=== PATIENT | female | born 1945 | race Caucasian/White ===

== ENCOUNTER 2019-02-05 10:02 | Inpatient (IN) | payer MEDICARE ==
[2019-02-05] MEDS ORDERED: methylPREDNISolone SOD SUCCI 125 MG/2 ML VIAL IV STA (10:25)
[2019-02-05] MEDS ORDERED: IPRATROPIUM-ALBUTEROL 3 ML NEB INHALATION STA (10:25)
[2019-02-05 10:49] LABS: Anisocytosis Slight; Basophils # (A) 0.1 k/uL (0-0.2); Basophils % (A) 1 %; Eosinophils # (A) 0.1 k/uL (0-0.7); Eosinophils % (A) 1 %; HCT 36.8 % (34.0-46.0); Hypochromasia Marked; Lymphocytes # (A) 1.3 k/uL (1.0-4.8); Lymphocytes % (A) 14 %; MCH 27.1 pg (25.0-35.0); MCHC 29.8 g/dL (31.0-37.0); Mean Platelet Volume 7.2; Monocytes # (A) 0.5 k/uL (0-1.0); Monocytes % (A) 6 %; Neutrophils # (A) 7.1 k/uL (1.3-7.7); Neutrophils % (A) 77 %; Platelet Count 306 k/uL (150-450); Poikilocytosis Slight; RBC 4.05 m/uL (3.80-5.40); RDW 17.4 % (11.5-15.5); WBC 9.2 k/uL (3.8-10.6)
--- NOTE | 2019-02-05 10:52 | ED ---
SOB HPI - General Chief Complaint: Shortness of Breath Stated Complaint: SOB Time Seen by Provider: 02/05/19 10:12 Source: patient Mode of arrival: wheelchair Limitations: no limitations - History of Present Illness Initial Comments: 73-year-old female past history of COPD, diabetes on metformin presents today for chief complaint of shortness of breath 1 week. Patient states she has been short of breath especially when a bleeding for the past week. Patient states that she has had shortness of breath for as long she can remember however she states that this is increased from baseline. Patient states she did have an episode of chest pressure yesterday that lasted for a few moments while sitting. Patient states that when she has not experienced again. Patient denies any current chest pain or pressure. Patient states that she has noticed that her right lower extremity has been swollen. Patient denies history of cancer, recent surgeries hemoptysis or history of heart failure. Patient states that she has increased shortness of breath when lying flat. Patient denies cough congestion and fever. She denies any anticoagulation use. Remaining review of systems negative. Upon arrival patient is speaking complete sentences, making joke but does appear to be using accessory muscles. 80% on RA, denies home oxygen. - Related Data Home Medications Medication Instructions Recorded Confirmed Ascorbic Acid [Vitamin C] 1,000 mg PO DAILY 02/05/19 02/05/19 Atorvastatin [Lipitor] 40 mg PO DAILY 02/05/19 02/05/19 Bisoprol/Hydrochlorothiazide 1 tab PO DAILY 02/05/19 02/05/19 [Bisoprolol-Hctz 5-6.25 mg Tab] Cyanocobalamin (Vitamin B-12) 1,000 mcg PO DAILY 02/05/19 02/05/19 [Vitamin B-12] Ezetimibe [Zetia] 10 mg PO DAILY 02/05/19 02/05/19 Ferrous Sulfate [Feosol] 1,300 mg PO DAILY 02/05/19 02/05/19 Glucosamine/Chondr Meyer A Sod [Osteo 1 tab PO DAILY 02/05/19 02/05/19 Bi-Flex Caplet] Levothyroxine Sodium [Synthroid] 200 mcg PO DAILY 02/05/19 02/05/19 Lisinopril [Zestril] 10 mg PO DAILY 02/05/19 02/05/19 Omeprazole [PriLOSEC] 20 mg PO DAILY 02/05/19 02/05/19 Selenium 200 mcg PO DAILY 02/05/19 02/05/19 Venlafaxine HCl [Effexor XR] 75 mg PO DAILY 02/05/19 02/05/19 metFORMIN HCL 1,000 mg PO DAILY 02/05/19 02/05/19 sitaGLIPtin [Januvia] 100 mg PO DAILY 02/05/19 02/05/19 Allergies Allergy/AdvReac Type Severity Reaction Status Date / Time No Known Allergies Allergy Verified 02/05/19 10:43 Review of Systems ROS Statement: Those systems with pertinent positive or pertinent negative responses have been documented in the HPI. ROS Other: All systems not noted in ROS Statement are negative. Past Medical History Past Medical History: COPD, Diabetes Mellitus, Hypertension, Thyroid Disorder History of Any Multi-Drug Resistant Organisms: None Reported Past Surgical History: Cholecystectomy, Tubal Ligation Past Psychological History: No Psychological Hx Reported Smoking Status: Current every day smoker Past Alcohol Use History: None Reported Past Drug Use History: None Reported General Exam - General Exam Comments Initial Comments: General: The patient is awake and alert, in no distress Eye: Pupils are equal, round and reactive to light, extra-ocular movements are intact. No nystagmus. There is normal conjunctiva bilaterally. No signs of icterus. Ears, nose, mouth and throat: There are moist mucous membranes and no oral lesions. Neck: The neck is supple, there is no tenderness or JVD. Cardiovascular: There is a regular rate and rhythm. No murmur, rub or gallop is appreciated. Respiratory: Lungs sounds diminshed at bases.respirations are labored.No wh eezes, stridor, or rhonchi. Rales noted. Use of abdominal muscles Gastrointestinal: Soft, non-distended, non-tender abdomen without masses or organomegaly noted. There is no rebound or guarding present. No CVA tenderness. Bowel sounds are unremarkable. Musculoskeletal: Normal ROM, no tenderness. Strength 5/5. Sensation intact. Radial and DP pulses equal bilaterally 2+. Neurological: A&O x 3. CN II-XII intact, There are no obvious motor or sensory deficits. Coordination appears grossly intact. Speech is normal. Skin: Skin is warm and dry and no rashes or lesions are noted. Right LE pitting edema. Psychiatric: Cooperative, appropriate mood & affect, normal judgment. Limitations: no limitations Course Vital Signs 02/05/19 02/05/19 02/05/19 10:05 10:37 10:45 Temperature 97.3 F L Pulse Rate 108 H 92 Respiratory 26 H 26 H 25 H Rate Blood Pressure 165/74 168/97 O2 Sat by Pulse 80 L 92 L Oximetry 02/05/19 02/05/19 02/05/19 10:48 10:59 11:00 Temperature Pulse Rate 96 98 100 Respiratory 24 Rate Blood Pressure 163/82 O2 Sat by Pulse 91 L Oximetry Medical Decision Making - Medical Decision Making 73-year-old female presenting for shortness of breath increasing for 1 week. Increase with ambulation and lying flat. Lungs bases diminished. Concern for CHF. Chest x-ray revealed extensive pleural effusions most likely from CHF. BNP >05138. Troponin <.030. Patient has no previous diagnosis. Patient is fluid overloaded on examination however is only the right leg CT of the chest revealed no evidence of pulmonary embolism. Patient hypoxia improved from 80%-91% on oxygen. Patient given 40mg IV lasix in ER. Patient admitted to [facility] who spoke with my attending provider Dr. Resendiz. Cardiology on consult. Will obtain ECHO on inpatient basis. Patient agreeable with admission. - Lab Data Result diagrams: 02/05/19 10:32 02/05/19 10:32 Lab Results 02/05/19 02/05/19 02/05/19 Range/Units 10:32 10:32 10:32 WBC 9.2 (3.8-10.6) k/uL RBC 4.05 (3.80-5.40) m/uL Hgb 11.0 L (11.4-16.0) gm/dL Hct 36.8 (34.0-46.0) % MCV 91.0 (80.0-100.0) fL MCH 27.1 (25.0-35.0) pg MCHC 29.8 L (31.0-37.0) g/dL RDW 17.4 H (11.5-15.5) % Plt Count 306 (150-450) k/uL Neutrophils % 77 % Lymphocytes % 14 % Monocytes % 6 % Eosinophils % 1 % Basophils % 1 % Neutrophils # 7.1 (1.3-7.7) k/uL Lymphocytes # 1.3 (1.0-4.8) k/uL Monocytes # 0.5 (0-1.0) k/uL Eosinophils # 0.1 (0-0.7) k/uL Basophils # 0.1 (0-0.2) k/uL Hypochromasia Marked Poikilocytosis Slight Anisocytosis Slight PT 11.3 (9.0-12.0) sec INR 1.1 (<1.2) APTT 23.9 (22.0-30.0) sec D-Dimer 1.77 H (<0.60) mg/L FEU Sodium 141 (137-145) mmol/L Potassium 3.9 (3.5-5.1) mmol/L Chloride 105 (98-107) mmol/L Carbon Dioxide 24 (22-30) mmol/L Anion Gap 12 mmol/L BUN 12 (7-17) mg/dL Creatinine 0.72 (0.52-1.04) mg/dL Est GFR (CKD-EPI)AfAm >90 (>60 ml/min/1.73 sqM) Est GFR (CKD-EPI)NonAf 84 (>60 ml/min/1.73 sqM) Glucose 185 H (74-99) mg/dL Calcium 9.3 (8.4-10.2) mg/dL Magnesium 1.6 (1.6-2.3) mg/dL Total Bilirubin 1.2 (0.2-1.3) mg/dL AST 20 (14-36) U/L ALT 9 (9-52) U/L Alkaline Phosphatase 82 (38-126) U/L Troponin I (0.000-0.034) ng/mL NT-Pro-B Natriuret Pep pg/mL Total Protein 7.7 (6.3-8.2) g/dL Albumin 4.0 (3.5-5.0) g/dL 02/05/19 02/05/19 Range/Units 10:32 10:32 WBC (3.8-10.6) k/uL RBC (3.80-5.40) m/uL Hgb (11.4-16.0) gm/dL Hct (34.0-46.0) % MCV (80.0-100.0) fL MCH (25.0-35.0) pg MCHC (31.0-37.0) g/dL RDW (11.5-15.5) % Plt Count (150-450) k/uL Neutrophils % % Lymphocytes % % Monocytes % % Eosinophils % % Basophils % % Neutrophils # (1.3-7.7) k/uL Lymphocytes # (1.0-4.8) k/uL Monocytes # (0-1.0) k/uL Eosinophils # (0-0.7) k/uL Basophils # (0-0.2) k/uL Hypochromasia Poikilocytosis Anisocytosis PT (9.0-12.0) sec INR (<1.2) APTT (22.0-30.0) sec D-Dimer (<0.60) mg/L FEU Sodium (137-145) mmol/L Potassium (3.5-5.1) mmol/L Chloride (98-107) mmol/L Carbon Dioxide (22-30) mmol/L Anion Gap mmol/L BUN (7-17) mg/dL Creatinine (0.52-1.04) mg/dL Est GFR (CKD-EPI)AfAm (>60 ml/min/1.73 sqM) Est GFR (CKD-EPI)NonAf (>60 ml/min/1.73 sqM) Glucose (74-99) mg/dL Calcium (8.4-10.2) mg/dL Magnesium (1.6-2.3) mg/dL Total Bilirubin (0.2-1.3) mg/dL AST (14-36) U/L ALT (9-52) U/L Alkaline Phosphatase (38-126) U/L Troponin I 0.027 (0.000-0.034) ng/mL NT-Pro-B Natriuret Pep 82108 pg/mL Total Protein (6.3-8.2) g/dL Albumin (3.5-5.0) g/dL Disposition Clinical Impression: New onset of congestive heart failure, Shortness of breath, Pleural effusion, Elevated brain natriuretic peptide (BNP) level, Right leg swelling, D-dimer, elevated Disposition: ADMITTED IP TO THIS HOSP Condition: Stable Is patient prescribed a controlled substance at d/c from ED?: No Referrals: Odin Boswell MD [Primary Care Provider] - 1-2 days Time of Disposition: 12:40 Decision to Admit Reason: Admit from EC Decision Date: 02/05/19 Decision Time: 12:40
--- NOTE | 2019-02-05 10:53 | XR ---
EXAMINATION TYPE: XR chest 1V portable DATE OF EXAM: 02/05/2019 COMPARISON: NONE HISTORY: History of COPD with shortness of breath today. TECHNIQUE: Single frontal portable view of the chest is obtained. FINDINGS: There is cardiomegaly with atherosclerotic aorta is increased alveolar and interstitial ma rkings bilaterally. No large pleural effusion or pneumothorax. Some old left lateral rib fractures a re felt present. IMPRESSION: Suspect CHF exacerbation as is cardiomegaly with mild to moderate alveolar and interstit ial edema suspected bilaterally. Correlate clinically. Comparison with old outside chest x-ray would be beneficial to exclude underlying parenchymal fibrosis.
[2019-02-05] MEDS ORDERED: FUROSEMIDE 10 MG/ML 4 ML VIAL IV STA ×2 (10:54→22:25)
[2019-02-05 10:57] LABS: ALT 9 U/L (9-52); AST 20 U/L (14-36); African American GFR (CKD) >90 (>60 ml/min/1.73 sqM); Alkaline Phosphatase 82 U/L (38-126); Anion Gap 12 mmol/L; Blood Urea Nitrogen 12 mg/dL (7-17); Calcium 9.3 mg/dL (8.4-10.2); Carbon Dioxide 24 mmol/L (22-30); Chloride 105 mmol/L (98-107); Glucose 185 mg/dL (74-99); Magnesium 1.6 mg/dL (1.6-2.3); Potassium 3.9 mmol/L (3.5-5.1); Sodium 141 mmol/L (137-145); Total Bilirubin 1.2 mg/dL (0.2-1.3); Total Protein 7.7 g/dL (6.3-8.2)
[2019-02-05 11:06] LABS: INR 1.1 (<1.2); Partial Thromboplastin Time 23.9 sec (22.0-30.0); Prothrombin Time 11.3 sec (9.0-12.0)
[2019-02-05 11:10] LABS: D-Dimer 1.77 mg/L FEU (<0.60)
--- NOTE | 2019-02-05 11:50 | CT ---
CT CHEST FOR PULMONARY EMBOLISM. EXAMINATION TYPE: CT angio chest DATE OF EXAM: 02/05/2019 INDICATION: Right leg swelling and shortness of breath for [address] DLP: 371.7 mGycm, Automated exposure control for dose reduction was used. CONTRAST: Patient injected with 100 mL of Isovue 370. COMPARISON: Chest x-ray 02/05/2019 TECHNIQUE: CT of the chest is performed on a spiral scan at 2 mm thick sections. Study is performed with intravenous contrast timed for evaluation for pulmonary embolism. This will limit additional po rtions of the evaluation. 3-D MIP images reconstructed by the technologist are reviewed on the compu ter in the coronal and sagittal planes. FINDINGS: No persistent filling defects are evident to suggest an acute pulmonary embolism. No right heart stra in evident. There is a prominent pretracheal lymph nodes present. There appears to be a 1.5 cm pretracheal lymph node superiorly. The ascending aorta diameter at the level of the main pulmonary artery is 4.0 cm. The main pulmonary artery diameter at the bifurcation is 3.4 cm. Emphysematous changes are present bilaterally. There is a small to moderate right pleural effusion. T here is a 0.5 cm peripheral left upper lung field density. Series 406 image 34. Peripheral areas of p neumonitis is in the anterior lateral left upper lobe measuring 0.8 cm. Series 406 image 43. Subtle a reas of pneumonitis within the periphery of the right middle lobe. Compressive atelectasis is likely present at the bilateral lung bases. Minimal left pleural effusion may be present. Limited CT section through the upper abdomen are unremarkable. IMPRESSIONS: 1. No acute pulmonary embolism. 2. Small to moderate right and minimal left pleural effusion with adjacent atelectasis. 3. Scattered areas of pneumonitis and density within the lung dove discussed above.
[2019-02-05] MEDS ORDERED: NALOXONE 0.4 MG/ML 1 ML VIAL IV PRN (12:37)
--- NOTE | 2019-02-05 15:21 | P.HPIM ---
History of Present Illness Chief Complaint: Shortness of breath This very pleasant 73-year-old female past medical history significant for hypertension, diabetes, COPD comes in with shortness of breath. The patient said that she's been having shortness of breath for the past 1 week and the shortness of breath is progressively getting worse and she said that she has shortness of breath for an exertion. She had an episode of chest pressure ye sterday while she was sitting but subsided on its own. She does not complain of any racing heart, she does not complain of any cough, no abdominal pain, nausea and vomiting, or diarrhea constipation, no tingling numbness of any extremities, no itch no rash. Next ER course-temperature was normal heart rate was 100 respiration 20, blood pressure 160-82 satting 91%. Labwork was done which showed WBC 9.2 hemoglobin 11.0 platelets 306 d-dimer was 1.77 sodium 141 potassium 3.9 bun 12 creatinine 0.72 GFR was more than [address] of the chest was done which showed no acute PE, small to moderate right and minimal left pleural effusion with adjacent atelectasis, scattered areas pneumonitis. Chest x-ray was done which possible CHF Review of Systems All systems: negative Past Medical History Past Medical History: COPD, Diabetes Mellitus, Hyperlipidemia, Hypertension, Pneumonia, Thyroid Disorder Additional Past Medical History / Comment(s): NIDDM type II, bronchitis, hypothy roid, anemia with . History of Any Multi-Drug Resistant Organisms: None Reported Past Surgical History: Cholecystectomy, Tonsillectomy, Tubal Ligation Past Anesthesia/Blood Transfusion Reactions: No Reported Reaction, Motion Sickness Smoking Status: Current every day smoker - Past Family History Father Family Medical History: No Reported History Additional Family Medical History / Comment(s): Father lived into his 80s Mother Family Medical History: Myocardial Infarction (ME) Additional Family Medical History / Comment(s): Mother at the age of 56yrs pt believes was from a ME Medications and Allergies Home Medications Medication Instructions Recorded Confirmed Type Ascorbic Acid [Vitamin C] 1,000 mg PO DAILY 02/05/19 02/05/19 History Atorvastatin [Lipitor] 40 mg PO DAILY 02/05/19 02/05/19 History Bisoprol/Hydrochlorothiazide 1 tab PO DAILY 02/05/19 02/05/19 History [Bisoprolol-Hctz 5-6.25 mg Tab] Cyanocobalamin (Vitamin B-12) 1,000 mcg PO DAILY 02/05/19 02/05/19 History [Vitamin B-12] Ezetimibe [Zetia] 10 mg PO DAILY 02/05/19 02/05/19 History Ferrous Sulfate [Feosol] 1,300 mg PO DAILY 02/05/19 02/05/19 History Glucosamine/Chondr Meyer A Sod [Osteo 1 tab PO DAILY 02/05/19 02/05/19 History Bi-Flex Caplet] Levothyroxine Sodium [Synthroid] 200 mcg PO DAILY 02/05/19 02/05/19 History Lisinopril [Zestril] 10 mg PO DAILY 02/05/19 02/05/19 History Omeprazole [PriLOSEC] 20 mg PO DAILY 02/05/19 02/05/19 History Selenium 200 mcg PO DAILY 02/05/19 02/05/19 History Venlafaxine HCl [Effexor XR] 75 mg PO DAILY 02/05/19 02/05/19 History metFORMIN HCL 1,000 mg PO DAILY 02/05/19 02/05/19 History sitaGLIPtin [Januvia] 100 mg PO DAILY 02/05/19 02/05/19 History Allergies Allergy/AdvReac Type Severity Reaction Status Date / Time No Known Allergies Allergy Verified 02/05/19 10:43 Physical Exam Vitals: Vital Signs Temp Pulse Resp BP Pulse Ox 02/05/19 13:30 93 30 H 121/92 91 L 02/05/19 12:30 98 163/84 93 L 02/05/19 11:00 100 24 163/82 91 L 02/05/19 10:59 98 02/05/19 10:48 96 02/05/19 10:45 92 25 H 168/97 92 L 02/05/19 10:37 26 H 02/05/19 10:05 97.3 F L 108 H 26 H 165/74 80 L Intake and Output 02/05/19 02/05/19 02/05/19 06:59 14:59 22:59 Other: Weight 90.718 kg On exam, alert and oriented x3. HEENT: Conjunctivae normal. eyes normal. NECK: No JVD. No thyroid enlargement. No LNs CARDIOVASCULAR: S1, S2 positive RESPIRATION: Breath sounds diminished in the bases. No rhonchi or crackles. No bronchial breathing. ABDOMEN: Soft, nontender . No guarding. no masses palpable. No ascites, No hepatosplenomegaly.Bowel sounds heard. LEGS: Patient is having +2 pedal edema over the right lower r extremity. Patient is having +1 pedal edema in the left extremity NERVOUS SYSTEM: Cranial N 2-12 grossly normal. Moves all 4 limbs. No focal deficits. No sensory deficit. No signs of cerebellar dysfucntion. Skin: no ulcer no rash Joints: No active swelling. No inflammation. Lymphatic system. No LN neck axilla or groin. Results CBC & Chem 7: 02/05/19 10:32 02/05/19 10:32 Labs: Abnormal Lab Results - Last 24 Hours (Table) 02/05/19 02/05/19 02/05/19 Range/Units 10:32 10:32 10:32 Hgb 11.0 L (11.4-16.0) gm/dL MCHC 29.8 L (31.0-37.0) g/dL RDW 17.4 H (11.5-15.5) % D-Dimer 1.77 H (<0.60) mg/L FEU Glucose 185 H (74-99) mg/dL Thrombosis Risk Factor Assmnt - Choose All That Apply Any of the Below Risk Factors Present?: Yes Each Factor Represents 1 point: Abnormal pulmonary function (COPD), Heart failure (<1month), Obesity (BMI >25) Other Risk Factors: Yes Each Risk Factor Represents 2 Points: Age 61-74 years Other congenital or acquired thrombophilia - If yes, enter type in comment: No Thrombosis Risk Factor Assessment Total Risk Factor Score: 5 Thrombosis Risk Factor Assessment Level: High Risk Assessment and Plan Assessment: - Acute respiratory failure - Acute CHF exacerbation - Hypertension - Diabetes - History of COPD - Right lower Ixodes swelling Plan - We'll admit the patient selective unit - We'll continue the Lasix - We'll consult cardiology for the expert recommendations - We'll resume the patient's home medication except for we'll hold off on the patient's metformin and start the patient sliding scale insulin - We'll get the ultrasound of the lower extremities to rule out DVT patient has unequal swelling of the lower extremities - DVT and GI prophylaxis - We'll order for lab work in the morning - Expected length of stay more than 2 midnights - Patient wants a full code
--- NOTE | 2019-02-05 16:37 | US ---
EXAMINATION TYPE: US venous doppler duplex LE BI DATE OF EXAM: 02/05/2019 4:22 PM COMPARISON: NONE CLINICAL HISTORY: R/O DVT. Right foot swelling noted by patient when uses inhaler; in EC for KAMRYN; amalia ateral pleural effusion SIDE PERFORMED: Bilateral TECHNIQUE: The lower extremity deep venous system is examined utilizing real time linear array sonog gama with graded compression, doppler sonography and color-flow sonography. VESSELS IMAGED: Common Femoral Vein Deep Femoral Vein Greater Saphenous Vein * Femoral Vein Popliteal Vein Small Saphenous Vein * Proximal Calf Veins (* superficial vessels) Right Leg: Negative for DVT Left Leg: Negative for DVT IMPRESSION: Normal bilateral leg duplex venous sonogram.
[2019-02-05 21:02] LABS: Glucose,Whole Blood 187 mg/dL (75-99)
[2019-02-05 22:38] LABS: Glucose,Whole Blood 185 mg/dL (75-99)
[2019-02-05] MEDS: INSULIN ASPART (NovoLOG) 100 UNIT/ML VIAL SQ SCH (22:40)
[2019-02-06 06:29] LABS: Glucose,Whole Blood 125 mg/dL (75-99)
[2019-02-06] MEDS: INSULIN ASPART (NovoLOG) 100 UNIT/ML VIAL SQ SCH ×4 (06:36→21:23)
[2019-02-06] MEDS: LEVOTHYROXINE 100 MCG TAB PO SCH (06:49)
[2019-02-06] MEDS: PANTOPRAZOLE 40 MG TABLET PO SCH (06:49)
[2019-02-06 08:11] LABS: Anisocytosis Slight; HCT 35.8 % (34.0-46.0); HGB 10.6 gm/dL (11.4-16.0); Hypochromasia Marked; MCHC 29.6 g/dL (31.0-37.0); MCV 91.2 fL (80.0-100.0); Platelet Count 303 k/uL (150-450); Poikilocytosis Slight; RBC 3.92 m/uL (3.80-5.40); RDW 17.2 % (11.5-15.5); WBC 11.6 k/uL (3.8-10.6)
--- NOTE | 2019-02-06 08:13 | ECHOF ---
Referral Reason:new onset CHF MEASUREMENTS -------- HEIGHT: 165.1 cm WEIGHT: 90.7 kg BP: 121/92 RVIDd: 4.7 cm (< 3.3) IVSd: 1.6 cm (0.6 - 1.1) LVIDd: 4.4 cm (3.9 - 5.3) LVPWd: 1.4 cm (0.6 - 1.1) IVSs: 1.5 cm LVIDs: 3.8 cm LVPWs: 1.8 cm LAESV Index (A-L): 49.36 ml/m Ao Diam: 2.8 cm (2.0 - 3.7) AV Cusp: 1.2 cm (1.5 - 2.6) LA Diam: 5.4 cm (2.7 - 3.8) MV E Lon: 1.60 m/s MV DecT: 196 ms MV A Lon: 1.86 m/s MV E/A Ratio: 0.86 AV maxP.98 mmHg AV meanP.70 mmHg AR PHT: 356 ms RAP: 20.00 mmHg RVSP: 65.35 mmHg FINDINGS -------- Sinus rhythm. This was a technically difficult study with suboptimal apical views. The left ventricular size is normal. There is moderate concentric left ventricular hypertrophy. T here is moderate global hypokinesis of LV . Overall left ventricular systolic function is moderatel y impaired with, an EF between 35 - 40 %. Left ventricular fillimg pressure cannot be estimated due to severe mitral annular calcification. Septal Hypokinesis Posterior Hypokinesis. The right ventricle is severely enlarged. LA is severely dilated >40 ml/m2 RA appears enlarged. Lumason used Interatrial and interventricular septum intact. There is moderate to severe aortic valve sclerosis. There is [id number] aortic regurgitation. There is mild aortic stenosis present. Peak/mean gradient across the Aortic Valve is 31.98mmHg / 15.70mmHg. The mitral valve leaflets are moderately thickened. Severe mitral annular calcification present. Moderate mitral regurgitation is present. Moderate to severe tricuspid regurgitation present. There is severe pulmonary hypertension. The r ight ventricular systolic pressure, as measured by Doppler, is 65.35mmHg. The pulmonic valve is normal. The aortic root size is normal. The inferior vena cava is dilated with no significant inspiratory collapse which is consistent estima carmencita right atrial pressure of >20 mmHg. There is a small, generalized pericardial effusion present. CONCLUSIONS -------- 1. Sinus rhythm. 2. This was a technically difficult study with suboptimal apical views. 3. The left ventricular size is normal. 4. There is moderate concentric left ventricular hypertrophy. 5. There is moderate global hypokinesis of LV . 6. Left ventricular fillimg pressure cannot be estimated due to severe mitral annular calcification. 7. Septal Hypokinesis 8. Posterior Hypokinesis. 9. The right ventricle is severely enlarged. 10. LA is severely dilated >40 ml/m2 11. RA appears enlarged. 12. Lumason used 13. Interatrial and interventricular septum intact. 14. There is moderate to severe aortic valve sclerosis. 15. There is [id number] aortic regurgitation. 16. There is mild aortic stenosis present. 17. Peak/mean gradient across the Aortic Valve is 31.98mmHg / 15.70mmHg. 18. The mitral valve leaflets are moderately thickened. 19. Severe mitral annular calcification present. 20. Moderate mitral regurgitation is present. 21. Moderate to severe tricuspid regurgitation present. 22. There is severe pulmonary hypertension. 23. The right ventricular systolic pressure, as measured by Doppler, is 65.35mmHg. 24. The pulmonic valve is normal. 25. The aortic root size is normal. 26. The inferior vena cava is dilated with no significant inspiratory collapse which is consistent es timated right atrial pressure of >20 mmHg. 27. There is a small, generalized pericardial effusion present. CLIMATOLOGIST: Amy Pinedo RDCS
--- NOTE | 2019-02-06 08:13 | P.CRDCN ---
History of Present Illness Consult date: 02/06/19 Requesting physician: Srikanth Martinez Consult reason: congestive heart failure Chief complaint: Short of breath History of present illness: This is a pleasant 73-year-old female with history of diabetes, hypertension, hyperlipidemia, nicotine dependence for 50 years, hypothyroidism, who presents to the hospital with symptoms of progressively worsening shortness of breath over a 2 week duration. Patient states approximately one week ago the weather was extremely hot and humid and she felt awful, since then her breathing is been getting progressively worse. She denies any PND or orthopnea. She does have a productive coarse cough. Asked x-ray on presentation here shows congestive heart failure exacerbation with mild to moderate interstitial edema bilaterally. CTA of the chest did not reveal any acute pulmonary embolism, small to moderate right and minimal left-sided pleural effusion with atelectasis. Scattered areas of pneumonitis and density within the lung dove. KG shows a sinus tachycardia with nonspecific ST-T wave changes. Venous duplex study of the bilateral lower extremities was performed which was negative for DVT. I pressure on arrival here 165/74 with a heart rate of 108, 80% on room air, 97.3 temperature. I pressure this morning 147/68 with a heart rate of 90, 93% on 5 L of oxygen. Blood cell count 9.2, hemoglobin 11, platelet count 306. D-dimer 1.7, sodium 141, potassium 3.9, BUN 12, creatinine 0.7. BNP level 19,500. Magnesium 1.6. Troponin 0.0-2, 0.033, 0.041. At the time of my examination this morning, patient still appears to be short of breath, continues to have coarse cough. Past Medical History Past Medical History: COPD, Diabetes Mellitus, Hyperlipidemia, Hypertension, Pneumonia, Thyroid Disorder Additional Past Medical History / Comment(s): NIDDM type II, bronchitis, hypothyroid, anemia with . History of Any Multi-Drug Resistant Organisms: None Reported Past Surgical History: Cholecystectomy, Tonsillectomy, Tubal Ligation Past Anesthesia/Blood Transfusion Reactions: No Reported Reaction, Motion Sickness Smoking Status: Current every day smoker - Past Family History Father Family Medical History: No Reported History Additional Family Medical History / Comment(s): Father lived into his 80s Mother Family Medical History: Myocardial Infarction ([place]) Additional Family Medical History / Comment(s): Mother at the age of 56yrs pt believes was from a [place] Medications and Allergies Home Medications Medication Instructions Recorded Confirmed Type Ascorbic Acid [Vitamin C] 1,000 mg PO DAILY 02/05/19 02/05/19 History Atorvastatin [Lipitor] 40 mg PO DAILY 02/05/19 02/05/19 History Bisoprol/Hydrochlorothiazide 1 tab PO DAILY 02/05/19 02/05/19 History [Bisoprolol-Hctz 5-6.25 mg Tab] Cyanocobalamin (Vitamin B-12) 1,000 mcg PO DAILY 02/05/19 02/05/19 History [Vitamin B-12] Ezetimibe [Zetia] 10 mg PO DAILY 02/05/19 02/05/19 History Ferrous Sulfate [Feosol] 1,300 mg PO DAILY 02/05/19 02/05/19 History Glucosamine/Chondr Meyer A Sod [Osteo 1 tab PO DAILY 02/05/19 02/05/19 History Bi-Flex Caplet] Levothyroxine Sodium [Synthroid] 200 mcg PO DAILY 02/05/19 02/05/19 History Lisinopril [Zestril] 10 mg PO DAILY 02/05/19 02/05/19 History Omeprazole [PriLOSEC] 20 mg PO DAILY 02/05/19 02/05/19 History Selenium 200 mcg PO DAILY 02/05/19 02/05/19 History Venlafaxine HCl [Effexor XR] 75 mg PO DAILY 02/05/19 02/05/19 History metFORMIN HCL 1,000 mg PO DAILY 02/05/19 02/05/19 History sitaGLIPtin [Januvia] 100 mg PO DAILY 02/05/19 02/05/19 History Allergies Allergy/AdvReac Type Severity Reaction Status Date / Time No Known Allergies Allergy Verified 02/05/19 10:43 Physical Exam Vitals: Vital Signs Temp Pulse Pulse Resp BP BP Pulse Ox 02/06/19 04:20 98.4 F 93 20 147/68 93 L 02/06/19 00:00 98.3 F 104 H 20 157/80 93 L 02/05/19 19:50 97.7 F 101 H 22 139/75 94 L 02/05/19 17:59 98.1 F 90 22 134/64 92 L 02/05/19 13:30 93 30 H 121/92 91 L 02/05/19 12:30 98 163/84 93 L 02/05/19 11:00 100 24 163/82 91 L 02/05/19 10:59 98 02/05/19 10:48 96 02/05/19 10:45 92 25 H 168/97 92 L 02/05/19 10:37 26 H 02/05/19 10:05 97.3 F L 108 H 26 H 165/74 80 L Intake and Output 02/05/19 02/06/19 02/06/19 22:59 06:59 14:59 Other: # Voids 0 1 Weight 84.5 kg PHYSICAL EXAMINATION: GENERAL: 73-year-old female in no acute distress at the time of my examination HEENT: Head is atraumatic, normocephalic. Pupils equal, round. Sclera anicteric. Conjunctiva are clear. Mucous membranes of the mouth are moist. Neck is supple. There is elevated jugular venous pressure. No carotid bruit is heard. HEART EXAMINATION: Heart S1 1 S2, tachycardic, systolic murmur heard CHEST EXAMINATION: Lungs reveal scattered coarse rhonchi, wheezing throughout with diminished air entry to the bases ABDOMEN: Soft, nontender. Bowel sounds are heard. No organomegaly noted. EXTREMITIES: 2+ peripheral pulses with 1+ evidence of peripheral edema and no calf tenderness noted. NEUROLOGIC patient is awake, alert and oriented 3 . Results 02/05/19 10:32 02/05/19 10:32 Cardiac Enzymes 02/05/19 02/05/19 02/05/19 Range/Units 10:32 10:32 16:46 AST 20 (14-36) U/L Troponin I 0.027 0.033 (0.000-0.034) ng/mL 02/05/19 Range/Units 22:51 AST (14-36) U/L Troponin I 0.041 H* (0.000-0.034) ng/mL Coagulation 02/05/19 Range/Units 10:32 PT 11.3 (9.0-12.0) sec APTT 23.9 (22.0-30.0) sec CBC 02/05/19 Range/Units 10:32 WBC 9.2 (3.8-10.6) k/uL RBC 4.05 (3.80-5.40) m/uL Hgb 11.0 L (11.4-16.0) gm/dL Hct 36.8 (34.0-46.0) % Plt Count 306 (150-450) k/uL Comprehensive Metabolic Panel 02/05/19 Range/Units 10:32 Sodium 141 (137-145) mmol/L Potassium 3.9 (3.5-5.1) mmol/L Chloride 105 (98-107) mmol/L Carbon Dioxide 24 (22-30) mmol/L BUN 12 (7-17) mg/dL Creatinine 0.72 (0.52-1.04) mg/dL Glucose 185 H (74-99) mg/dL Calcium 9.3 (8.4-10.2) mg/dL AST 20 (14-36) U/L ALT 9 (9-52) U/L Alkaline Phosphatase 82 (38-126) U/L Total Protein 7.7 (6.3-8.2) g/dL Albumin 4.0 (3.5-5.0) g/dL Current Medications Generic Name Dose Route Start Last Admin Trade Name Freq PRN Reason Stop Dose Admin Ascorbic Acid 1,000 mg 02/06/19 09:00 Vitamin C PO DAILY [facility] Atorvastatin Calcium 40 mg 02/06/19 09:00 Lipitor PO DAILY [facility] Bisoprolol Fumarate 1 each 02/06/19 09:00 Ziac 5-6.25 PO DAILY [facility] Cyanocobalamin 1,000 mcg 02/06/19 09:00 Vitamin B-12 PO DAILY [facility] Ezetimibe 10 mg 02/06/19 09:00 Zetia PO DAILY [facility] Furosemide 40 mg 02/06/19 08:00 Lasix IV 0800,1700 [facility] Insulin Aspart 0 unit 02/05/19 21:00 02/06/19 06:36 Novolog SQ Not Given ACHS [facility] Protocol Levothyroxine Sodium 200 mcg 02/06/19 06:30 02/06/19 06:49 Synthroid PO 200 mcg DAILY@0630 [facility] Administration Linagliptin 5 mg 02/06/19 09:00 Tradjenta PO DAILY [facility] Lisinopril 10 mg 02/06/19 09:00 Zestril PO DAILY [facility] Melatonin 3 mg 02/06/19 21:00 Melatonin PO HS [facility] Naloxone HCl 0.2 mg 02/05/19 12:37 Narcan IV Q2M PRN Opioid Reversal Pantoprazole Sodium 40 mg 02/06/19 07:30 02/06/19 06:49 Protonix PO 40 mg AC-BRKFST [facility] Administration Venlafaxine HCl 75 mg 02/06/19 09:00 Effexor Xr PO DAILY [facility] Intake and Output 02/05/19 02/06/19 02/06/19 22:59 06:59 14:59 Other: # Voids 0 1 Weight 84.5 kg 02/05/19 10:32 02/05/19 10:32 EKG Interpretations (text) EKG shows a sinus tachycardia with nonspecific ST-T wave changes Assessment and Plan Plan: Assessment and plan #1 congestive cardiac failure, LV function unknown #2 acute tracheobronchitis #3 hypertension #4 diabetes #5 hyperlipidemia #6 50 year smoking history #7 hypothyroidism #8 abnormality in troponin, secondary to hypoxia, cannot completely rule out underlying coronary artery disease in this 73-year-old female with multiple risk factors. Plan CTA of the chest was negative for pulmonary embolism, we will obtain an echocardiogram with Doppler study, obtain TSH level. Continue IV Lasix. Continue to monitor intake and output along with daily weights and daily lytes BUN and creatinine. Further recommendations to follow. DNP note has been reviewed, I agree with a documented findings and plan of care. Patient was seen and examined.
[2019-02-06 08:21] LABS: Calcium 9.2 mg/dL (8.4-10.2); Potassium 3.6 mmol/L (3.5-5.1)
[2019-02-06] MEDS: CYANOCOBALAMIN 500 MCG TAB PO SCH (08:37)
[2019-02-06] MEDS: FUROSEMIDE 10 MG/ML 4 ML VIAL IV SCH ×2 (08:37→17:04)
[2019-02-06] MEDS: ATORVASTATIN 40 MG TAB PO SCH (08:37)
[2019-02-06] MEDS: ASCORBIC ACID 500 MG TAB PO SCH (08:37)
[2019-02-06] MEDS: BISOPROLOL-HCTZ 5-6.25 MG 1 EACH TAB PO SCH (08:38)
[2019-02-06] MEDS: EZETIMIBE 10 MG TAB PO SCH (08:38)
[2019-02-06] MEDS: LISINOPRIL 10 MG TAB PO SCH (08:38)
[2019-02-06] MEDS: LINAGLIPTIN 5 MG TABLET PO SCH (08:38)
[2019-02-06] MEDS: VENLAFAXINE HCL ER 75 MG CAP PO SCH (08:38)
[2019-02-06 12:22] LABS: Glucose,Whole Blood 158 mg/dL (75-99)
[2019-02-06 13:35] VITALS: BMI 30.9
--- NOTE | 2019-02-06 14:47 | P.CRDCN ---
History of Present Illness History of present illness: Please see full dictation by nurse practitioner 73-year-old female presenting with shortness of breath with COPD exacerbation but she also complains of orthopnea and PND for more month No chest discomfort or angina like symptoms Systolic murmur at the apex audible Suggest Management of COPD exacerbation Diuresis 2-D echo and Doppler study to assess LV function As an outpatient will follow Dr. Larios Borderline abnormal troponins of 0.04 and 0.06 Potassium 3.6 BUN 14 creatinine 0.8 to TSH 1.6 Past Medical History Past Medical History: COPD, Diabetes Mellitus, Hyperlipidemia, Hypertension, Pneumonia, Thyroid Disorder Additional Past Medical History / Comment(s): NIDDM type II, bronchitis, hypothyroid, anemia with . History of Any Multi-Drug Resistant Organisms: None Reported Past Surgical History: Cholecystectomy, Tonsillectomy, Tubal Ligation Past Anesthesia/Blood Transfusion Reactions: No Reported Reaction, Motion Sickness Smoking Status: Current every day smoker - Past Family History Father Family Medical History: No Reported History Additional Family Medical History / Comment(s): Father lived into his 80s Mother Family Medical History: Myocardial Infarction ([place]) Additional Family Medical History / Comment(s): Mother at the age of 56yrs pt believes was from a [place] Medications and Allergies Home Medications Medication Instructions Recorded Confirmed Type Ascorbic Acid [Vitamin C] 1,000 mg PO DAILY 02/05/19 02/05/19 History Atorvastatin [Lipitor] 40 mg PO DAILY 02/05/19 02/05/19 History Bisoprol/Hydrochlorothiazide 1 tab PO DAILY 02/05/19 02/05/19 History [Bisoprolol-Hctz 5-6.25 mg Tab] Cyanocobalamin (Vitamin B-12) 1,000 mcg PO DAILY 02/05/19 02/05/19 History [Vitamin B-12] Ezetimibe [Zetia] 10 mg PO DAILY 02/05/19 02/05/19 History Ferrous Sulfate [Feosol] 1,300 mg PO DAILY 02/05/19 02/05/19 History Glucosamine/Chondr Meyer A Sod [Osteo 1 tab PO DAILY 02/05/19 02/05/19 History Bi-Flex Caplet] Levothyroxine Sodium [Synthroid] 200 mcg PO DAILY 02/05/19 02/05/19 History Lisinopril [Zestril] 10 mg PO DAILY 02/05/19 02/05/19 History Omeprazole [PriLOSEC] 20 mg PO DAILY 02/05/19 02/05/19 History Selenium 200 mcg PO DAILY 02/05/19 02/05/19 History Venlafaxine HCl [Effexor XR] 75 mg PO DAILY 02/05/19 02/05/19 History metFORMIN HCL 1,000 mg PO DAILY 02/05/19 02/05/19 History sitaGLIPtin [Januvia] 100 mg PO DAILY 02/05/19 02/05/19 History Allergies Allergy/AdvReac Type Severity Reaction Status Date / Time No Known Allergies Allergy Verified 02/05/19 10:43 Physical Exam Vitals: Vital Signs Temp Pulse Pulse Resp BP BP Pulse Ox 02/06/19 12:00 69 16 127/69 97 02/06/19 08:00 101 H 16 141/74 95 02/06/19 04:20 98.4 F 93 20 147/68 93 L 02/06/19 00:00 98.3 F 104 H 20 157/80 93 L 02/05/19 19:50 97.7 F 101 H 22 139/75 94 L 02/05/19 17:59 98.1 F 90 22 134/64 92 L Intake and Output 02/05/19 02/06/19 02/06/19 22:59 06:59 14:59 Intake Total 240 Balance 240 Intake: Oral 240 Other: # Voids 0 1 Weight 84.5 kg 84.5 kg Results 02/06/19 07:16 02/06/19 07:16 Cardiac Enzymes 02/05/19 02/05/19 02/06/19 Range/Units 16:46 22:51 07:16 Troponin I 0.033 0.041 H* 0.064 H* (0.000-0.034) ng/mL CBC 02/06/19 Range/Units 07:16 WBC 11.6 H (3.8-10.6) k/uL RBC 3.92 (3.80-5.40) m/uL Hgb 10.6 L (11.4-16.0) gm/dL Hct 35.8 (34.0-46.0) % Plt Count 303 (150-450) k/uL Comprehensive Metabolic Panel 02/06/19 Range/Units 07:16 Sodium 142 (137-145) mmol/L Potassium 3.6 (3.5-5.1) mmol/L Chloride 101 (98-107) mmol/L Carbon Dioxide 31 H (22-30) mmol/L BUN 14 (7-17) mg/dL Creatinine 0.82 (0.52-1.04) mg/dL Glucose 131 H (74-99) mg/dL Calcium 9.2 (8.4-10.2) mg/dL Current Medications Generic Name Dose Route Start Last Admin Trade Name Freq PRN Reason Stop Dose Admin Ascorbic Acid 1,000 mg 02/06/19 09:00 02/06/19 08:37 Vitamin C PO 1,000 mg DAILY [facility] Administration Atorvastatin Calcium 40 mg 02/06/19 09:00 02/06/19 08:37 Lipitor PO 40 mg DAILY [facility] Administration Bisoprolol Fumarate 1 each 02/06/19 09:00 02/06/19 08:38 Ziac 5-6.25 PO 1 each DAILY [facility] Administration Cyanocobalamin 1,000 mcg 02/06/19 09:00 02/06/19 08:37 Vitamin B-12 PO 1,000 mcg DAILY [facility] Administration Ezetimibe 10 mg 02/06/19 09:00 02/06/19 08:38 Zetia PO 10 mg DAILY [facility] Administration Furosemide 40 mg 02/06/19 08:00 02/06/19 08:37 Lasix IV 40 mg 0800,1700 [facility] Administration Insulin Aspart 0 unit 02/05/19 21:00 02/06/19 12:55 Novolog SQ Not Given ACHS [facility] Protocol Levothyroxine Sodium 200 mcg 02/06/19 06:30 02/06/19 06:49 Synthroid PO 200 mcg DAILY@0630 [facility] Administration Linagliptin 5 mg 02/06/19 09:00 02/06/19 08:38 Tradjenta PO 5 mg DAILY [facility] Administration Lisinopril 10 mg 02/06/19 09:00 02/06/19 08:38 Zestril PO 10 mg DAILY [facility] Administration Melatonin 3 mg 02/06/19 21:00 Melatonin PO HS [facility] Naloxone HCl 0.2 mg 02/05/19 12:37 Narcan IV Q2M PRN Opioid Reversal Pantoprazole Sodium 40 mg 02/06/19 07:30 02/06/19 06:49 Protonix PO 40 mg AC-BRKFST [facility] Administration Venlafaxine HCl 75 mg 02/06/19 09:00 02/06/19 08:38 Effexor Xr PO 75 mg DAILY [facility] Administration Intake and Output 02/05/19 02/06/19 02/06/19 22:59 06:59 14:59 Intake Total 240 Balance 240 Intake: Oral 240 Other: # Voids 0 1 Weight 84.5 kg 84.5 kg Patient Weight 02/07/19 06:59 Weight 84.5 kg 02/06/19 07:16 02/06/19 07:16
[2019-02-06 16:51] LABS: Glucose,Whole Blood 154 mg/dL (75-99)
[2019-02-06] MEDS: IPRATROPIUM-ALBUTEROL 3 ML NEB INHALATION SCH ×3 (17:04→20:35)
[2019-02-06 19:33] LABS: Hemoglobin A1C 6.5 % (4.0-6.0)
--- NOTE | 2019-02-06 20:07 | P.PN ---
Subjective This very pleasant 73-year-old female past medical history significant for hypertension, diabetes, COPD comes in with shortness of breath. The patient said that she's been having shortness of breath for the past 1 week and the shortness of breath is progressively getting worse and she said that she has shortness of breath for an exertion. She had an episode of chest pressure yesterday while she was sitting but subsided on its own. She does not complain of any racing heart, she does not complain of any cough, no abdominal pain, nausea and vomiting, or diarrhea constipation, no tingling numbness of any extremities, no itch no rash. Next ER course-temperature was normal heart rate was 100 respiration 20, blood pressure 160-82 satting 91%. Labwork was done which showed WBC 9.2 hemoglobin 11.0 platelets 306 d-dimer was 1.77 sodium 141 potassium 3.9 bun 12 creatinine 0.72 GFR was more than [address] of the chest was done which showed no acute PE, small to moderate right and minimal left pleural effusion with adjacent atelectasis, scattered areas pneumonitis. Chest x-ray was done which possible CHF 02/06/2019 Patient says that he is doing better today. SOB better No chest pain, no racing heart Objective - Vital Signs Vital signs: Vital Signs Temp 98.4 F 02/06/19 04:20 Pulse 68 02/06/19 17:14 Resp 16 02/06/19 15:13 BP 127/69 02/06/19 12:00 Pulse Ox 94 L 02/06/19 17:07 Intake & Output 02/06/19 02/06/19 02/07/19 06:59 18:59 06:59 Intake Total 240 240 Balance 240 240 Weight 84.5 kg 84.5 kg Intake: Oral 240 240 Other: # Voids 1 - Exam On exam, alert and oriented x3. HEENT: Conjunctivae normal. eyes normal. NECK: No JVD. No thyroid enlargement. No LNs CARDIOVASCULAR: S1, S2 positive RESPIRATION: Breath sounds diminished in the bases. No rhonchi or crackles. No bronchial breathing. ABDOMEN: Soft, nontender . No guarding. no masses palpable. No ascites, No hepatosplenomegaly.Bowel sounds heard. LEGS: Patient is having +2 pedal edema over the right lower r extremity. Patient is having +1 pedal edema in the left extremity NERVOUS SYSTEM: Cranial N 2-12 grossly normal. Moves all 4 limbs. No focal deficits. No sensory deficit. No signs of cerebellar dysfucntion. Skin: no ulcer no rash Joints: No active swelling. No inflammation. Lymphatic system. No LN neck axilla or groin. - Labs CBC & Chem 7: 02/06/19 07:16 02/06/19 07:16 Labs: Abnormal Lab Results - Last 24 Hours (Table) 02/05/19 02/05/19 02/05/19 Range/Units 21:00 22:36 22:51 WBC (3.8-10.6) k/uL Hgb (11.4-16.0) gm/dL MCHC (31.0-37.0) g/dL RDW (11.5-15.5) % Carbon Dioxide (22-30) mmol/L Glucose (74-99) mg/dL POC Glucose (mg/dL) 187 H 185 H (75-99) mg/dL Hemoglobin A1c (4.0-6.0) % Troponin I 0.041 H* (0.000-0.034) ng/mL 02/06/19 02/06/19 02/06/19 Range/Units 06:26 07:16 07:16 WBC 11.6 H (3.8-10.6) k/uL Hgb 10.6 L (11.4-16.0) gm/dL MCHC 29.6 L (31.0-37.0) g/dL RDW 17.2 H (11.5-15.5) % Carbon Dioxide (22-30) mmol/L Glucose (74-99) mg/dL POC Glucose (mg/dL) 125 H (75-99) mg/dL Hemoglobin A1c 6.5 H (4.0-6.0) % Troponin I (0.000-0.034) ng/mL 02/06/19 02/06/19 02/06/19 Range/Units 07:16 07:16 12:02 WBC (3.8-10.6) k/uL Hgb (11.4-16.0) gm/dL MCHC (31.0-37.0) g/dL RDW (11.5-15.5) % Carbon Dioxide 31 H (22-30) mmol/L Glucose 131 H (74-99) mg/dL POC Glucose (mg/dL) 158 H (75-99) mg/dL Hemoglobin A1c (4.0-6.0) % Troponin I 0.064 H* (0.000-0.034) ng/mL 02/06/19 Range/Units 16:49 WBC (3.8-10.6) k/uL Hgb (11.4-16.0) gm/dL MCHC (31.0-37.0) g/dL RDW (11.5-15.5) % Carbon Dioxide (22-30) mmol/L Glucose (74-99) mg/dL POC Glucose (mg/dL) 154 H (75-99) mg/dL Hemoglobin A1c (4.0-6.0) % Troponin I (0.000-0.034) ng/mL Assessment and Plan Assessment: - Acute respiratory failure - Acute CHF exacerbation - Hypertension - Diabetes - History of COPD - Right lower Ixodes swelling Plan - We'll admit the patient selective unit - We'll continue the Lasix - We'll consult cardiology for the expert recommendations - We'll resume the patient's home medication except for we'll hold off on the patient's metformin and start the patient sliding scale insulin - We'll get the ultrasound of the lower extremities to rule out DVT patient has unequal swelling of the lower extremities - DVT and GI prophylaxis - We'll order for lab work in the morning - Expected length of stay more than 2 midnights - Patient wants a full code 02/06/2019 - Will continue lasix - Pt havinf good urine output - Continue rest of the medications - Will f/u
[2019-02-06 21:05] LABS: Glucose,Whole Blood 175 mg/dL (75-99)
[2019-02-06] MEDS: DOXYCYCLINE 100 MG CAP PO SCH (21:23)
[2019-02-06] MEDS: MELATONIN 3 MG TABLET PO SCH (21:23)
[2019-02-07 06:38] LABS: Glucose,Whole Blood 148 mg/dL (75-99)
[2019-02-07] MEDS: IPRATROPIUM-ALBUTEROL 3 ML NEB INHALATION SCH ×4 (06:47→20:02)
[2019-02-07] MEDS: INSULIN ASPART (NovoLOG) 100 UNIT/ML VIAL SQ SCH ×4 (07:05→20:14)
[2019-02-07] MEDS: PANTOPRAZOLE 40 MG TABLET PO SCH (07:05)
[2019-02-07] MEDS: LEVOTHYROXINE 100 MCG TAB PO SCH (07:05)
[2019-02-07] MEDS: FUROSEMIDE 10 MG/ML 4 ML VIAL IV SCH (08:20)
[2019-02-07] MEDS: LISINOPRIL 10 MG TAB PO SCH (08:20)
[2019-02-07] MEDS: ATORVASTATIN 40 MG TAB PO SCH (08:20)
[2019-02-07] MEDS: CYANOCOBALAMIN 500 MCG TAB PO SCH (08:20)
[2019-02-07] MEDS: ASCORBIC ACID 500 MG TAB PO SCH (08:21)
[2019-02-07] MEDS: LINAGLIPTIN 5 MG TABLET PO SCH (08:21)
[2019-02-07] MEDS: VENLAFAXINE HCL ER 75 MG CAP PO SCH (08:34)
[2019-02-07] MEDS: EZETIMIBE 10 MG TAB PO SCH (08:34)
[2019-02-07] MEDS: DOXYCYCLINE 100 MG CAP PO SCH ×2 (08:34→20:15)
[2019-02-07] MEDS: BISOPROLOL-HCTZ 5-6.25 MG 1 EACH TAB PO SCH (08:34)
[2019-02-07 12:09] LABS: Glucose,Whole Blood 161 mg/dL (75-99)
--- NOTE | 2019-02-07 12:14 | P.PN ---
Subjective Progress Note Date: 02/07/19 Principal diagnosis: New onset congestive heart failure Ms. Smalls is a 73-year-old female with a past medical history of hypertension, diabetes, COPD coming in with difficulty in breathing. Patient was also having chest pressure-like symptoms and so admitted to the hospital. Patient is a long-time smoker with almost 3 packs a day for the past 50 years. Patient had an echocardiogram done showing ejection fraction of 35-40% which is new. On 02/07/2019 - patient is sitting up in the bed. She complains of mild dizziness. She denies having any chest pain. Reports that her difficulty in breathing is getting better. Also states that her lower extremity edema is better. She denies having any blurring of vision or loss of consciousness. Patient denies having any weakness of her extremities. She complains of dizziness mostly on getting up and out of the bed. Constitutional: No fevers chills or rigors GI: No abdominal pain nausea vomiting or diarrhea : No hematuria or dysuria Neurological: Positive for dizziness,which abnormalities or weakness of her extremities Active Medications Albuterol/Ipratropium (Duoneb 0.5 Mg-3 Mg/3 Ml Soln) 3 ml INHALATION RT-QID [facility] Ascorbic Acid (Vitamin C) 1,000 mg PO DAILY [facility] Atorvastatin Calcium (Lipitor) 40 mg PO DAILY [facility] Bisoprolol Fumarate (Ziac 5-6.25) 1 each PO DAILY [facility] Cyanocobalamin (Vitamin B-12) 1,000 mcg PO DAILY [facility] Doxycycline Monohydrate (Vibramycin) 100 mg PO BID [facility] Ezetimibe (Zetia) 10 mg PO DAILY [facility] Furosemide (Lasix) 40 mg IV 0800,1700 [facility] L Insulin Aspart (Novolog) 0 unit SQ ACHS [facility]; Protocol Levothyroxine Sodium (Synthroid) 200 mcg PO DAILY@0630 [facility] Linagliptin (Tradjenta) 5 mg PO DAILY [facility] Lisinopril (Zestril) 10 mg PO DAILY [facility] Melatonin (Melatonin) 3 mg PO HS [facility] Naloxone HCl (Narcan) 0.2 mg IV Q2M PRN Pantoprazole Sodium (Protonix) 40 mg PO AC-BRKFST [facility] Venlafaxine HCl (Effexor Xr) 75 mg PO DAILY [facility] Objective - Vital Signs Vital signs: Vital Signs Temp 97.5 F L 02/07/19 11:25 Pulse 67 07/20/19 11:25 Resp 20 02/07/19 11:25 BP 145/66 02/07/19 11:25 Pulse Ox 91 L 02/07/19 11:25 Intake & Output 02/06/19 02/07/19 02/07/19 18:59 06:59 18:59 Intake Total 240 480 360 Balance 240 480 360 Weight 84.5 kg 84 kg Intake: Oral 240 480 360 Other: # Voids 1 - Exam GEN. APPEARANCE: Elderly female lying in bed. HEAD EXAM: atraumatic, normocephalic, normal inspection EYE EXAM: No pallor. No icterus RESPIRATORY EXAM: Decreased breath sounds in all lung dove. No wheezes or crackles. CARDIOVASCULAR EXAM: S1 and S2 and. Positive for pansystolic murmur. GI/ABDOMINAL EXAM: soft, normal bowel sounds. Absent: distended, tenderness, guarding, rebound, rigid EXTREMITIES EXAM: Very mild pitting edema in both lower extremities NEUROLOGICAL EXAM: alert, oriented X3, no focal neurological deficits PSYCHIATRIC EXAM: normal affect, normal mood SKIN EXAM: warm, dry, intact, normal color. Absent: rash - Labs CBC & Chem 7: 02/06/19 07:16 02/06/19 07:16 Labs: Abnormal Lab Results - Last 24 Hours (Table) 02/06/19 02/06/19 02/06/19 Range/Units 07:16 12:02 16:49 POC Glucose (mg/dL) 158 H 154 H (75-99) mg/dL Hemoglobin A1c 6.5 H (4.0-6.0) % 02/06/19 02/07/19 Range/Units 21:03 06:37 POC Glucose (mg/dL) 175 H 148 H (75-99) mg/dL Hemoglobin A1c (4.0-6.0) % Assessment and Plan Assessment: ASSESSMENT Acute hypoxic respiratory failure New onset congestive heart failure - systolic Dizziness COPD Hypertension Hyperlipidemia Type 2 diabetes mellitus Hypothyroidism Chronic nicotine dependence- [id number] smoking PLAN: Patient is currently being treated for CHF and COPD exacerbation. The patient has been dizzy she is getting 40 IV Lasix twice a day. We'll check orthostatics and if positive will decrease the dose of Lasix. Cardiology on board and following the patient. Continue with doxycycline in breathing treatments for her COPD. Continue on sliding scale of insulin. We'll continue with the rest of her medication regimen. Further recommendations to follow depending on the progress of the patient.
[2019-02-07] MEDS ORDERED: ACETAMINOPHEN TAB 325 MG TAB PO PRN (14:57)
--- NOTE | 2019-02-07 16:56 | P.PN ---
Subjective Progress Note Date: 02/07/19 this is a 73-year-old female with history of hypertension, diabetes, COPD was admitted to the hospital with increasing shortness of breath. Patient's echo Cardigan showed an ejection fraction of 35-40%. We going to add Aldactone 12.5 mg by mouth daily. Patient complains of being dizzy and weak. Her breathing has improved. er blood pressure is about 140/60. Pulse rate about 80. Oxygen saturation 96%.we'll continue current medical therapy but he had Aldactone Objective - Vital Signs Vital signs: Vital Signs Temp 97.5 F L 02/07/19 11:25 Pulse 78 02/07/19 16:35 Resp 20 02/07/19 11:25 BP 145/66 02/07/19 11:25 Pulse Ox 96 02/07/19 16:25 Intake & Output 02/06/19 02/07/19 02/07/19 18:59 06:59 18:59 Intake Total 240 480 600 Balance 240 480 600 Weight 84.5 kg 84 kg Intake: Oral 240 480 600 Other: # Voids 1 1 - Exam GENERAL EXAM: Patient is alert and oriented and doesn't appear to be in any acute distress HEENT: Normocephalic. Normal reaction of pupils, equal size, normal range of extraocular motion. No erythema or exudates in the throat. NECK: No masses, no nuchal rigidity. CHEST: No chest wall deformity. LUNGS: ew rales and wheezes HEART: [S1 and S2 normal with no audible mumurs or gallops. Regular rhythm, femorals equal on both sides..] ABDOMEN: No hepatosplenomegaly, normal bowel sounds, no guarding or rigidity. SKIN: No rashes CENTRAL NERVOUS SYSTEM: No focal deficits. EXTREMITIES: [No cyanosis, clubbing or edema.]ccept default's - Labs CBC & Chem 7: 02/06/19 07:16 02/06/19 07:16 Labs: Abnormal Lab Results - Last 24 Hours (Table) 02/06/19 02/06/19 02/07/19 Range/Units 07:16 21:03 06:37 POC Glucose (mg/dL) 175 H 148 H (75-99) mg/dL Hemoglobin A1c 6.5 H (4.0-6.0) % 02/07/19 Range/Units 12:04 POC Glucose (mg/dL) 161 H (75-99) mg/dL Hemoglobin A1c (4.0-6.0) % Assessment and Plan (1) Cardiomyopathy Current Visit: Yes Status: Acute Code(s): I42.9 - CARDIOMYOPATHY, UNSPECIFIED SNOMED Code(s): 71606967 (2) New onset of congestive heart failure Current Visit: Yes Status: Acute Code(s): I50.9 - HEART FAILURE, UNSPECIFIED SNOMED Code(s): 24057425 (3) Elevated troponin Current Visit: Yes Status: Acute Code(s): R74.8 - ABNORMAL LEVELS OF OTHER SERUM ENZYMES SNOMED Code(s): 585037699 Plan: continue current medical therapy, add Aldactone. Follow electrolytes closely
[2019-02-07 17:02] LABS: Glucose,Whole Blood 141 mg/dL (75-99)
[2019-02-07 20:02] LABS: Glucose,Whole Blood 196 mg/dL (75-99)
[2019-02-07] MEDS: MELATONIN 3 MG TABLET PO SCH (20:15)
[2019-02-07] MEDS: ENOXAPARIN 40 MG/0.4 ML SYRINGE SQ SCH (23:27)
[2019-02-08 06:16] LABS: Glucose,Whole Blood 146 mg/dL (75-99)
[2019-02-08] MEDS: PANTOPRAZOLE 40 MG TABLET PO SCH (06:30)
[2019-02-08] MEDS: INSULIN ASPART (NovoLOG) 100 UNIT/ML VIAL SQ SCH ×4 (06:30→21:27)
[2019-02-08] MEDS: LEVOTHYROXINE 100 MCG TAB PO SCH (06:30)
[2019-02-08 06:41] LABS: Anisocytosis Slight; Basophils # (A) 0.1 k/uL (0-0.2); Basophils % (A) 1 %; Eosinophils # (A) 0.2 k/uL (0-0.7); Eosinophils % (A) 3 %; HCT 32.8 % (34.0-46.0); HGB 9.9 gm/dL (11.4-16.0); Hypochromasia Marked; Lymphocytes # (A) 2.3 k/uL (1.0-4.8); Lymphocytes % (A) 29 %; MCH 27.3 pg (25.0-35.0); MCHC 30.3 g/dL (31.0-37.0); MCV 90.2 fL (80.0-100.0); Mean Platelet Volume 7.6; Monocytes # (A) 0.6 k/uL (0-1.0); Monocytes % (A) 7 %; Neutrophils # (A) 4.6 k/uL (1.3-7.7); Neutrophils % (A) 59 %; Platelet Count 230 k/uL (150-450); Poikilocytosis Slight; RBC 3.64 m/uL (3.80-5.40); RDW 16.7 % (11.5-15.5); WBC 7.9 k/uL (3.8-10.6)
[2019-02-08 07:00] LABS: Calcium 9.3 mg/dL (8.4-10.2); Potassium 3.5 mmol/L (3.5-5.1)
[2019-02-08] MEDS: IPRATROPIUM-ALBUTEROL 3 ML NEB INHALATION SCH ×4 (07:18→20:56)
[2019-02-08] MEDS: BISOPROLOL-HCTZ 5-6.25 MG 1 EACH TAB PO SCH (10:26)
[2019-02-08] MEDS: DOXYCYCLINE 100 MG CAP PO SCH ×2 (10:26→21:27)
[2019-02-08] MEDS: ASCORBIC ACID 500 MG TAB PO SCH (10:27)
[2019-02-08] MEDS: ATORVASTATIN 40 MG TAB PO SCH (10:27)
[2019-02-08] MEDS: LISINOPRIL 10 MG TAB PO SCH (10:27)
[2019-02-08] MEDS: LINAGLIPTIN 5 MG TABLET PO SCH (10:27)
[2019-02-08] MEDS: EZETIMIBE 10 MG TAB PO SCH (10:27)
[2019-02-08] MEDS: SPIRONOLACTONE 25 MG TAB PO SCH (10:27)
[2019-02-08] MEDS: CYANOCOBALAMIN 500 MCG TAB PO SCH (10:27)
[2019-02-08] MEDS: VENLAFAXINE HCL ER 75 MG CAP PO SCH (10:27)
[2019-02-08] MEDS: FUROSEMIDE 40 MG TAB PO SCH (10:27)
[2019-02-08 12:04] LABS: Glucose,Whole Blood 167 mg/dL (75-99)
--- NOTE | 2019-02-08 13:55 | P.PN ---
Subjective This is a pleasant 73-year-old female who was found to have acute systolic heart failure with ejection fraction 35-40%. She is currently m aintained on atorvastatin 40 mg daily, that he attend milligrams daily, Lasix 40 mg by mouth daily, lisinopril 10 mg daily and Aldactone 12.5 mg daily. She is seen and examined resting comfortably in no acute distress. She denies symptoms of chest discomfort, shortness of breath, dizziness or palpitations. Blood pressure 123/59 heart rate 65 afebrile maintaining oxygen saturation on nasal cannula laboratory data reviewed, WBC 7.9, hemoglobin 9.9, platelets 230, sodium 137, potassium 3.5, creatinine 1.08. GENERAL: Well-appearing, well-nourished and in no acute distress. NECK: Supple without JVD or thyromegaly. LUNGS: Few scattered wheezes, no rales or rhonchi. Respiration equal and unlab ored. Diminished bilaterally. HEART: Regular rate and rhythm with systolic ejection murmur, no rubs or gallops. S1 and S2 heard. EXTREMITIES: Normal range of motion, no edema. No clubbing or cyanosis. Peripheral pulses intact. ASSESSMENT Acute systolic heart failure, EF 35-40% Tracheobronchitis Hypertension Dyslipidemia Diabetes mellitus Abnormal troponin, secondary to hypoxia PLAN Initiate on carvedilol 6.25 mg daily. Follow renal function in the morning. Nurse Practitioner note has been reviewed, I agree with a documented findings and plan of care. Patient was seen and examined. Objective - Vital Signs Vital signs: Vital Signs Temp 98.1 F 02/08/19 08:15 Pulse 72 02/08/19 11:48 Resp 18 02/08/19 08:15 BP 123/59 02/08/19 08:15 Pulse Ox 94 L 02/08/19 08:15 Intake & Output 02/07/19 02/08/19 02/08/19 18:59 06:59 18:59 Intake Total 840 360 Output Total 800 Balance 840 -800 360 Weight 84.4 kg Intake: Oral 840 360 Output: Urine 800 Other: # Voids 1 2 - Labs CBC & Chem 7: 02/08/19 05:53 02/08/19 05:53 Labs: Abnormal Lab Results - Last 24 Hours (Table) 02/07/19 02/07/19 02/08/19 Range/Units 17:00 20:01 05:53 RBC 3.64 L (3.80-5.40) m/uL Hgb 9.9 L (11.4-16.0) gm/dL Hct 32.8 L (34.0-46.0) % MCHC 30.3 L (31.0-37.0) g/dL RDW 16.7 H (11.5-15.5) % Carbon Dioxide (22-30) mmol/L BUN (7-17) mg/dL Creatinine (0.52-1.04) mg/dL Glucose (74-99) mg/dL POC Glucose (mg/dL) 141 H 196 H (75-99) mg/dL 02/08/19 02/08/19 02/08/19 Range/Units 05:53 06:14 12:02 RBC (3.80-5.40) m/uL Hgb (11.4-16.0) gm/dL Hct (34.0-46.0) % MCHC (31.0-37.0) g/dL RDW (11.5-15.5) % Carbon Dioxide 31 H (22-30) mmol/L BUN 23 H (7-17) mg/dL Creatinine 1.08 H (0.52-1.04) mg/dL Glucose 130 H (74-99) mg/dL POC Glucose (mg/dL) 146 H 167 H (75-99) mg/dL
[2019-02-08 17:00] LABS: Glucose,Whole Blood 163 mg/dL (75-99)
[2019-02-08] MEDS: CARVEDILOL 6.25 MG TAB PO SCH (17:39)
[2019-02-08 20:34] LABS: Glucose,Whole Blood 154 mg/dL (75-99)
[2019-02-08] MEDS: MELATONIN 3 MG TABLET PO SCH (21:27)
[2019-02-08] MEDS: ENOXAPARIN 40 MG/0.4 ML SYRINGE SQ SCH (23:53)
[2019-02-09 06:04] VITALS: RESP 18
[2019-02-09 06:38] LABS: Glucose,Whole Blood 144 mg/dL (75-99)
[2019-02-09] MEDS: INSULIN ASPART (NovoLOG) 100 UNIT/ML VIAL SQ SCH ×2 (06:52→12:34)
[2019-02-09] MEDS: LEVOTHYROXINE 100 MCG TAB PO SCH (06:53)
[2019-02-09] MEDS: CARVEDILOL 6.25 MG TAB PO SCH (06:53)
[2019-02-09] MEDS: PANTOPRAZOLE 40 MG TABLET PO SCH (07:01)
[2019-02-09 07:37] LABS: African American GFR (CKD) >90 (>60 ml/min/1.73 sqM); Anion Gap 7 mmol/L; Blood Urea Nitrogen 23 mg/dL (7-17); Calcium 9.2 mg/dL (8.4-10.2); Carbon Dioxide 31 mmol/L (22-30); Chloride 98 mmol/L (98-107); Glucose 125 mg/dL (74-99); Potassium 4.1 mmol/L (3.5-5.1); Sodium 136 mmol/L (137-145)
[2019-02-09] MEDS: IPRATROPIUM-ALBUTEROL 3 ML NEB INHALATION SCH ×2 (08:00→11:20)
[2019-02-09] MEDS: SPIRONOLACTONE 25 MG TAB PO SCH (09:02)
[2019-02-09] MEDS: DOXYCYCLINE 100 MG CAP PO SCH (09:02)
[2019-02-09] MEDS: CYANOCOBALAMIN 500 MCG TAB PO SCH (09:02)
[2019-02-09] MEDS: FUROSEMIDE 40 MG TAB PO SCH (09:03)
[2019-02-09] MEDS: ASCORBIC ACID 500 MG TAB PO SCH (09:03)
[2019-02-09] MEDS: VENLAFAXINE HCL ER 75 MG CAP PO SCH (09:03)
[2019-02-09] MEDS: LINAGLIPTIN 5 MG TABLET PO SCH (09:03)
[2019-02-09] MEDS: LISINOPRIL 10 MG TAB PO SCH (09:03)
[2019-02-09] MEDS: ATORVASTATIN 40 MG TAB PO SCH (09:03)
[2019-02-09 11:33] VITALS: TEMP 97.5
--- NOTE | 2019-02-09 12:06 | P.DS ---
Providers Date of admission: 02/05/19 13:17 Expected date of discharge: 02/09/19 Attending physician: Odin Boswell Consults: 02/05/19 12:37 Consult Physician Routine Consulting Provider: Yuri Tong Consult Reason/Comments: new onset CHF Do you want consulting provider notified?: Yes Primary care physician: Odin Boswell Hospital Course: 73-year-old female was admitted to the emergency room with complaints of difficulty breathing and chest pressure. Patient was evaluated with echo showing ejection fraction of 35-40% patient is stabilized. Patient has been cleared by cardiology for discharge home. Patient to follow-up with family Dr. Odin Boswell and cardiology Assessment Acute hypoxic respiratory failure secondary to tracheobronchitis 7 congestive heart failure systolic dysfunction ejection fraction 35-40% COPD Hypertension hyperlipidemia Diabetes type 2 Hypothyroidism Chronic nicotine dependence Plan Follow-up with family physician and cardiology Patient Condition at Discharge: Stable Plan - Discharge Summary Discharge Rx Participant: Yes New Discharge Prescriptions: New Spironolactone [Aldactone] 12.5 mg PO DAILY #30 tab Carvedilol [Coreg] 6.25 mg PO BID-W/MEALS #60 tab Ipratropium-Albuterol Nebulize [Duoneb 0.5 mg-3 mg/3 ml Soln] 3 ml INHALATION RT-QID #120 ampul.neb Furosemide [Lasix] 40 mg PO DAILY #30 tab Melatonin 3 mg PO HS tablet Acetaminophen Tab [Tylenol] 650 mg PO Q6HR PRN tab PRN Reason: Fever And/ Or Pain Doxycycline [Vibramycin] 100 mg PO BID #14 cap Continue Omeprazole [PriLOSEC] 20 mg PO DAILY Cyanocobalamin (Vitamin B-12) [Vitamin B-12] 1,000 mcg PO DAILY Selenium 200 mcg PO DAILY Ferrous Sulfate [Feosol] 1,300 mg PO DAILY Venlafaxine HCl [Effexor XR] 75 mg PO DAILY Atorvastatin [Lipitor] 40 mg PO DAILY Ascorbic Acid [Vitamin C] 1,000 mg PO DAILY sitaGLIPtin [Januvia] 100 mg PO DAILY metFORMIN HCL 1,000 mg PO DAILY Levothyroxine Sodium [Synthroid] 200 mcg PO DAILY Lisinopril [Zestril] 10 mg PO DAILY Ezetimibe [Zetia] 10 mg PO DAILY Glucosamine/Chondr Meyer A Sod [Osteo Bi-Flex Caplet] 1 tab PO DAILY Discontinued Bisoprol/Hydrochlorothiazide [Bisoprolol-Hctz 5-6.25 mg Tab] 1 tab PO DAILY Discharge Medication List Ascorbic Acid [Vitamin C] 1,000 mg PO DAILY 02/05/19 [History] Atorvastatin [Lipitor] 40 mg PO DAILY 02/05/19 [History] Cyanocobalamin (Vitamin B-12) [Vitamin B-12] 1,000 mcg PO DAILY 02/05/19 [History] Ezetimibe [Zetia] 10 mg PO DAILY 02/05/19 [History] Ferrous Sulfate [Feosol] 1,300 mg PO DAILY 02/05/19 [History] Glucosamine/Chondr Meyer A Sod [Osteo Bi-Flex Caplet] 1 tab PO DAILY 02/05/19 [History] Levothyroxine Sodium [Synthroid] 200 mcg PO DAILY 02/05/19 [History] Lisinopril [Zestril] 10 mg PO DAILY 02/05/19 [History] Omeprazole [PriLOSEC] 20 mg PO DAILY 02/05/19 [History] Selenium 200 mcg PO DAILY 02/05/19 [History] Venlafaxine HCl [Effexor XR] 75 mg PO DAILY 02/05/19 [History] metFORMIN HCL 1,000 mg PO DAILY 02/05/19 [History] sitaGLIPtin [Januvia] 100 mg PO DAILY 02/05/19 [History] Acetaminophen Tab [Tylenol] 650 mg PO Q6HR PRN tab 02/09/19 [Rx] Carvedilol [Coreg] 6.25 mg PO BID-W/MEALS #60 tab 02/09/19 [Rx] Doxycycline [Vibramycin] 100 mg PO BID #14 cap 02/09/19 [Rx] Furosemide [Lasix] 40 mg PO DAILY #30 tab 02/09/19 [Rx] Ipratropium-Albuterol Nebulize [Duoneb 0.5 mg-3 mg/3 ml Soln] 3 ml INHALATION RT-QID #120 ampul.neb 02/09/19 [Rx] Melatonin 3 mg PO HS tablet 02/09/19 [Rx] Spironolactone [Aldactone] 12.5 mg PO DAILY #30 tab 02/09/19 [Rx] Follow up Appointment(s)/Referral(s): Odin Boswell MD [Primary Care Provider] - 1-2 days Damián Campos MD [STAFF PHYSICIAN] - 2 Weeks
[2019-02-09 12:15] LABS: Glucose,Whole Blood 150 mg/dL (75-99)
[2019-02-09] MEDS: EZETIMIBE 10 MG TAB PO SCH (12:34)
[2019-02-09 14:16] VITALS: PULSE 72
[2019-02-09 14:51] VITALS: BP 150/65
--- NOTE | 2019-02-09 16:36 | P.PN ---
Subjective Progress Note Date: 02/09/19 This is a pleasant 73-year-old female with history of diabetes, hypertension, hyperlipidemia, nicotine dependence for 50 years, hypothyroidism, who presents to the hospital with symptoms of progressively worsening shortness of breath over a 2 week duration. Patient states approximately one week ago the weather was extremely hot and humid and she felt awful, since then her breathing is been getting progressively worse. She denies any PND or orthopnea. She does have a productive coarse cough. Asked x-ray on presentation here shows congestive heart failure exacerbation with mild to moderate interstitial edema bilaterally. CTA of the chest did not reveal any acute pulmonary embolism, sm all to moderate right and minimal left-sided pleural effusion with atelectasis. Scattered areas of pneumonitis and density within the lung dove. KG shows a sinus tachycardia with nonspecific ST-T wave changes. Venous duplex study of the bilateral lower extremities was performed which was negative for DVT. I pressure on arrival here 165/74 with a heart rate of 108, 80% on room air, 97.3 temperature. I pressure this morning 147/68 with a heart rate of 90, 93% on 5 L of oxygen. Blood cell count 9.2, hemoglobin 11, platelet count 306. D-dimer 1.7, sodium 141, potassium 3.9, BUN 12, creatinine 0.7. BNP level 19,500. Magnesium 1.6. Troponin 0.0-2, 0.033, 0.041. At the time of my examination this morning, patient still appears to be short of breath, continues to have coarse cough. 02/09/2019 Patient was seen and examined this morning, she is overall feeling better and states her breathing is improving, she still continues to have a congested wheezy cough that seems to improve after breathing treatment. Blood pressure this morning 150/60 with a heart rate in the 70s. Sodium 136, potassium 4.1, BUN 23 and creatinine 0.7. Objective - Vital Signs Vital signs: Vital Signs Temp 97.5 F L 02/09/19 08:00 Pulse 72 02/09/19 14:12 Resp 18 02/09/19 04:00 BP 150/65 02/09/19 12:00 Pulse Ox 92 L 02/09/19 14:12 Intake & Output 02/08/19 02/09/19 02/09/19 18:59 06:59 18:59 Intake Total 1185 720 Balance 1185 720 Weight 84.7 kg Intake: Oral 1185 720 Other: # Voids 1 3 2 - Exam PHYSICAL EXAMINATION: GENERAL: 73-year-old female in no acute distress at the time of my examination HEENT: Head is atraumatic, normocephalic. Pupils equal, round. Sclera anicteric. Conjunctiva are clear. Mucous membranes of the mouth are moist. Neck is supple. There is elevated jugular venous pressure. No carotid bruit is heard. HEART EXAMINATION: Heart S1 1 S2, tachycardic, systolic murmur heard CHEST EXAMINATION: Lungs reveal scattered wheezing throughout with diminished air entry to the bases ABDOMEN: Soft, nontender. Bowel sounds are heard. No organomegaly noted. EXTREMITIES: 2+ peripheral pulses with 1+ evidence of peripheral edema and no calf tenderness noted. NEUROLOGIC patient is awake, alert and oriented 3 - Labs CBC & Chem 7: 02/08/19 05:53 02/09/19 07:02 Labs: Abnormal Lab Results - Last 24 Hours (Table) 02/08/19 02/08/19 02/09/19 Range/Units 16:56 20:33 06:32 Sodium (137-145) mmol/L Carbon Dioxide (22-30) mmol/L BUN (7-17) mg/dL Glucose (74-99) mg/dL POC Glucose (mg/dL) 163 H 154 H 144 H (75-99) mg/dL 02/09/19 02/09/19 Range/Units 07:02 11:54 Sodium 136 L (137-145) mmol/L Carbon Dioxide 31 H (22-30) mmol/L BUN 23 H (7-17) mg/dL Glucose 125 H (74-99) mg/dL POC Glucose (mg/dL) 150 H (75-99) mg/dL Assessment and Plan Plan: Assessment and plan #1 congestive cardiac failure, LV function unknown #2 acute tracheobronchitis #3 hypertension #4 diabetes #5 hyperlipidemia #6 50 year smoking history #7 hypothyroidism #8 abnormality in troponin, secondary to hypoxia, cannot completely rule out underlying coronary artery disease in this 73-year-old female with multiple risk factors. Plan From cardiology's perspective, patient may be able to be discharged once cleared by primary, we'll make her a follow-up appointment in the office post discharge. DNP note has been reviewed, I agree with a documented findings and plan of care. Patient was seen and examined.
== END 2019-02-09 15:33 | disposition home or self-care (01) | DRG 291 ==
LOC: EC 10:02 → 3SCARD 13:17 → 3NMEDONC 18:03 → 3SCARD 18:06
PROVIDERS: ADMIT Family Medicine; ATTEND Family Medicine
DX: I11.0 Hypertensive heart disease with heart failure (principal); I50.21 Acute systolic (congestive) heart failure; J18.9 Pneumonia, unspecified organism; J96.01 Acute respiratory failure with hypoxia; J44.0 Chronic obstructive pulmonary disease with (acute) lower respiratory infection; J44.1 Chronic obstructive pulmonary disease with (acute) exacerbation; I42.9 Cardiomyopathy, unspecified; J20.9 Acute bronchitis, unspecified; E11.9 Type 2 diabetes mellitus without complications; E03.9 Hypothyroidism, unspecified; E78.5 Hyperlipidemia, unspecified; F17.210 Nicotine dependence, cigarettes, uncomplicated; Z71.6 Tobacco abuse counseling; Z79.890 Hormone replacement therapy; Z79.84 Long term (current) use of oral hypoglycemic drugs; Z79.899 Other long term (current) drug therapy; Z87.01 Personal history of pneumonia (recurrent); Z90.49 Acquired absence of other specified parts of digestive tract; Z98.51 Tubal ligation status; Z82.49 Family history of ischemic heart disease and other diseases of the circulatory system
CPT/HCPCS: 36415; 71045; 71275; 80048; 80053; 83036; 83735; 83880; 84443; 84484; 85025; 85027; 85379; 85610; 85730; 93005; 93306; 93970; 94640; 94760; 96374; 96375; 99285

== ENCOUNTER 2019-03-16 13:43 | Emergency (ER) | payer MEDICARE ==
[2019-03-16 15:07] VITALS: BP 146/84; PULSE 94; RESP 20; TEMP 97.3
== END 2019-03-16 17:09 | disposition left against medical advice (07) ==
LOC: EC 13:43
DX: R53.1 Weakness (principal); R11.10 Vomiting, unspecified; R42 Dizziness and giddiness; Z53.21 Procedure and treatment not carried out due to patient leaving prior to being seen by health care provider
CPT/HCPCS: 93005; 99499

== ENCOUNTER 2019-06-09 20:03 | Inpatient (IN) | payer MEDICARE ==
[2019-06-09] MEDS ORDERED: SODIUM CHLORIDE 0.9% 1,000 ML IV STA (20:15)
[2019-06-09 20:21] LABS: Glucose,Whole Blood 122 mg/dL (75-99)
--- NOTE | 2019-06-09 20:28 | ED ---
Altered Mental Status HPI - General Chief Complaint: Altered Mental Status Stated Complaint: stroke Time Seen by Provider: 06/09/19 20:15 Source: patient, family, RN notes reviewed, old records reviewed Mode of arrival: wheelchair Limitations: altered mental status - History of Present Illness Initial Comments: This is a 74-year-old female she presents today for evaluation of being found down altered mental status and slurred speech. Patient's brought in by family with altered his condition is significantly 3-4 hours ago. Unknown symptoms actually started. Patient originally was found by family physician heard a thud as patient was walking. Patient herself is denying any real specific complaints no headache chest pain shortness breath or abdominal pain. Patient's poor strain history obtained by family, family states patient has had similar episodes like this in the past no known history of stroke. She is appeared to be confused for the past day. Family states that she is more confused more delirious than normal and not acting appropriate activities MD Complaint: altered mental status, confusion, weakness -: hour(s) Severity: mild Consistency of Symptoms: waxing and waning Context: history of similar presentation, diabetes, COPD Associated Symptoms: nausea/vomiting, weakness - Related Data Home Medications Medication Instructions Recorded Confirmed Ascorbic Acid [Vitamin C] 1,000 mg PO DAILY 02/05/19 02/05/19 Atorvastatin [Lipitor] 40 mg PO DAILY 02/05/19 02/05/19 Cyanocobalamin (Vitamin B-12) 1,000 mcg PO DAILY 02/05/19 02/05/19 [Vitamin B-12] Ezetimibe [Zetia] 10 mg PO DAILY 02/05/19 02/05/19 Ferrous Sulfate [Feosol] 1,300 mg PO DAILY 02/05/19 02/05/19 Glucosamine/Chondr Meyer A Sod [Osteo 1 tab PO DAILY 02/05/19 02/05/19 Bi-Flex Caplet] Levothyroxine Sodium [Synthroid] 200 mcg PO DAILY 02/05/19 02/05/19 Lisinopril [Zestril] 10 mg PO DAILY 02/05/19 02/05/19 Omeprazole [PriLOSEC] 20 mg PO DAILY 02/05/19 02/05/19 Selenium 200 mcg PO DAILY 02/05/19 02/05/19 Venlafaxine HCl [Effexor XR] 75 mg PO DAILY 02/05/19 02/05/19 metFORMIN HCL 1,000 mg PO DAILY 02/05/19 02/05/19 sitaGLIPtin [Januvia] 100 mg PO DAILY 02/05/19 02/05/19 Previous Rx's Medication Instructions Recorded Acetaminophen Tab [Tylenol] 650 mg PO Q6HR PRN tab 02/09/19 Carvedilol [Coreg] 6.25 mg PO BID-W/MEALS #60 tab 02/09/19 Doxycycline [Vibramycin] 100 mg PO BID #14 cap 02/09/19 Furosemide [Lasix] 40 mg PO DAILY #30 tab 02/09/19 Ipratropium-Albuterol Nebulize 3 ml INHALATION RT-QID #120 02/09/19 [Duoneb 0.5 mg-3 mg/3 ml Soln] ampul.neb Melatonin 3 mg PO HS tablet 02/09/19 Spironolactone [Aldactone] 12.5 mg PO DAILY #30 tab 02/09/19 Allergies Allergy/AdvReac Type Severity Reaction Status Date / Time No Known Allergies Allergy Verified 06/09/19 20:11 Review of Systems ROS Statement: Those systems with pertinent positive or pertinent negative responses have been documented in the HPI. ROS Other: All systems not noted in ROS Statement are negative. Past Medical History Past Medical History: COPD, Diabetes Mellitus, Hyperlipidemia, Hypertension, Pneumonia, Thyroid Disorder Additional Past Medical History / Comment(s): NIDDM type II, bronchitis, hypothyroid, anemia with . History of Any Multi-Drug Resistant Organisms: None Reported Past Surgical History: Cholecystectomy, Tonsillectomy, Tubal Ligation Past Anesthesia/Blood Transfusion Reactions: No Reported Reaction, Motion Sickness Past Psychological History: Depression Smoking Status: Current every day smoker Past Alcohol Use History: None Reported Past Drug Use History: None Reported - Past Family History Father Family Medical History: No Reported History Additional Family Medical History / Comment(s): Father lived into his 80s Mother Family Medical History: Myocardial Infarction (MS) Additional Family Medical History / Comment(s): Mother at the age of 56yrs pt believes was from a MS General Exam - General Exam Comments Initial Comments: No focal neurological deficit is noted Limitations: altered mental status General appearance: alert, in no apparent distress Head exam: Present: atraumatic, normocephalic, normal inspection Eye exam: Present: normal appearance, PERRL, EOMI. Absent: scleral icterus, conjunctival injection, periorbital swelling ENT exam: Present: normal exam, mucous membranes moist Neck exam: Present: normal inspection. Absent: tenderness, meningismus, lymphadenopathy Respiratory exam: Present: normal lung sounds bilaterally. Absent: respiratory distress, wheezes, rales, rhonchi, stridor Cardiovascular Exam: Present: regular rate, normal rhythm, normal heart sounds. Absent: systolic murmur, diastolic murmur, rubs, gallop, clicks GI/Abdominal exam: Present: soft, normal bowel sounds. Absent: distended, tenderness, guarding, rebound, rigid Extremities exam: Present: normal inspection, full ROM, normal capillary refill. Absent: tenderness, pedal edema, joint swelling, calf tenderness Back exam: Present: normal inspection Neurological exam: Present: alert, oriented X3, CN II-XII intact Psychiatric exam: Present: normal affect, normal mood Skin exam: Present: warm, dry, intact, normal color. Absent: rash Course Vital Signs 06/09/19 06/09/19 06/09/19 20:08 20:30 21:30 Temperature 97.9 F Pulse Rate 88 100 104 H Respiratory 18 22 27 H Rate Blood Pressure 145/76 174/71 159/64 O2 Sat by Pulse 93 L 91 L Oximetry - Reevaluation(s) Reevaluation #1: 06/09/19 22:29 Record is reviewed Reevaluation #2: 06/09/19 22:29 Focused family regarding symptoms to do believe she is improving, coming around a little bit but still mildly delirious - Consultations Consultation #1: Social with Dr. Boswell who is okay for admission Medical Decision Making - Medical Decision Making 74 female the ER for evaluation patient resents today for evaluation regards to altered mental status found down on no neurological complaints. Patient is no focal neurological deficit found. CT CTa brain had neck is negative. Patient be admitted for neurology evaluation also elevated troponin will receive continue troponin monitoring, evaluation by cardiology - Lab Data Result diagrams: 06/09/19 20:18 06/09/19 20:18 Lab Results 06/09/19 06/09/19 06/09/19 Range/Units 20:18 20:18 20:18 WBC 20.5 H (3.8-10.6) k/uL RBC 4.47 (3.80-5.40) m/uL Hgb 13.5 (11.4-16.0) gm/dL Hct 40.4 (34.0-46.0) % MCV 90.2 (80.0-100.0) fL MCH 30.1 (25.0-35.0) pg MCHC 33.3 (31.0-37.0) g/dL RDW 15.4 (11.5-15.5) % Plt Count 354 (150-450) k/uL Neutrophils % 84 % Lymphocytes % 9 % Monocytes % 6 % Eosinophils % 0 % Basophils % 1 % Neutrophils # 17.2 H (1.3-7.7) k/uL Lymphocytes # 1.8 (1.0-4.8) k/uL Monocytes # 1.2 H (0-1.0) k/uL Eosinophils # 0.1 (0-0.7) k/uL Basophils # 0.1 (0-0.2) k/uL PT 9.9 (9.0-12.0) sec INR 0.9 (<1.2) APTT 24.5 (22.0-30.0) sec Sodium 138 (137-145) mmol/L Potassium 4.4 (3.5-5.1) mmol/L Chloride 106 (98-107) mmol/L Carbon Dioxide 21 L (22-30) mmol/L Anion Gap 11 mmol/L BUN 19 H (7-17) mg/dL Creatinine 0.76 (0.52-1.04) mg/dL Est GFR (CKD-EPI)AfAm 90 (>60 ml/min/1.73 sqM) Est GFR (CKD-EPI)NonAf 78 (>60 ml/min/1.73 sqM) Glucose 126 H (74-99) mg/dL POC Glucose (mg/dL) (75-99) mg/dL POC Glu Lead Network Architect ID Calcium 10.0 (8.4-10.2) mg/dL Total Bilirubin 0.5 (0.2-1.3) mg/dL AST 35 (14-36) U/L ALT 23 (9-52) U/L Alkaline Phosphatase 73 (38-126) U/L Troponin I (0.000-0.034) ng/mL Total Protein 8.1 (6.3-8.2) g/dL Albumin 4.4 (3.5-5.0) g/dL 06/09/19 06/09/19 Range/Units 20:18 20:20 WBC (3.8-10.6) k/uL RBC (3.80-5.40) m/uL Hgb (11.4-16.0) gm/dL Hct (34.0-46.0) % MCV (80.0-100.0) fL MCH (25.0-35.0) pg MCHC (31.0-37.0) g/dL RDW (11.5-15.5) % Plt Count (150-450) k/uL Neutrophils % % Lymphocytes % % Monocytes % % Eosinophils % % Basophils % % Neutrophils # (1.3-7.7) k/uL Lymphocytes # (1.0-4.8) k/uL Monocytes # (0-1.0) k/uL Eosinophils # (0-0.7) k/uL Basophils # (0-0.2) k/uL PT (9.0-12.0) sec INR (<1.2) APTT (22.0-30.0) sec Sodium (137-145) mmol/L Potassium (3.5-5.1) mmol/L Chloride (98-107) mmol/L Carbon Dioxide (22-30) mmol/L Anion Gap mmol/L BUN (7-17) mg/dL Creatinine (0.52-1.04) mg/dL Est GFR (CKD-EPI)AfAm (>60 ml/min/1.73 sqM) Est GFR (CKD-EPI)NonAf (>60 ml/min/1.73 sqM) Glucose (74-99) mg/dL POC Glucose (mg/dL) 122 H (75-99) mg/dL POC Glu Lead Network Architect ID Estonian, Emani Calcium (8.4-10.2) mg/dL Total Bilirubin (0.2-1.3) mg/dL AST (14-36) U/L ALT (9-52) U/L Alkaline Phosphatase (38-126) U/L Troponin I 0.115 H* (0.000-0.034) ng/mL Total Protein (6.3-8.2) g/dL Albumin (3.5-5.0) g/dL - EKG Data -: EKG Interpreted by Me (EKG shows sinus tachycardia rate of 106, [place] 162, QRS 86, QTc 472) - Radiology Data Radiology results: report reviewed (CT brain CTA had not chest x-rays negative for acute disease), image reviewed Critical Care Time Critical Care Time: Yes Total Critical Care Time: 31 Disposition Clinical Impression: Altered mental status, Shortness of breath, Cough, Weakness, NSTEMI (non-ST elevated myocardial infarction) Disposition: ADMITTED IP TO THIS [facility] Condition: Serious Is patient prescribed a controlled substance at d/c from ED?: No Referrals: Odin Boswell MD [Primary Care Provider] - 1-2 days
[2019-06-09 20:36] LABS: Basophils # (A) 0.1 k/uL (0-0.2); Basophils % (A) 1 %; Eosinophils # (A) 0.1 k/uL (0-0.7); Eosinophils % (A) 0 %; HCT 40.4 % (34.0-46.0); HGB 13.5 gm/dL (11.4-16.0); Lymphocytes # (A) 1.8 k/uL (1.0-4.8); Lymphocytes % (A) 9 %; MCH 30.1 pg (25.0-35.0); MCHC 33.3 g/dL (31.0-37.0); MCV 90.2 fL (80.0-100.0); Mean Platelet Volume 6.3; Monocytes # (A) 1.2 k/uL (0-1.0); Monocytes % (A) 6 %; Neutrophils # (A) 17.2 k/uL (1.3-7.7); Neutrophils % (A) 84 %; Platelet Count 354 k/uL (150-450); RBC 4.47 m/uL (3.80-5.40); RDW 15.4 % (11.5-15.5); WBC 20.5 k/uL (3.8-10.6)
[2019-06-09 20:45] LABS: INR 0.9 (<1.2); Partial Thromboplastin Time 24.5 sec (22.0-30.0); Prothrombin Time 9.9 sec (9.0-12.0)
[2019-06-09 20:48] LABS: Albumin 4.4 g/dL (3.5-5.0); Potassium 4.4 mmol/L (3.5-5.1); Total Bilirubin 0.5 mg/dL (0.2-1.3); Total Protein 8.1 g/dL (6.3-8.2)
--- NOTE | 2019-06-09 21:04 | CT ---
EXAMINATION TYPE: CT brain wo con for TPA DATE OF EXAM: 06/09/2019 COMPARISON: None HISTORY: Neuro deficits. CT DLP: 1089 mGycm Automated exposure control for dose reduction was used. FINDINGS: There is mild cerebral atrophy. There is no mass effect nor midline shift. There is no sign of intrac ranial hemorrhage. There is 2 x 1 cm area of hypodensity anterior right internal capsule. Calvarium i s intact. 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 MILD CHRONIC SMALL VESSEL ISCHEMIA. MILD ATROPHY . NO HEMORRHAGE.
--- NOTE | 2019-06-09 21:06 | XR ---
EXAMINATION TYPE: XR chest 2V DATE OF EXAM: 06/09/2019 COMPARISON: 02/05/2019 HISTORY: Altered mental status TECHNIQUE: Frontal and lateral views of the chest are obtained. FINDINGS: Heart is enlarged. There is coarsening of the lung markings. There is no heart failure. Th ere are chest leads. There is no definite pleural effusion. Thoracic aorta is atheromatous. IMPRESSION: Coarse lung markings. There is clearing of the heart failure compared to last exam.
--- NOTE | 2019-06-09 21:16 | CT ---
EXAMINATION TYPE: CT angio head neck DATE OF EXAM: 06/09/2019 HISTORY: Neuro deficits. COMPARISON: None CT DLP: 447.6 mGycm. Automated Exposure Control for Dose Reduction was Utilized. TECHNIQUE: CTA scan of the neck is performed with IV Contrast, patient injected with 65ml mL of Isov ue 370, axial images are obtained, coronal and sagittal reformatted images are reviewed. Three-D hadley nstructed images are created on an independent workstation and reviewed. FINDINGS: Thoracic aorta is atheromatous. There is normal branching pattern of the great vessels on the aortic arch. There is bilateral arterial flow in the subclavian arteries. There is arterial flow in both brayan tebral arteries. There is arterial flow in the vertebrobasilar artery system. There is arterial flow in the common internal and external carotid arteries bilaterally. There is payton que formation and approximate 50% stenosis at the origin left internal carotid artery. There is plaqu e formation at approximately 25% stenosis at the origin of the right internal carotid artery. There i s no evidence of carotid or vertebral artery aneurysm or dissection. There is arterial flow in the anterior middle and posterior cerebral arteries. There is no mass effec t. There is no evidence of intracranial aneurysm or neovascularity. I see no sign of hemodynamic sten osis. There is normal contrast opacification of the venous sinuses. IMPRESSION: Negative CT angiogram of the brain. Atherosclerotic plaque formation and approximate 50% stenosis origin of the left internal carotid art kita and 25% stenosis at the origin of the right internal carotid artery. Extensive atheromatous coleman e in the aortic arch.
[2019-06-09] MEDS ORDERED: NITROGLYCERIN SL TABS 0.4 MG TAB SUBLINGUAL PRN (22:25)
[2019-06-10 06:20] LABS: Glucose,Whole Blood 87 mg/dL (75-99)
[2019-06-10] MEDS: INSULIN ASPART (NovoLOG) 100 UNIT/ML VIAL SQ SCH ×4 (06:45→20:51)
[2019-06-10 08:25] LABS: Cholesterol 227 mg/dL (<200); HDL Cholesterol 36 mg/dL (40-60); LDL Cholesterol,Calculated 153 mg/dL (0-99); Triglycerides 191 mg/dL (<150)
--- NOTE | 2019-06-10 11:09 | P.HPIM ---
History of Present Illness 7-year-old female presented to emergency room after fall. Patient at that time was unable to speak unable to stand or sit. Was brought to the emergency room by EMS. Patient has a history of COPD with smoking history of 3 packs a day diabetes type 2 hypertension hyperlipidemia Review of Systems Constitutional: Reports fatigue, Reports weakness Respiratory: Reports cough Past Medical History Past Medical History: COPD, Diabetes Mellitus, Hyperlipidemia, Hypertension, Pneumonia, Thyroid Disorder Additional Past Medical History / Comment(s): NIDDM type II, bronchitis, hypothyroid, anemia with . History of Any Multi-Drug Resistant Organisms: None Reported Past Surgical History: Cholecystectomy, Tonsillectomy, Tubal Ligation Past Anesthesia/Blood Transfusion Reactions: No Reported Reaction, Motion Sickness Past Psychological History: Depression Additional Psychological History / Comment(s): Pt resides with her spouse. She uses no assistive device. She drives. She has a glucometer and a nebulizer. Smoking Status: Current every day smoker Past Alcohol Use History: None Reported Additional Past Alcohol Use History / Comment(s): Pt started smoking in 1964 and is a 3 ppd smoker. Past Drug Use History: None Reported - Past Family History Father Family Medical History: No Reported History Additional Family Medical History / Comment(s): Father lived into his 80s Mother Family Medical History: Myocardial Infarction ([place]) Additional Family Medical History / Comment(s): Mother at the age of 56yrs pt believes was from a [place] Medications and Allergies Home Medications Medication Instructions Recorded Confirmed Type RX: Levothyroxine Sodium 200 mcg PO DAILY 02/05/19 06/09/19 History [Synthroid] RX: Venlafaxine HCl [Effexor XR] 75 mg PO DAILY 02/05/19 06/09/19 History RX: metFORMIN HCL 1,000 mg PO BID 02/05/19 06/09/19 History RX: sitaGLIPtin [Januvia] 100 mg PO DAILY 02/05/19 06/09/19 History Bisoprolol/Hydrochlorothiazide 1 tab PO DAILY 06/09/19 06/09/19 History [Bisoprolol-Hctz 5-6.25 mg Tab] Empagliflozin [Jardiance] 25 mg PO DAILY 06/09/19 06/09/19 History Penicillin V Potassium [Pen Vee K] 500 mg PO QID 06/09/19 06/09/19 History Albuterol Sulfate [Ventolin HFA] 1 - 2 puff INHALATION RT-Q4H PRN 06/10/19 06/10/19 History Docusate [Colace] 100 mg PO BID 06/10/19 06/10/19 History RX: Spironolactone [Aldactone] 25 mg PO DAILY 06/10/19 06/10/19 History Allergies Allergy/AdvReac Type Severity Reaction Status Date / Time No Known Allergies Allergy Verified 06/09/19 22:35 Physical Exam Vitals: Vital Signs Temp Pulse Pulse Resp BP BP Pulse Ox 06/10/19 09:27 97.9 F 106 H 20 130/70 94 L 06/10/19 08:00 97.9 F 106 H 20 130/70 94 L 06/10/19 04:00 98.2 F 86 20 138/65 93 L 06/10/19 00:00 97.5 F L 89 20 150/66 94 L 06/09/19 23:00 85 20 117/50 06/09/19 22:30 95 20 137/61 06/09/19 22:00 105 H 20 160/68 06/09/19 21:30 104 H 27 H 159/64 91 L 06/09/19 20:30 100 22 174/71 06/09/19 20:08 97.9 F 88 18 145/76 93 L Intake and Output 06/09/19 06/10/19 06/10/19 22:59 06:59 14:59 Other: Voiding Method Diaper Incontinent # Voids 1 # Bowel Movements 1 1 Weight 72.575 kg 74.2 kg - Constitutional General appearance: mild distress - EENT Facial drooping Eyes: PERRLA Ears: bilateral: normal - Neck Neck: normal ROM - Respiratory Respiratory: bilateral: rhonchi - Cardiovascular Rhythm: regular Abnormal Heart Sounds: systolic murmur - Gastrointestinal General gastrointestinal: normal bowel sounds, soft - Integumentary Integumentary: normal - Neurologic Facial drooping - Musculoskeletal Drift right arm Musculoskeletal: generalized weakness, right sided weakness - Psychiatric Awake and alert decided to time Results CBC & Chem 7: 06/09/19 20:18 06/09/19 20:18 Labs: Abnormal Lab Results - Last 24 Hours (Table) 06/09/19 06/09/19 06/09/19 Range/Units 20:18 20:18 20:18 WBC 20.5 H (3.8-10.6) k/uL Neutrophils # 17.2 H (1.3-7.7) k/uL Monocytes # 1.2 H (0-1.0) k/uL Carbon Dioxide 21 L (22-30) mmol/L BUN 19 H (7-17) mg/dL Glucose 126 H (74-99) mg/dL POC Glucose (mg/dL) (75-99) mg/dL Creatine Kinase (30-135) U/L Troponin I 0.115 H* (0.000-0.034) ng/mL Triglycerides (<150) mg/dL Cholesterol (<200) mg/dL LDL Cholesterol, Calc (0-99) mg/dL HDL Cholesterol (40-60) mg/dL 06/09/19 06/09/19 06/10/19 Range/Units 20:18 20:20 02:08 WBC (3.8-10.6) k/uL Neutrophils # (1.3-7.7) k/uL Monocytes # (0-1.0) k/uL Carbon Dioxide (22-30) mmol/L BUN (7-17) mg/dL Glucose (74-99) mg/dL POC Glucose (mg/dL) 122 H (75-99) mg/dL Creatine Kinase 169 H (30-135) U/L Troponin I 0.144 H* (0.000-0.034) ng/mL Triglycerides (<150) mg/dL Cholesterol (<200) mg/dL LDL Cholesterol, Calc (0-99) mg/dL HDL Cholesterol (40-60) mg/dL 06/10/19 06/10/19 Range/Units 07:47 07:47 WBC (3.8-10.6) k/uL Neutrophils # (1.3-7.7) k/uL Monocytes # (0-1.0) k/uL Carbon Dioxide (22-30) mmol/L BUN (7-17) mg/dL Glucose (74-99) mg/dL POC Glucose (mg/dL) (75-99) mg/dL Creatine Kinase (30-135) U/L Troponin I 0.130 H* (0.000-0.034) ng/mL Triglycerides 191 H (<150) mg/dL Cholesterol 227 H (<200) mg/dL LDL Cholesterol, Calc 153 H (0-99) mg/dL HDL Cholesterol 36 L (40-60) mg/dL Abdominal x-ray: report reviewed CT Scan - head: report reviewed Thrombosis Risk Factor Assmnt - Choose All That Apply Each Factor Represents 1 point: Medical pt on bed rest, Obesity (BMI >25) Each Risk Factor Represents 2 Points: Age 61-74 years Thrombosis Risk Factor Assessment Total Risk Factor Score: 4 Thrombosis Risk Factor Assessment Level: Moderate Risk Assessment and Plan Plan: Assessment Acute CVA Elevated troponin non-STEMI MA needs to be ruled out COPD Nicotine use 3 packs a day Diabetes type 2 Hypertension Hyperlipidemia Hypothyroidism Weakness Plan Continue consultation with neurology Consultation with cardiology regarding possible [place] Swallow study ordered
[2019-06-10] MEDS: METOPROLOL TARTRATE 25 MG TAB PO SCH ×2 (11:10→21:10)
[2019-06-10] MEDS: ATORVASTATIN 80 MG TAB PO SCH (11:10)
--- NOTE | 2019-06-10 11:16 | P.CRDCN ---
History of Present Illness Consult date: 06/10/19 Chief complaint: Change in mental status History of present illness: This is a very pleasant 74-year-old female patient with a past medical history significant for smoking, chronic obstructive pulmonary disease, diabetes, hypertension, dyslipidemia, was brought to the emergency room by her family after she was found on the floor, falling from the bed, unresponsive. The patient is somewhat poor historian and the history was taken from her daughter who was bit side. The patient was in her usual state of health until yesterday when her was downstairs and he heard a noise when he went to check on her upstairs and found the patient on the floor unresponsive and confused. At that point the patient was brought to the emergency room. She underwent a CTA of the head and that showed mild to moderate atherosclerosis disease involving the carotid arteries bilaterally. The computed tomography scan of the head showed old infarct without any acute infarction. We involved in the care of the patient because her troponin was checked and came to be slightly abnormal but it seems to be flat across the board. The EKG showed sinus tachycardia. The rest of the blood work came in to be unremarkable. The patient denies any symptoms of chest pain or chest discomfort, shortness of breath, dizziness, or heart racing or fluttering. On examination she does have a very prominent systolic murmur at the right upper sternal border. Currently the patient has also some swallow issues. The patient was admitted to the hospital back in February 2019 with increasing in the shortness of breath and at that point she was diagnosed was congestive heart failure exacerbation. An echocardiogram was performed at that point and revealed cardiomyopathy with EF around 35-40%. At that point the patient was treated medically and was dis charged in stable medical condition Past Medical History Past Medical History: COPD, Diabetes Mellitus, Hyperlipidemia, Hypertension, Pneumonia, Thyroid Disorder Additional Past Medical History / Comment(s): NIDDM type II, bronchitis, hypothyroid, anemia with . History of Any Multi-Drug Resistant Organisms: None Reported Past Surgical History: Cholecystectomy, Tonsillectomy, Tubal Ligation Past Anesthesia/Blood Transfusion Reactions: No Reported Reaction, Motion Sickness Past Psychological History: Depression Additional Psychological History / Comment(s): Pt resides with her spouse. She uses no assistive device. She drives. She has a glucometer and a nebulizer. Smoking Status: Current every day smoker Past Alcohol Use History: None Reported Additional Past Alcohol Use History / Comment(s): Pt started smoking in 1964 and is a 3 ppd smoker. Past Drug Use History: None Reported - Past Family History Father Family Medical History: No Reported History Additional Family Medical History / Comment(s): Father lived into his 80s Mother Family Medical History: Myocardial Infarction ([place]) Additional Family Medical History / Comment(s): Mother at the age of 56yrs pt believes was from a [place] Medications and Allergies Home Medications Medication Instructions Recorded Confirmed Type Levothyroxine Sodium [Synthroid] 200 mcg PO DAILY 02/05/19 06/09/19 History Venlafaxine HCl [Effexor XR] 75 mg PO DAILY 02/05/19 06/09/19 History metFORMIN HCL 1,000 mg PO BID 02/05/19 06/09/19 History sitaGLIPtin [Januvia] 100 mg PO DAILY 02/05/19 06/09/19 History Bisoprolol/Hydrochlorothiazide 1 tab PO DAILY 06/09/19 06/09/19 History [Bisoprolol-Hctz 5-6.25 mg Tab] Empagliflozin [Jardiance] 25 mg PO DAILY 06/09/19 06/09/19 History Penicillin V Potassium [Pen Vee K] 500 mg PO QID 06/09/19 06/09/19 History Albuterol Sulfate [Ventolin HFA] 1 - 2 puff INHALATION RT-Q4H PRN 06/10/19 06/10/19 History Docusate [Colace] 100 mg PO BID 06/10/19 06/10/19 History Spironolactone [Aldactone] 25 mg PO DAILY 06/10/19 06/10/19 History Allergies Allergy/AdvReac Type Severity Reaction Status Date / Time No Known Allergies Allergy Verified 06/09/19 22:35 Physical Exam Vitals: Vital Signs Temp Pulse Pulse Resp BP BP Pulse Ox 06/10/19 09:27 97.9 F 106 H 20 130/70 94 L 06/10/19 08:00 97.9 F 106 H 20 130/70 94 L 06/10/19 04:00 98.2 F 86 20 138/65 93 L 06/10/19 00:00 97.5 F L 89 20 150/66 94 L 06/09/19 23:00 85 20 117/50 06/09/19 22:30 95 20 137/61 06/09/19 22:00 105 H 20 160/68 06/09/19 21:30 104 H 27 H 159/64 91 L 06/09/19 20:30 100 22 174/71 06/09/19 20:08 97.9 F 88 18 145/76 93 L Intake and Output 06/09/19 06/10/19 06/10/19 22:59 06:59 14:59 Other: Voiding Method Diaper Incontinent # Voids 1 # Bowel Movements 1 1 Weight 72.575 kg 74.2 kg - Constitutional General appearance: no acute distress - Respiratory Respiratory: bilateral: CTA - Cardiovascular Rhythm: regular Heart sounds: normal: S1, S2 Abnormal Heart Sounds: systolic murmur Results 06/09/19 20:18 06/09/19 20:18 Cardiac Enzymes 06/09/19 06/09/19 06/10/19 Range/Units 20:18 20:18 02:08 AST 35 (14-36) U/L Troponin I 0.115 H* 0.144 H* (0.000-0.034) ng/mL 06/10/19 Range/Units 07:47 AST (14-36) U/L Troponin I 0.130 H* (0.000-0.034) ng/mL Coagulation 06/09/19 Range/Units 20:18 PT 9.9 (9.0-12.0) sec APTT 24.5 (22.0-30.0) sec Lipids 06/10/19 Range/Units 07:47 Triglycerides 191 H (<150) mg/dL Cholesterol 227 H (<200) mg/dL HDL Cholesterol 36 L (40-60) mg/dL CBC 06/09/19 Range/Units 20:18 WBC 20.5 H (3.8-10.6) k/uL RBC 4.47 (3.80-5.40) m/uL Hgb 13.5 (11.4-16.0) gm/dL Hct 40.4 (34.0-46.0) % Plt Count 354 (150-450) k/uL Comprehensive Metabolic Panel 06/09/19 Range/Units 20:18 Sodium 138 (137-145) mmol/L Potassium 4.4 (3.5-5.1) mmol/L Chloride 106 (98-107) mmol/L Carbon Dioxide 21 L (22-30) mmol/L BUN 19 H (7-17) mg/dL Creatinine 0.76 (0.52-1.04) mg/dL Glucose 126 H (74-99) mg/dL Calcium 10.0 (8.4-10.2) mg/dL AST 35 (14-36) U/L ALT 23 (9-52) U/L Alkaline Phosphatase 73 (38-126) U/L Total Protein 8.1 (6.3-8.2) g/dL Albumin 4.4 (3.5-5.0) g/dL Current Medications Generic Name Dose Route Start Last Admin Trade Name Freq PRN Reason Stop Dose Admin Atorvastatin Calcium 80 mg 06/10/19 09:00 06/10/19 11:10 Lipitor PO Not Given DAILY [facility] Ceftriaxone Sodium 1 gm/ 50 mls @ 100 mls/hr 06/10/19 21:00 Sodium Chloride IVPB Q24H [facility] Insulin Aspart 0 unit 06/10/19 07:30 06/10/19 06:45 Novolog SQ Not Given ACHS [facility] Protocol Metoprolol Tartrate 25 mg 06/10/19 09:00 06/10/19 11:10 Lopressor PO Not Given BID [facility] Nitroglycerin 0.4 mg 06/09/19 22:25 Nitrostat SUBLINGUAL Q5M PRN Chest Pain Intake and Output 06/09/19 06/10/19 06/10/19 22:59 06:59 14:59 Other: Voiding Method Diaper Incontinent # Voids 1 # Bowel Movements 1 1 Weight 72.575 kg 74.2 kg 06/09/19 20:18 06/09/19 20:18 Assessment and Plan Assessment: Assessment #1 change in mental status #2 possible stroke #3 mildly abnormal cardiac enzymes #4 sinus tachycardia #5 cardiomyopathy probably nonischemic Plan #1 I would advise a conservative medical approach, in the process of possible stroke #2 continue the current medical regimen #3 add aspirin to the current medical regimen #4 obtain an echocardiogram was Doppler #5 follow-up with the patient Thank you for allowing us participate in her care
--- NOTE | 2019-06-10 11:29 | P.CNNES ---
History of Present Illness Consult date: 06/10/19 Requesting physician: Allan Babb Reason for Consult: CVA History of Present Illness: Patient is a 74-year-old female with history of hypertension, diabetes, hyperlipidemia and tobacco use, who is otherwise in normal state of health, last night at 5:30 PM went upstairs to go to sleep at bed. She rolled over and fell out of bed. Patient at that time had lost control of bowels and bladder. She couldn't get up, and her tried to get her up and he could not. Her speech was very mumbling slurred speech. She could not stand, or even sit, and would fall backwards. She was weak in general. Patient was brought to the hospital and she arrived at 8:03 PM. Patient underwent computed tomography scan of the head, which revealed old lacunar infarct right anterior internal capsule, small vessel disease and mild atrophy. Chest x-ray showed coarse lung markings, clearing of heart failure compared to last exam. Patient had a CTA of head and neck, which revealed 50% stenosis of the origin of left ICA and 25% stenosis of the right ICA. Normal [place]. Atherosclerotic plaque formation. E xtensive atheromatous changes in the aortic arch. EKG shows sinus tachycardia with premature atrial complexes. Patient's blood test shows WBC 20.5 hemoglobin 13.5 platelets are normal 354. Chem-7 normal. Liver panel normal. Troponin 0.130. Total cholesterol is 227, LDL 153, HDL 36 and triglycerides were 91. TSH is normal. Hemoglobin A1c 5.9. Patient has history of hypertension, diabetes for the last 4-5 years, hyperlipidemia and hypothyroidism. She has smoked 2 packs per day for the last 54 years since 1964. Denies any alcohol. Patient states that she does take 2 full aspirins every day, although her home medication list does not mention about aspirin and patient's daughter was not aware that she was on aspirin regimen. Review of Systems As above in detail. Generalized weakness. Patient denies any loss of vision, diplopia, dysphagia, focal numbness tingling or focal weakness. She is generalized weak. Patient has shortness of breath, cough, phlegm. No chest pain. Denies abdominal pain. All other review of systems unremarkable. Patient does not have otherwise bladder or bowel issues. Past Medical History Past Medical History: COPD, Diabetes Mellitus, Hyperlipidemia, Hypertension, Pneumonia, Thyroid Disorder Additional Past Medical History / Comment(s): NIDDM type II, bronchitis, hypothyroid, anemia with . History of Any Multi-Drug Resistant Organisms: None Reported Past Surgical History: Cholecystectomy, Tonsillectomy, Tubal Ligation Past Anesthesia/Blood Transfusion Reactions: No Reported Reaction, Motion Sickness Past Psychological History: Depression Additional Psychological History / Comment(s): Pt resides with her spouse. She uses no assistive device. She drives. She has a glucometer and a nebulizer. Smoking Status: Current every day smoker Past Alcohol Use History: None Reported Additional Past Alcohol Use History / Comment(s): Pt started smoking in 1964 and is a 3 ppd smoker. Past Drug Use History: None Reported - Past Family History Father Family Medical History: No Reported History Additional Family Medical History / Comment(s): Father lived into his 80s Mother Family Medical History: Myocardial Infarction ([place]) Additional Family Medical History / Comment(s): Mother at the age of 56yrs pt believes was from a [place] Medications and Allergies Home Medications Medication Instructions Recorded Confirmed Type Levothyroxine Sodium [Synthroid] 200 mcg PO DAILY 02/05/19 06/09/19 History Venlafaxine HCl [Effexor XR] 75 mg PO DAILY 02/05/19 06/09/19 History metFORMIN HCL 1,000 mg PO BID 02/05/19 06/09/19 History sitaGLIPtin [Januvia] 100 mg PO DAILY 02/05/19 06/09/19 History Bisoprolol/Hydrochlorothiazide 1 tab PO DAILY 06/09/19 06/09/19 History [Bisoprolol-Hctz 5-6.25 mg Tab] Empagliflozin [Jardiance] 25 mg PO DAILY 06/09/19 06/09/19 History Penicillin V Potassium [Pen Vee K] 500 mg PO QID 06/09/19 06/09/19 History Albuterol Sulfate [Ventolin HFA] 1 - 2 puff INHALATION RT-Q4H PRN 06/10/1905/23 History Docusate [Colace] 100 mg PO BID 06/10/19 06/10/19 History Spironolactone [Aldactone] 25 mg PO DAILY 06/10/19 06/10/19 History Allergies Allergy/AdvReac Type Severity Reaction Status Date / Time No Known Allergies Allergy Verified 06/09/19 22:35 Physical Examination - Vital Signs Vital Signs: Vital Signs Temp Pulse Pulse Resp BP BP Pulse Ox 06/10/19 09:27 97.9 F 106 H 20 130/70 94 L 06/10/19 08:00 97.9 F 106 H 20 130/70 94 L 06/10/19 04:00 98.2 F 86 20 138/65 93 L 06/10/19 00:00 97.5 F L 89 20 150/66 94 L 06/09/19 23:00 85 20 117/50 06/09/19 22:30 95 20 137/61 06/09/19 22:00 105 H 20 160/68 06/09/19 21:30 104 H 27 H 159/64 91 L 06/09/19 20:30 100 22 174/71 06/09/19 20:08 97.9 F 88 18 145/76 93 L Intake and Output 06/09/19 06/10/19 06/10/19 22:59 06:59 14:59 Other: Voiding Method Diaper Incontinent # Voids 1 # Bowel Movements 1 1 Weight 72.575 kg 74.2 kg On examination patient is an elderly female, in no acute distress. She is slightly somnolent, but did wake up at later part of the exam. Her speech is hoarse with mild slurring. No aphasia. Patient can name and repeat well. On cranial nerve examination pupils are round and reacting, visual dove are full on confrontation. Extra ocular muscles are intact with no nystagmus. Face is symmetric and tongue protrudes to the midline. Palatal elevation normal on muscle strength testing there is no pronator drift and the strength is normal in arms and legs. Reflexes are 1+ in the upper limbs, 2+ at both knees, 1 at the right ankle 2 on the left and plantars are downgoing bilaterally. Sensory touch is equal with no neglect on double simultaneous stimulation. Tone and bulk of muscles normal. No ataxia. Gait deferred. No obvious bruit S1 and S2 audible. No peripheral edema. Results - Laboratory Findings CBC and BMP: 06/09/19 20:18 06/09/19 20:18 Abnormal Lab Findings: Abnormal Labs 06/09/19 06/09/19 06/09/19 20:18 20:18 20:18 WBC 20.5 H Neutrophils # 17.2 H Monocytes # 1.2 H Carbon Dioxide 21 L BUN 19 H Glucose 126 H POC Glucose (mg/dL) Creatine Kinase Troponin I 0.115 H* Triglycerides Cholesterol LDL Cholesterol, Calc HDL Cholesterol 06/09/19 06/09/19 06/10/19 20:18 20:20 02:08 WBC Neutrophils # Monocytes # Carbon Dioxide BUN Glucose POC Glucose (mg/dL) 122 H Creatine Kinase 169 H Troponin I 0.144 H* Triglycerides Cholesterol LDL Cholesterol, Calc HDL Cholesterol 06/10/19 06/10/19 07:47 07:47 WBC Neutrophils # Monocytes # Carbon Dioxide BUN Glucose POC Glucose (mg/dL) Creatine Kinase Troponin I 0.130 H* Triglycerides 191 H Cholesterol 227 H LDL Cholesterol, Calc 153 H HDL Cholesterol 36 L Assessment and Plan Assessment: * 74-year-old female admitted with a fall off the bed, generalized weakness, slurred speech. Her current examination is relatively non-focal. Cannot localize based upon the examination. Rule out CVA versus arrhythmia/cardiac etiology. * CTA revealed left ICA stenosis 50%, and right 25%. * Elevated cardiac enzymes. * Diabetes, well controlled * Hyperlipidemia * Long-standing history of tobacco use, 2 pack per day for over 50 years. Plan: * We will check MRI of the brain to rule out stroke. * Patient will be started on Plavix 75 mg daily, if evidence of CVA. Patient states that she has been on aspirin regimen at home. * Cardiology is on board for elevated cardiac enzymes. * Continue statins. * Tobacco cessation recommended. * Discussed with patient's daughter in detail. * We will follow.
[2019-06-10 11:43] LABS: Glucose,Whole Blood 109 mg/dL (75-99)
--- NOTE | 2019-06-10 13:48 | FL ---
EXAMINATION TYPE: FL barium swallow w video DATE OF EXAM: 06/10/2019 MODIFIED SWALLOW / DEGLUTITION STUDY CLINICAL HISTORY: Dysphagia. TECHNIQUE: Deglutition study is performed utilizing thin liquid barium, honey and nectar thick liqui d barium, barium thick applesauce, and barium coated cracker. 2 minutes and 21 seconds of fluoroscopy time was utilized with 0 fluoroscopic images saved as the examination was video recorded. COMPARISON: None. FINDINGS: The oral and pharyngeal phases show satisfactory initiation and propagation with all modali ties tested. Normal mastication is seen with solid modalities tested. Gross aspiration is seen with the thin barium consistency. There is no evidence of penetration or aspiration with remaining consis tency. No significant pharyngeal residue was appreciated. IMPRESSION: Gross aspiration with the thin barium consistency. No aspiration or laryngeal penetratio n with any of the remaining consistencies. Please refer to speech therapist notes for further details if necessary.
--- NOTE | 2019-06-10 14:52 | MR ---
EXAMINATION TYPE: MR brain wo con DATE OF EXAM: 06/10/2019 COMPARISON: CT brain from yesterday. HISTORY: Acute onset neuro deficits on admission yesterday TECHNIQUE: Multiplanar, multisequence imaging of the brain and brainstem is performed without IV cont rast. FINDINGS: Diffusion weighted images demonstrate small subtle subcentimeter focus of T2 hyperintensity image 184 posterior right frontal lobe near parietal junction. Due to small size definitive change not seen on ADC mapping not well seen. There is no worrisome extra-axial fluid collection. Diffuse ventricular and sulcal prominence. Low at tenuation scattered throughout the superficial and deep white matter slightly more confluent in the p eriventricular white matter. There is more prominent confluent T2 hyperintensity in the brainstem keira tered in the ayaz axial image 10 for reference. Midline structures demonstrate normal morphology. The craniocervical junction appears within normal limits. Normal vascular flow voids are present. There is 6 mm mucous retention cyst or polyp in the r ight ethmoid sinus. Remainder sinuses are clear. Globes are intact bilaterally. IMPRESSION: 1. Suspect area of tiny acute lacunar infarction high right posterior frontal lobe near parietal junc tion. 2. Background [id number] diffuse cerebral atrophy and moderate to severe chronic small vessel i schemic changes. 3. More prominent subtle T2 hyperintensity diffusely involving the ayaz somewhat more than suspected for products of proximal vessel ischemic change. Low-grade neoplasm is in differential. Differential also include osmotic demyelination syndrome though pattern is atypical with more diffuse involvement. Other etiologies aren't excluded. Contrast-enhanced MRI may help in further evaluation.
[2019-06-10 17:19] LABS: Glucose,Whole Blood 98 mg/dL (75-99)
[2019-06-10 20:21] LABS: Glucose,Whole Blood 115 mg/dL (75-99)
[2019-06-10] MEDS: DOCUSATE 100 MG CAP PO SCH (21:10)
[2019-06-10] MEDS: metFORMIN 500 MG TAB PO SCH (21:16)
[2019-06-11 06:14] LABS: Glucose,Whole Blood 99 mg/dL (75-99)
[2019-06-11] MEDS: LEVOTHYROXINE 100 MCG TAB PO SCH (06:18)
[2019-06-11] MEDS: INSULIN ASPART (NovoLOG) 100 UNIT/ML VIAL SQ SCH ×4 (06:23→22:15)
--- NOTE | 2019-06-11 07:18 | ECHOF ---
Referral Reason:elevTrop MEASUREMENTS -------- HEIGHT: 170.2 cm WEIGHT: 73.9 kg BP: 138/65 RVIDd: 3.1 cm (< 3.3) IVSd: 1.4 cm (0.6 - 1.1) LVIDd: 3.9 cm (3.9 - 5.3) LVPWd: 1.5 cm (0.6 - 1.1) IVSs: 2.2 cm LVIDs: 2.9 cm LVPWs: 2.1 cm LA Diam: 4.1 cm (2.7 - 3.8) LAESV Index (A-L): 43.95 ml/m Ao Diam: 3.3 cm (2.0 - 3.7) AV Cusp: 1.4 cm (1.5 - 2.6) MV EXCURSION: 11.388 mm (> 18.000) MV EF SLOPE: 71 mm/s (70 - 150) EPSS: 0.9 cm MV E Lon: 1.26 m/s MV DecT: 325 ms MV A Lon: 1.89 m/s MV E/A Ratio: 0.67 AV maxP.27 mmHg AV meanP.82 mmHg AR PHT: 290 ms FINDINGS -------- Sinus rhythm. This was a technically good study. The left ventricular size is normal. There is moderate concentric left ventricular hypertrophy. O verall left ventricular systolic function is normal with, an EF between 60 - 65 %. The right ventricle is normal in size. LA is severely dilated >40 ml/m2 The right atrium is normal in size. Interatrial and interventricular septum intact. There is moderate aortic valve sclerosis. There is severe aortic regurgitation. There is moderate aortic stenosis present. Peak/mean gradient across the Aortic Valve is 53.27mmHg / 24.82mmHg. The mitral valve leaflets are moderate to severely thickened. Moderate mitral annular calcification present. Mild mitral regurgitation is present. The peak and mean MV gradients are 15.34mmHg 4.7 7mmHg as measured by doppler. Mild mitral stenosis. The tricuspid valve appears structurally normal. No regurgitation noted There is no pulmonic regurgitation present. The aortic root size is normal. Normal inferior vena cava with normal inspiratory collapse consistent with estimated right atrial pre ssure of 5 mmHg. There is no pericardial effusion. CONCLUSIONS -------- 1. Sinus rhythm. 2. This was a technically good study. 3. The left ventricular size is normal. 4. There is moderate concentric left ventricular hypertrophy. 5. Overall left ventricular systolic function is normal with, an EF between 60 - 65 %. 6. The right ventricle is normal in size. 7. LA is severely dilated >40 ml/m2 8. The right atrium is normal in size. 9. Interatrial and interventricular septum intact. 10. There is moderate aortic valve sclerosis. 11. There is severe aortic regurgitation. 12. There is moderate aortic stenosis present. 13. Peak/mean gradient across the Aortic Valve is 53.27mmHg / 24.82mmHg. 14. The mitral valve leaflets are moderate to severely thickened. 15. Moderate mitral annular calcification present. 16. Mild mitral regurgitation is present. 17. The peak and mean MV gradients are 15.34mmHg 4.77mmHg as measured by doppler. 18. Mild mitral stenosis. 19. The tricuspid valve appears structurally normal. 20. No regurgitation noted 21. There is no pulmonic regurgitation present. 22. The aortic root size is normal. 23. Normal inferior vena cava with normal inspiratory collapse consistent with estimated right atrial pressure of 5 mmHg. 24. There is no pericardial effusion. RADIO FREQUENCY ENGINEER: Malorie Latham RDCS
[2019-06-11] MEDS: metFORMIN 500 MG TAB PO SCH ×2 (09:13→21:23)
[2019-06-11] MEDS: SPIRONOLACTONE 25 MG TAB PO SCH (09:13)
[2019-06-11] MEDS: METOPROLOL TARTRATE 25 MG TAB PO SCH ×2 (09:13→21:24)
[2019-06-11] MEDS: ATORVASTATIN 80 MG TAB PO SCH (09:13)
[2019-06-11] MEDS: DOCUSATE 100 MG CAP PO SCH ×2 (09:13→21:23)
[2019-06-11] MEDS: ASPIRIN 81 MG PO SCH (09:13)
[2019-06-11] MEDS: VENLAFAXINE HCL ER 75 MG CAP PO SCH (09:18)
[2019-06-11] MEDS: NON FORMULARY DRUG (Empagliflozin [Jardiance] 25 MG) PO SCH (09:19)
[2019-06-11 12:02] LABS: Glucose,Whole Blood 167 mg/dL (75-99)
--- NOTE | 2019-06-11 12:15 | P.PN ---
Subjective Progress Note Date: 06/11/19 Patient was seen for a follow-up. Patient's daughter was also present. Patient feels back to baseline. Denies any numbness tingling weakness or speech difficulty at this time. Patient's workup showed: MRI of the brain without contrast showed suspect a year off tiny acute lacunar infarction high right posterior frontal lobe near parietal junction. Background mild to moderate diffuse cerebral atrophy and moderate to severe chronic small vessel ischemic changes. More prominent subtle T2 hyperintensity diffusely involving the ayaz somewhat more than suspected for productive of his proximal vessel ischemic change. Low-grade neoplasm is in the differential. Differential also includes osmotic demyelination syndrome, though pattern is atypical with more diffuse involvement. Other etiologies are not excluded. Contrast enhanced MRI may be beneficial. 2-D echo with ejection fraction 60-65%. There is severe aortic regurgitation, moderate aortic stenosis, mitral valve is moderate to severely thickened. Mild mitral stenosis. Hemoglobin A1c 5.9, total cholesterol 227, LDL 153, HDL 36 and triglycerides 191. CTA of the brain was negative. CTA of the neck showed atherosclerotic plaque formation approximate 50% stenosis of vision of the left ICA and 25% stenosis at the origin of right ICA. Extensive atheromatous change in the aortic arch. Objective - Vital Signs Vital signs: Vital Signs Temp 97.5 F L 06/11/19 08:00 Pulse 67 06/11/19 08:00 Resp 18 06/11/19 08:00 BP 144/64 06/11/19 08:00 Pulse Ox 92 L 06/11/19 08:00 Intake & Output 06/10/19 06/11/19 06/11/19 18:59 06:59 18:59 Intake Total 1050 Balance 1050 Weight 73.3 kg Intake: Intake, IV Titration 1050 Amount Sodium Chloride 0.9% 1, 1000 000 ml @ 999 mls/hr IV . Q1H1M [facility] Rx#:[id number] cefTRIAXone 1 gm In 50 Sodium Chloride 0.9% 50 ml @ 100 mls/hr IVPB Q24H [facility] Rx#:[id number] Other: Voiding Method Toilet Toilet # Voids 2 1 # Bowel Movements 1 - Exam On examination patient's mental status, speech and language functions are normal. Pupils are round and reacting, visual dove are full. Face is symmetric and tongue protrudes the midline. Muscle strength is normal. No ataxia. Sensations equal. Tone and bulk of muscles normal. - Labs CBC & Chem 7: 06/09/19 20:18 06/09/19 20:18 Labs: Abnormal Lab Results - Last 24 Hours (Table) 06/10/19 06/11/19 Range/Units 20:20 12:01 POC Glucose (mg/dL) 115 H 167 H (75-99) mg/dL Assessment and Plan Assessment: * Tiny acute lacunar infarction high right posterior frontal lobe near parietal junction. Stroke likely related to small vessel disease. * Abnormal signal in the ayaz, likely related to small vessel disease. Doubt new neoplasm. Osmotic demyelination is in the differential. * CTA revealed left ICA stenosis 50%, and right 25%. * Elevated cardiac enzymes. * Abnormal 2-D echo with severe aortic regurgitation, moderate aortic stenosis and mild mitral stenosis. * Diabetes, well controlled * Hyperlipidemia * Long-standing history of tobacco use, 2 pack per day for over 50 years. Plan: * MRI showed a small lacunar stroke involving the right parietal cortex. We will start Plavix 75 mg daily. * Cardiology is on board for elevated cardiac enzymes. Regarding abnormal 2-D echo report, will defer to cardiology. * Continue statins. * Tobacco cessation recommended. * Discussed with patient's daughter in detail.
--- NOTE | 2019-06-11 13:09 | P.PN ---
Subjective Progress Note Date: 06/11/19 This is a very pleasant 74-year-old female patient with a past medical history significant for smoking, chronic obstructive pulmonary disease, diabetes, hypertension, dyslipidemia, was brought to the emergency room by her family after she was found on the floor, falling from the bed, unresponsive. The patient is somewhat poor historian and the history was taken from her daughter who was bit side. The patient was in her usual state of health until her was downstairs and he heard a noise when he went to check on her upstairs and found the patient on the floor unresponsive and confused. At that point the patient was brought to the emergency room. She underwent a CTA of the head and that showed mild to moderate atherosclerosis disease involving the carotid arteries bilaterally. The computed tomography scan of the head showed old infarct without any acute infarction. We involved in the care of the patient because her troponin was checked and came to be slightly abnormal but it seems to be flat across the board. The EKG showed sinus tachycardia. The rest of the blood work came in to be unremarkable. The patient denies any symptoms of chest pain or chest discomfort, shortness of breath, dizziness, or heart racing or fluttering. On examination she does have a very prominent systolic murmur at the right upper sternal border. Currently the patient has also some swallow issues. The patient was admitted to the hospital back in February 2019 with increasing in the shortness of breath and at that point she was diagnosed was congestive heart failure exacerbation. An echocardiogram was performed at that point and revealed cardiomyopathy with EF around 35-40%. At that point the patient was treated medically and was discharged in stable medical condition. 06/11/2019 Seen and examined this morning, doing significantly better. Alert and oriented, able to speak. Blood pressure 144/64 with a heart rate in the 60s, temperature 97.5, 92% on 3 L of oxygen. A cardiogram with Doppler study was performed which revealed a normal left ventricular systolic function, severe aortic regurgitation and moderate aortic stenosis. Objective - Vital Signs Vital signs: Vital Signs Temp 97.5 F L 06/11/19 12:00 Pulse 67 06/11/19 12:00 Resp 18 06/11/19 12:00 BP 140/96 06/11/19 12:00 Pulse Ox 97 06/11/19 12:00 Intake & Output 06/10/19 06/11/19 06/11/19 18:59 06:59 18:59 Intake Total 1050 Balance 1050 Weight 73.3 kg Intake: Intake, IV Titration 1050 Amount Sodium Chloride 0.9% 1, 1000 000 ml @ 999 mls/hr IV . Q1H1M [facility] Rx#:[id number] cefTRIAXone 1 gm In 50 Sodium Chloride 0.9% 50 ml @ 100 mls/hr IVPB Q24H [facility] Rx#:[id number] Other: Voiding Method Toilet Toilet # Voids 2 1 # Bowel Movements 1 - Exam PHYSICAL EXAMINATION: GENERAL: 74-year-old female in no acute distress at the time of my examination HEENT: Head is atraumatic, normocephalic. Pupils equal, round. Sclera anicteric. Conjunctiva are clear. Mucous membranes of the mouth are moist. Neck is supple. There is no elevated jugular venous pressure. No carotid bruit is heard. HEART EXAMINATION: Heart S1 and S2 systolic murmur is heard CHEST EXAMINATION: Lungs are clear to auscultation and precussion. No chest wall tenderness is noted on palpation or with deep breathing. ABDOMEN: Soft, nontender. Bowel sounds are heard. No organomegaly noted. EXTREMITIES: 2+ peripheral pulses with no evidence of peripheral edema and no calf tenderness noted. NEUROLOGIC patient is awake, alert and oriented 3. . - Labs CBC & Chem 7: 06/09/19 20:18 06/09/19 20:18 Labs: Abnormal Lab Results - Last 24 Hours (Table) 06/10/19 06/11/19 Range/Units 20:20 12:01 POC Glucose (mg/dL) 115 H 167 H (75-99) mg/dL Assessment and Plan Plan: Assessment and plan #1 slurring of speech, confusion, inability to stand, evidence on brain MRI of tiny acute lacunar infarction in the high right posterior frontal lobe near the parietal junction. Background mild to moderate diffuse cerebral atrophy and moderate to severe chronic small vessel ischemic change. More prominent subtle T2 hyperintensity diffusely involving the ayaz somewhat more than suspected 4 products of the proximal vessel ischemic change. Low-grade neoplasm is in the differential. Differential also includes osmotic demyelination syndrome though the pattern is atypical with more diffuse involvement. Other etiologies are not excluded. #2 hypertension #3 abnormality in troponin, not consistent with acute coronary syndrome, could be secondary to acute CVA. Echo cardiogram with Doppler study revealed normal left ventricular systolic function. Ejection fraction by echo 60-65% with evidence of severe aortic regurgitation and moderate aortic stenosis. #4 diabetes #5 hyperlipidemia #6 hypothyroidism #7 prior history of smoking Plan From cardiology's perspective, we'll recommend to continue current medications including dual antiplatelet therapy. Maintain adequate blood pressure control. DNP note has been reviewed, I agree with a documented findings and plan of care. Patient was seen and examined.
--- NOTE | 2019-06-11 13:18 | P.PN ---
Subjective Patient back to baseline able to stand no neuro deficits noted today. Patient has been evaluated by cardiology and neurology. MRI shows of lacunar infarct. Elevated troponins not acute coronary syndrome but may be related to CVA Objective - Vital Signs Vital signs: Vital Signs Temp 97.5 F L 06/11/19 12:00 Pulse 67 06/11/19 12:00 Resp 18 06/11/19 12:00 BP 140/96 06/11/19 12:00 Pulse Ox 97 06/11/19 12:00 Intake & Output 06/10/19 06/11/19 06/11/19 18:59 06:59 18:59 Intake Total 1050 Balance 1050 Weight 73.3 kg Intake: Intake, IV Titration 1050 Amount Sodium Chloride 0.9% 1, 1000 000 ml @ 999 mls/hr IV . Q1H1M [facility] Rx#:[id number] cefTRIAXone 1 gm In 50 Sodium Chloride 0.9% 50 ml @ 100 mls/hr IVPB Q24H [facility] Rx#:[id number] Other: Voiding Method Toilet Toilet # Voids 2 1 # Bowel Movements 1 - Constitutional General appearance: Present: mild distress - EENT Eyes: Present: PERRLA Ears: bilateral: normal - Neck Neck: Present: normal ROM - Respiratory Respiratory: bilateral: rhonchi - Cardiovascular Rhythm: regular Abnormal Heart Sounds: Present: systolic murmur - Gastrointestinal General gastrointestinal: Present: soft - Integumentary Integumentary: Present: normal - Neurologic Neurologic: Present: CNII-XII intact - Psychiatric Psychiatric: Present: A&O x's 3 - Labs CBC & Chem 7: 06/09/19 20:18 06/09/19 20:18 Labs: Abnormal Lab Results - Last 24 Hours (Table) 06/10/19 06/11/19 Range/Units 20:20 12:01 POC Glucose (mg/dL) 115 H 167 H (75-99) mg/dL - Imaging and Cardiology MRI - head: report reviewed Assessment and Plan Plan: Assessment Acute CVA [place] infarct Altered mental status secondary to CVA improving History of COPD Diabetes type 2 Hypertension Hyperlipidemia Hypothyroidism Cardiomyopathy with moderate aortic stenosis Elevated troponin not related acute coronary syndrome possibly from CVA Plan Continue consultation with neurology and cardiology
[2019-06-11 16:44] LABS: Glucose,Whole Blood 112 mg/dL (75-99)
[2019-06-11] MEDS: CLOPIDOGREL 75 MG TAB PO SCH (17:23)
[2019-06-11 20:00] LABS: Glucose,Whole Blood 141 mg/dL (75-99)
[2019-06-12 06:02] LABS: Glucose,Whole Blood 113 mg/dL (75-99)
[2019-06-12] MEDS: INSULIN ASPART (NovoLOG) 100 UNIT/ML VIAL SQ SCH ×2 (06:08→12:07)
[2019-06-12] MEDS: LEVOTHYROXINE 100 MCG TAB PO SCH (06:17)
[2019-06-12 09:45] VITALS: BP 137/44; PULSE 76; RESP 16; TEMP 97.8
[2019-06-12] MEDS: CLOPIDOGREL 75 MG TAB PO SCH (09:45)
[2019-06-12] MEDS: DOCUSATE 100 MG CAP PO SCH (09:45)
[2019-06-12] MEDS: metFORMIN 500 MG TAB PO SCH (09:45)
[2019-06-12] MEDS: SPIRONOLACTONE 25 MG TAB PO SCH (09:45)
[2019-06-12] MEDS: ATORVASTATIN 80 MG TAB PO SCH (09:45)
[2019-06-12] MEDS: ASPIRIN 81 MG PO SCH (09:45)
[2019-06-12] MEDS: METOPROLOL TARTRATE 25 MG TAB PO SCH (09:45)
[2019-06-12] MEDS: NON FORMULARY DRUG (Empagliflozin [Jardiance] 25 MG) PO SCH (09:46)
[2019-06-12] MEDS: VENLAFAXINE HCL ER 75 MG CAP PO SCH (09:46)
[2019-06-12 11:38] LABS: Glucose,Whole Blood 136 mg/dL (75-99)
--- NOTE | 2019-06-12 11:41 | P.PN ---
Subjective Progress Note Date: 06/12/19 Principal diagnosis: Stroke This is a very pleasant 74-year-old female patient with a past medical history significant for diabetes, hypertension, and dyslipidemia, who was admitted to the hospital with a stroke. She underwent an MRI of the brain which revealed acute lacunar infarction. She was seen this morning. Her speech has improved significantly. Overall she is feeling better. Hemodynamically she is stable controlled blood pressure and heart rate. She is on dual antiplatelet therapy along with a statin. From the cardiovascular standpoint overview, the patient can be discharged home Objective - Vital Signs Vital signs: Vital Signs Temp 97.8 F 06/12/19 08:00 Pulse 76 06/12/19 08:00 Resp 16 06/12/19 08:00 BP 137/44 06/12/19 08:00 Pulse Ox 92 L 06/12/19 08:00 Intake & Output 06/11/19 06/12/19 06/12/19 18:59 06:59 18:59 Intake Total 336 Balance 336 Weight 73.2 kg Intake: Oral 336 Other: Voiding Method Toilet # Voids 2 1 - Constitutional General appearance: Present: no acute distress - Respiratory Respiratory: bilateral: CTA - Cardiovascular Heart sounds: normal: S1, S2 Abnormal Heart Sounds: Present: systolic murmur - Labs CBC & Chem 7: 06/09/19 20:18 06/09/19 20:18 Labs: Abnormal Lab Results - Last 24 Hours (Table) 06/11/19 06/11/19 06/11/19 Range/Units 12:01 16:43 19:56 POC Glucose (mg/dL) 167 H 112 H 141 H (75-99) mg/dL 06/12/19 06/12/19 Range/Units 06:00 11:33 POC Glucose (mg/dL) 113 H 136 H (75-99) mg/dL Assessment and Plan Assessment: Assessment #1 lacunar stroke #2 mildly abnormal troponin Plan #1 continue the current medical regimen #2 continue dual antiplatelet therapy with a statin #3 the patient can be discharged home
--- NOTE | 2019-06-12 15:55 | P.PN ---
Subjective Progress Note Date: 06/12/19 Patient was seen for a follow-up. Patient's daughter was also present. Patient feels back to baseline. Denies any numbness tingling weakness or speech difficulty at this time. Overall, patient is feeling much better. Patient's workup showed: MRI of the brain without contrast showed suspect a year off tiny acute lacunar infarction high right posterior frontal lobe near parietal junction. Background mild to moderate diffuse cerebral atrophy and moderate to severe chronic small vessel ischemic changes. More prominent subtle T2 hyperintensity diffusely involving the ayaz somewhat more than suspected for productive of his proximal vessel ischemic change. Low-grade neoplasm is in the differential. Differential also includes osmotic demyelination syndrome, though pattern is atypical with more diffuse involvement. Other etiologies are not excluded. Contrast enhanced MRI may be beneficial. 2-D echo with ejection fraction 60-65%. There is severe aortic regurgitation, moderate aortic stenosis, mitral valve is moderate to severely thickened. Mild mitral stenosis. Hemoglobin A1c 5.9, total cholesterol 227, LDL 153, HDL 36 and triglycerides 191. CTA of the brain was negative. CTA of the neck showed atherosclerotic plaque formation approximate 50% stenosis of vision of the left ICA and 25% stenosis at the origin of right ICA. Extensive atheromatous change in the aortic arch. Objective - Vital Signs Vital signs: Vital Signs Temp 97.8 F 06/12/19 08:00 Pulse 76 06/12/19 08:00 Resp 16 06/12/19 08:00 BP 137/44 06/12/19 08:00 Pulse Ox 92 L 06/12/19 08:00 Intake & Output 06/11/19 06/12/19 06/12/19 18:59 06:59 18:59 Intake Total 336 720 Balance 336 720 Weight 73.2 kg Intake: Oral 336 720 Other: Voiding Method Toilet # Voids 2 1 - Exam On examination patient's mental status, speech and language functions are normal. Pupils are round and reacting, visual dove are full. Face is symmetric and tongue protrudes the midline. Muscle strength is normal. No pronator drift. No ataxia. Sensations equal. Tone and bulk of muscles normal. Patient states her gait has been stable. - Labs CBC & Chem 7: 06/09/19 20:18 06/09/19 20:18 Labs: Abnormal Lab Results - Last 24 Hours (Table) 06/11/19 06/11/19 06/12/19 Range/Units 16:43 19:56 06:00 POC Glucose (mg/dL) 112 H 141 H 113 H (75-99) mg/dL 06/12/19 Range/Units 11:33 POC Glucose (mg/dL) 136 H (75-99) mg/dL Assessment and Plan Assessment: * Tiny acute lacunar infarction high right posterior frontal lobe near parietal junction. Stroke likely related to small vessel disease. * Abnormal signal in the ayaz, likely related to small vessel disease. Doubt neoplasm. Osmotic demyelination is also in the differential. * CTA revealed left ICA stenosis 50%, and right 25%. * Elevated cardiac enzymes. * Abnormal 2-D echo with severe aortic regurgitation, moderate aortic stenosis and mild mitral stenosis. Cardiology following. * Diabetes, well controlled * Hyperlipidemia * Long-standing history of tobacco use, 2 pack per day for over 50 years. Plan: * MRI showed a small lacunar stroke involving the right parietal cortex. We will start Plavix 75 mg daily. * Cardiology is on board for elevated cardiac enzymes. Regarding abnormal 2-D echo report, will defer to cardiology. * Continue statins. * Tobacco cessation recommended. * Patient for discharge from neurology point. * Patient and her daughter were recommended to have patient follow up with a local neurologist in 4-6 weeks.
--- NOTE | 2019-06-12 19:28 | P.DS ---
Providers Date of admission: 06/09/19 22:25 Expected date of discharge: 06/12/19 Attending physician: Odin Boswell Consults: 06/09/19 22:25 Consult Physician Routine Consulting Provider: Komal Shah Consult Reason/Comments: nstemi Do you want consulting provider notified?: Yes Consult Physician Urgent Consulting Provider: Celso Orozco Consult Reason/Comments: cva Do you want consulting provider notified?: Yes Primary care physician: Odin Boswell Hospital Course: Final diagnosis Acute CVA Elevated troponin non-STEMI PR needs to be ruled out COPD Nicotine use 3 packs a day Diabetes type 2 Hypertension Hyperlipidemia Hypothyroidism Weakness Discharge disposition Patient is being discharged in a stable condition with guarded prognosis to home and will follow up with primary care provider upon discharge. Patient will also follow up with neurology in the office in 4 weeks. Total time taken is 35 minutes History of present illness 74-year-old female presented to emergency room after fall. Patient at that time was unable to speak unable to stand or sit. Was brought to the emergency room by EMS. Patient has a history of COPD with smoking history of 3 packs a day diabetes type 2 hypertension hyperlipidemia. Patient was seen by neurology during hospitalization and will follow up in the outpatient setting. Patient was found to have a tiny acute lacunar infarction of the right posterior frontal lobe near the parietal junction, cerebral atrophy and moderate to severe chronic small vessel ischemic changes. CTA of the brain was negative while the neck showed some stenosis of the left ICA of 50% and right ICA at 25%. Patient was placed on plavix. Patient also underwent an echo due to elevated troponins and was found to have an EF of 60-65% with severe aortic regurgitation, moderate aortic stenosis, and mild mitral stenosis. Currently patients condition is stable with much improvement and patient feels she is back to baseline and would like to go home. Family is at the bedside and is agreeable to this. On exam vital signs are stable. Cardio S1 and S2 are present. Respiratory system shows diminished breath sounds otherwise clear to auscultation. Abdomen is soft and non-tender. Nervous system shows no focal deficits. Please refer to medication reconciliation sheet for a list of medications. Patient Condition at Discharge: Stable Plan - Discharge Summary Discharge Rx Participant: Yes New Discharge Prescriptions: New Aspirin 81 mg PO DAILY 30 Days #30 chew Atorvastatin [Lipitor] 80 mg PO DAILY 30 Days #30 tab Metoprolol Tartrate [Lopressor] 25 mg PO BID 30 Days #60 tab Clopidogrel [Plavix] 75 mg PO DAILY 30 Days #30 tab Continue Venlafaxine HCl [Effexor XR] 75 mg PO DAILY sitaGLIPtin [Januvia] 100 mg PO DAILY metFORMIN HCL 1,000 mg PO BID Levothyroxine Sodium [Synthroid] 200 mcg PO DAILY Empagliflozin [Jardiance] 25 mg PO DAILY Spironolactone [Aldactone] 25 mg PO DAILY Docusate [Colace] 100 mg PO BID Albuterol Sulfate [Ventolin HFA] 1 - 2 puff INHALATION RT-Q4H PRN PRN Reason: Shortness Of Breath Discontinued Bisoprolol/Hydrochlorothiazide [Bisoprolol-Hctz 5-6.25 mg Tab] 1 tab PO DAILY Penicillin V Potassium [Pen Vee K] 500 mg PO QID Discharge Medication List Levothyroxine Sodium [Synthroid] 200 mcg PO DAILY 02/05/19 [History] Venlafaxine HCl [Effexor XR] 75 mg PO DAILY 02/05/19 [History] metFORMIN HCL 1,000 mg PO BID 02/05/19 [History] sitaGLIPtin [Januvia] 100 mg PO DAILY 02/05/19 [History] Empagliflozin [Jardiance] 25 mg PO DAILY 06/09/19 [History] Albuterol Sulfate [Ventolin HFA] 1 - 2 puff INHALATION RT-Q4H PRN 06/10/19 [History] Docusate [Colace] 100 mg PO BID 06/10/19 [History] Spironolactone [Aldactone] 25 mg PO DAILY 06/10/19 [History] Aspirin 81 mg PO DAILY 30 Days #30 chew 06/12/19 [Rx] Atorvastatin [Lipitor] 80 mg PO DAILY 30 Days #30 tab 06/12/19 [Rx] Clopidogrel [Plavix] 75 mg PO DAILY 30 Days #30 tab 06/12/19 [Rx] Metoprolol Tartrate [Lopressor] 25 mg PO BID 30 Days #60 tab 06/12/19 [Rx] Follow up Appointment(s)/Referral(s): Odin Boswell MD [Primary Care Provider] - 06/19/19 2:10 pm Damaris Vann MD [STAFF PHYSICIAN] - 07/20/19 11:30 am Ambulatory/Diagnostic Orders: Complete Blood Count w/diff [LAB.AMB] Time Frame: 3 Days, Location: None Selected Patient Instructions/Handouts: How to Stop Smoking (DC), Heart Healthy Diet (DC), Ischemic Stroke (DC) Activity/Diet/Wound Care/Special Instructions: Activity Limited until follow-up Follow-up with primary care provider upon discharge Continue current diet and monitor for aspiration precautions with thin liquids, may continue nectar thickened Follow-up with neurology in the outpatient setting Repeat labs in 2-3 days Discharge Disposition: HOME SELF-CARE
== END 2019-06-12 13:25 | disposition home or self-care (01) | DRG 65 ==
LOC: EC 20:03 → 3SCARD 22:25
PROVIDERS: ADMIT Family Medicine; ATTEND Family Medicine
DX: I63.81 Other cerebral infarction due to occlusion or stenosis of small artery (principal); I42.8 Other cardiomyopathies; E03.9 Hypothyroidism, unspecified; E11.51 Type 2 diabetes mellitus with diabetic peripheral angiopathy without gangrene; E78.5 Hyperlipidemia, unspecified; F17.210 Nicotine dependence, cigarettes, uncomplicated; F32.9 Major depressive disorder, single episode, unspecified; I50.9 Heart failure, unspecified; I11.0 Hypertensive heart disease with heart failure; I08.0 Rheumatic disorders of both mitral and aortic valves; I49.1 Atrial premature depolarization; J44.9 Chronic obstructive pulmonary disease, unspecified; W06.XXXA Fall from bed, initial encounter; Z79.84 Long term (current) use of oral hypoglycemic drugs; Z79.890 Hormone replacement therapy; Z79.899 Other long term (current) drug therapy; Z82.49 Family history of ischemic heart disease and other diseases of the circulatory system; R79.89 Other specified abnormal findings of blood chemistry; R47.81 Slurred speech; Z87.01 Personal history of pneumonia (recurrent); Z90.49 Acquired absence of other specified parts of digestive tract
CPT/HCPCS: 36415; 70450; 70496; 70498; 70551; 71046; 74230; 80053; 80061; 82550; 84484; 85025; 85610; 85730; 87502; 93005; 93306; 96360; 96361; 99291

== ENCOUNTER 2019-06-20 11:03 | Emergency (ER) | payer MEDICARE ==
[2019-06-20 11:13] LABS: Glucose,Whole Blood 82 mg/dL (75-99)
[2019-06-20 11:20] VITALS: PULSE 70; TEMP 97.9
--- NOTE | 2019-06-20 11:43 | ED ---
Recheck HPI - General Chief Complaint: Recheck/Abnormal Lab/Rx Stated Complaint: Blood Sugar Time Seen by Provider: 06/20/19 11:03 Source: patient, family, EMS, RN notes reviewed Mode of arrival: EMS - History of Present Illness Initial Comments: This 74-year-old female with a history of CVA in the past also history of diabetes who was found this morning feeling weak and confused with some abnormal behavior. She is found have a blood glucose of 30 she was given one half amp of glucose he did go up to 153. She is more awake alert he will move her extremities better. Upon arrival here she is found have a blood glucose of 80. No falls no fevers chills nausea vomiting sweats no other new symptoms or findings no other current modifying factors the patient was initially somewhat slow to respond upon arrival but quickly seems back to normal. - Related Data Home Medications Medication Instructions Recorded Confirmed Levothyroxine Sodium [Synthroid] 200 mcg PO DAILY 02/05/19 06/09/19 Venlafaxine HCl [Effexor XR] 75 mg PO DAILY 02/05/19 06/09/19 metFORMIN HCL 1,000 mg PO BID 02/05/19 06/09/19 sitaGLIPtin [Januvia] 100 mg PO DAILY 02/05/19 06/09/19 Empagliflozin [Jardiance] 25 mg PO DAILY 06/09/19 06/09/19 Albuterol Sulfate [Ventolin HFA] 1 - 2 puff INHALATION RT-Q4H PRN 06/10/19 06/10/19 Docusate [Colace] 100 mg PO BID 06/10/19 06/10/19 Spironolactone [Aldactone] 25 mg PO DAILY 06/10/19 06/10/19 Previous Rx's Medication Instructions Recorded Aspirin 81 mg PO DAILY 30 Days #30 chew 06/12/19 Atorvastatin [Lipitor] 80 mg PO DAILY 30 Days #30 tab 06/12/19 Clopidogrel [Plavix] 75 mg PO DAILY 30 Days #30 tab 06/12/19 Metoprolol Tartrate [Lopressor] 25 mg PO BID 30 Days #60 tab 06/12/19 Magnesium 200 mg PO DAILY #15 tablet 06/20/19 Potassium Chloride ER [K-Dur 20] 20 meq PO BID #30 tab 06/20/19 Allergies Allergy/AdvReac Type Severity Reaction Status Date / Time No Known Allergies Allergy Verified 06/09/19 22:35 Review of Systems ROS Statement: Those systems with pertinent positive or pertinent negative responses have been documented in the HPI. ROS Other: All systems not noted in ROS Statement are negative. Past Medical History Past Medical History: COPD, Diabetes Mellitus, Hyperlipidemia, Hypertension, Pneumonia, Thyroid Disorder Additional Past Medical History / Comment(s): NIDDM type II, bronchitis, hypothyroid, anemia with . History of Any Multi-Drug Resistant Organisms: None Reported Past Surgical History: Cholecystectomy, Tonsillectomy, Tubal Ligation Past Anesthesia/Blood Transfusion Reactions: No Reported Reaction, Motion Sickness Past Psychological History: Depression Smoking Status: Current every day smoker Past Alcohol Use History: None Reported Past Drug Use History: None Reported - Past Family History Father Family Medical History: No Reported History Additional Family Medical History / Comment(s): Father lived into his 80s Mother Family Medical History: Myocardial Infarction ([place]) Additional Family Medical History / Comment(s): Mother at the age of 56yrs pt believes was from a [place] General Exam - General Exam Comments Initial Comments: This a well-developed well-nourished awake alert oriented 3 female General appearance: alert, in no apparent distress Head exam: Present: atraumatic, normocephalic, normal inspection Eye exam: Present: normal appearance, PERRL, EOMI. Absent: scleral icterus, conjunctival injection, periorbital swelling ENT exam: Present: normal exam, mucous membranes moist Neck exam: Present: normal inspection, full ROM, other (No stridor JVD or bruits). Absent: tenderness, meningismus, lymphadenopathy Respiratory exam: Present: normal lung sounds bilaterally. Absent: respiratory distress, wheezes, rales, rhonchi, stridor Cardiovascular Exam: Present: regular rate, normal rhythm, normal heart sounds. Absent: systolic murmur, diastolic murmur, rubs, gallop, clicks GI/Abdominal exam: Present: soft, normal bowel sounds. Absent: distended, tenderness, guarding, rebound, rigid Extremities exam: Present: normal inspection, full ROM, normal capillary refill. Absent: tenderness, pedal edema, joint swelling, calf tenderness Back exam: Present: normal inspection Neurological exam: Present: alert, oriented X3, CN II-XII intact Psychiatric exam: Present: normal affect, normal mood Skin exam: Present: warm, dry, intact, normal color. Absent: rash Course Vital Signs 06/20/19 11:18 Temperature 97.9 F Pulse Rate 70 Respiratory 16 Rate Blood Pressure 150/75 O2 Sat by Pulse 97 Oximetry Medical Decision Making - Medical Decision Making I did reevaluate the patient multiple occasions she is awake alert able ably without difficulty blood sugar has normalized. He was noted have hypokalemia and hypomagnesemia. She did get potassium supplements in the emergency department she'll be placed on supplements of note family did state that she's been having some diarrhea recently a prescription for a C. diff study will be given. - Lab Data Result diagrams: 06/20/19 11:20 06/20/19 11:20 Lab Results 06/20/19 06/20/19 06/20/19 Range/Units 11:09 11:20 11:20 WBC 10.5 (3.8-10.6) k/uL RBC 3.86 (3.80-5.40) m/uL Hgb 11.7 (11.4-16.0) gm/dL Hct 34.8 (34.0-46.0) % MCV 90.2 (80.0-100.0) fL MCH 30.2 (25.0-35.0) pg MCHC 33.5 (31.0-37.0) g/dL RDW 14.6 (11.5-15.5) % Plt Count 286 (150-450) k/uL Neutrophils % 77 % Lymphocytes % 15 % Monocytes % 7 % Eosinophils % 1 % Basophils % 0 % Neutrophils # 8.0 H (1.3-7.7) k/uL Lymphocytes # 1.5 (1.0-4.8) k/uL Monocytes # 0.7 (0-1.0) k/uL Eosinophils # 0.1 (0-0.7) k/uL Basophils # 0.0 (0-0.2) k/uL Poikilocytosis Slight Sodium 141 (137-145) mmol/L Potassium 3.3 L (3.5-5.1) mmol/L Chloride 109 H (98-107) mmol/L Carbon Dioxide 24 (22-30) mmol/L Anion Gap 8 mmol/L BUN 11 (7-17) mg/dL Creatinine 0.66 (0.52-1.04) mg/dL Est GFR (CKD-EPI)AfAm >90 (>60 ml/min/1.73 sqM) Est GFR (CKD-EPI)NonAf 87 (>60 ml/min/1.73 sqM) Glucose 61 L (74-99) mg/dL POC Glucose (mg/dL) 82 (75-99) mg/dL POC Glu Assistant County Engineer ID Zachary Polk Calcium 9.0 (8.4-10.2) mg/dL Magnesium 1.3 L (1.6-2.3) mg/dL Total Bilirubin 0.4 (0.2-1.3) mg/dL AST 25 (14-36) U/L ALT 17 (9-52) U/L Alkaline Phosphatase 59 (38-126) U/L Total Protein 6.5 (6.3-8.2) g/dL Albumin 3.4 L (3.5-5.0) g/dL 06/20/19 Range/Units 12:25 WBC (3.8-10.6) k/uL RBC (3.80-5.40) m/uL Hgb (11.4-16.0) gm/dL Hct (34.0-46.0) % MCV (80.0-100.0) fL MCH (25.0-35.0) pg MCHC (31.0-37.0) g/dL RDW (11.5-15.5) % Plt Count (150-450) k/uL Neutrophils % % Lymphocytes % % Monocytes % % Eosinophils % % Basophils % % Neutrophils # (1.3-7.7) k/uL Lymphocytes # (1.0-4.8) k/uL Monocytes # (0-1.0) k/uL Eosinophils # (0-0.7) k/uL Basophils # (0-0.2) k/uL Poikilocytosis Sodium (137-145) mmol/L Potassium (3.5-5.1) mmol/L Chloride (98-107) mmol/L Carbon Dioxide (22-30) mmol/L Anion Gap mmol/L BUN (7-17) mg/dL Creatinine (0.52-1.04) mg/dL Est GFR (CKD-EPI)AfAm (>60 ml/min/1.73 sqM) Est GFR (CKD-EPI)NonAf (>60 ml/min/1.73 sqM) Glucose (74-99) mg/dL POC Glucose (mg/dL) 81 (75-99) mg/dL POC Glu Assistant County Engineer ID Marty Chavez Calcium (8.4-10.2) mg/dL Magnesium (1.6-2.3) mg/dL Total Bilirubin (0.2-1.3) mg/dL AST (14-36) U/L ALT (9-52) U/L Alkaline Phosphatase (38-126) U/L Total Protein (6.3-8.2) g/dL Albumin (3.5-5.0) g/dL Disposition Clinical Impression: Hypoglycemic episode in patient with diabetes mellitus, Hypokalemia, Hypomagnesemia, History of diarrhea Disposition: HOME SELF-CARE Condition: Good Instructions (If sedation given, give patient instructions): Acute Diarrhea (ED), Hypoglycemia in a Person with Diabetes (ED), Hypokalemia (ED), Hypomagne semia (ED) Prescriptions: Potassium Chloride ER [K-Dur 20] 20 meq PO BID #30 tab Magnesium 200 mg PO DAILY #15 tablet Is patient prescribed a controlled substance at d/c from ED?: No Referrals: Odin Boswell MD [Primary Care Provider] - 1-2 days
[2019-06-20 11:44] LABS: Basophils % (A) 0 %; Eosinophils # (A) 0.1 k/uL (0-0.7); Eosinophils % (A) 1 %; HCT 34.8 % (34.0-46.0); HGB 11.7 gm/dL (11.4-16.0); Lymphocytes # (A) 1.5 k/uL (1.0-4.8); Lymphocytes % (A) 15 %; MCH 30.2 pg (25.0-35.0); MCHC 33.5 g/dL (31.0-37.0); MCV 90.2 fL (80.0-100.0); Monocytes # (A) 0.7 k/uL (0-1.0); Monocytes % (A) 7 %; Neutrophils % (A) 77 %; Platelet Count 286 k/uL (150-450); Poikilocytosis Slight; RBC 3.86 m/uL (3.80-5.40); RDW 14.6 % (11.5-15.5); WBC 10.5 k/uL (3.8-10.6)
[2019-06-20 11:54] LABS: ALT 17 U/L (9-52); AST 25 U/L (14-36); African American GFR (CKD) >90 (>60 ml/min/1.73 sqM); Albumin 3.4 g/dL (3.5-5.0); Alkaline Phosphatase 59 U/L (38-126); Anion Gap 8 mmol/L; Blood Urea Nitrogen 11 mg/dL (7-17); Carbon Dioxide 24 mmol/L (22-30); Chloride 109 mmol/L (98-107); Glucose 61 mg/dL (74-99); Magnesium 1.3 mg/dL (1.6-2.3); Non-African American GFR(CKD) 87 (>60 ml/min/1.73 sqM); Potassium 3.3 mmol/L (3.5-5.1); Sodium 141 mmol/L (137-145); Total Bilirubin 0.4 mg/dL (0.2-1.3); Total Protein 6.5 g/dL (6.3-8.2)
[2019-06-20] MEDS ORDERED: POTASSIUM CHLORIDE ER 20 MEQ TAB.ER PO STA (12:19)
[2019-06-20 12:26] LABS: Glucose,Whole Blood 81 mg/dL (75-99)
[2019-06-20 13:32] VITALS: BP 147/70; RESP 18
== END 2019-06-20 13:17 | disposition home or self-care (01) ==
LOC: EC 11:03
DX: E87.6 Hypokalemia (principal); E83.42 Hypomagnesemia; E11.649 Type 2 diabetes mellitus with hypoglycemia without coma; Z87.19 Personal history of other diseases of the digestive system; J44.9 Chronic obstructive pulmonary disease, unspecified; I10 Essential (primary) hypertension; E03.9 Hypothyroidism, unspecified; F32.9 Major depressive disorder, single episode, unspecified; F17.200 Nicotine dependence, unspecified, uncomplicated; Z79.84 Long term (current) use of oral hypoglycemic drugs; Z79.890 Hormone replacement therapy; Z79.899 Other long term (current) drug therapy; Z90.49 Acquired absence of other specified parts of digestive tract
CPT/HCPCS: 36415; 80053; 83735; 85025; 99285

== ENCOUNTER → 2019-09-09 | Outpatient (CLI) | payer MEDICARE ==
--- NOTE | 2019-09-09 17:42 | CT ---
EXAMINATION TYPE: CT brain wo con DATE OF EXAM: 09/09/2019 COMPARISON: 06/09/2019 HISTORY: confusion following posterior head injury CT DLP: 1266 mGycm Automated exposure control for dose reduction was used. Exam performed with no contrast. There is cerebral cortical atrophy. There is no mass effect nor midline shift. There is no sign of in tracranial hemorrhage. There is some patchy hypodensity in the periventricular white matter. There ar e small lacunar infarcts anterior right internal capsule. The calvarium is intact. IMPRESSION: Cerebral atrophy. Chronic small vessel ischemia. No change.
== END | disposition home or self-care (01) ==
LOC: RADCTMAIN 16:48
PROVIDERS: ATTEND Family Medicine
DX: G31.9 Degenerative disease of nervous system, unspecified (principal); I67.82 Cerebral ischemia
CPT/HCPCS: 70450

== ENCOUNTER → 2021-02-07 | Outpatient (CLI) | payer MEDICARE ==
--- NOTE | 2021-02-07 12:31 | ECHOF ---
Referral Reason:I35.1 Aortic insufficiency MEASUREMENTS -------- HEIGHT: 165.1 cm WEIGHT: 59.0 kg BP: RVIDd: 2.0 cm (< 3.3) IVSd: 1.6 cm (0.6 - 1.1) LVIDd: 3.5 cm (3.9 - 5.3) LVPWd: 2.0 cm (0.6 - 1.1) IVSs: 2.2 cm LVIDs: 2.5 cm LVPWs: 2.2 cm LAESV Index (A-L): 46.45 ml/m Ao Diam: 3.2 cm (2.0 - 3.7) AV Cusp: 0.9 cm (1.5 - 2.6) LA Diam: 3.5 cm (2.7 - 3.8) MV EXCURSION: 14.230 mm (> 18.000) MV EF SLOPE: 35 mm/s (70 - 150) EPSS: 0.8 cm MV E Lon: 1.34 m/s MV DecT: 425 ms MV A Lon: 1.42 m/s MV E/A Ratio: 0.95 AV maxP.50 mmHg AV meanP.72 mmHg AR PHT: 709 ms RAP: 5.00 mmHg RVSP: 15.73 mmHg FINDINGS -------- This was a technically good study. The left ventricular size is normal. There is moderate concentric left ventricular hypertrophy. O verall left ventricular systolic function is normal with, an EF between 55 - 60 %. The right ventricle is normal in size. LA is severely dilated >40 ml/m2 The right atrial size is normal. Interatrial and interventricular septum intact. Aortic valve is trileaflet and is severely thickened. There is severe aortic regurgitation. There is severe aortic stenosis present. Peak/mean gradient across the Aortic Valve is 54.50mmHg / 30.72 mmHg. Can't exclude possible Bicuspid Aov. The mitral valve leaflets are severely thickened. Moderate mitral annular calcification present. Moderate mitral regurgitation is present. The peak and mean MV gradients are 9.28mmHg 3.40mmHg as measured by doppler. Moderate mitral stenosis. The tricuspid valve appears structurally normal. Mild tricuspid regurgitation present. Right vent ricular systolic pressure is normal at < 35 mmHg. There is no pulmonic regurgitation present. The aortic root size is normal. Normal inferior vena cava with normal inspiratory collapse consistent with estimated right atrial pre ssure of 5 mmHg. There is no pericardial effusion. CONCLUSIONS -------- 1. The left ventricular size is normal. 2. There is moderate concentric left ventricular hypertrophy. 3. Overall left ventricular systolic function is normal with, an EF between 55 - 60 %. 4. LA is severely dilated >40 ml/m2 5. Aortic valve is trileaflet and is severely thickened. 6. There is severe aortic regurgitation. 7. There is severe aortic stenosis present. 8. Peak/mean gradient across the Aortic Valve is 54.50mmHg / 30.72mmHg. 9. Can't exclude possible Bicuspid Aov. 10. The mitral valve leaflets are severely thickened. 11. Moderate mitral annular calcification present. 12. Moderate mitral regurgitation is present. 13. The peak and mean MV gradients are 9.28mmHg 3.40mmHg as measured by doppler. 14. Moderate mitral stenosis. 15. Mild tricuspid regurgitation present. 16. There is no pericardial effusion. BIOINFORMATICIAN: Imelda Aparicio RDCS
--- NOTE | 2021-02-07 12:49 | US ---
EXAMINATION TYPE: US abdomen complete DATE OF EXAM: 02/07/2021 COMPARISON: NONE CLINICAL HISTORY: D64.89 OTHER SDPECIFIC ANEMIAS. EXAM MEASUREMENTS: Liver Length: 14.5 cm CBD: 0.6 cm Spleen: 10.5 cm Right Kidney: 10.4 x 4.9 x 4.4 cm Left Kidney: 4.0 x 4.0 cm Pancreas: visualized portions wnl, limited by overlying midline bowel gas Liver: wnl Gallbladder: surgically absent Evidence for sonographic Pappas's sign: no CBD: wnl Spleen: wnl Right Kidney: wnl Left Kidney: visualized portions wnl, partially obscured by overlying bowel gas Upper IVC: wnl Abd Aorta: atherosclerotic changes, distal portion obscured by overlying midline bowel gas The liver is homogenous. The intrahepatic portion of the IVC and proximal abdominal aorta are within normal limits. There is no evidence of cholelithiasis. Common bile duct is unremarkable. The visu alized portions of the pancreas are homogenous. The spleen is unremarkable. Kidneys are symmetric a nd free of hydronephrosis. No renal lesions are seen. IMPRESSION: Status post cholecystectomy. Atherosclerosis.
== END | disposition home or self-care (01) ==
LOC: RADUSWWP 10:29
PROVIDERS: ATTEND Family Medicine
DX: D64.89 Other specified anemias (principal); I70.0 Atherosclerosis of aorta; Z90.49 Acquired absence of other specified parts of digestive tract; I08.3 Combined rheumatic disorders of mitral, aortic and tricuspid valves
CPT/HCPCS: 76700; 93306

== ENCOUNTER → 2021-03-13 | Day surgery (SDC) | payer MEDICARE ==
[2021-03-10 09:02] VITALS: BMI 21.6
[~2021-03-13] MED LIST: ALPRAZolam 0.25 MG TAB PO PRN; ALPRAZolam 0.5 MG TAB PO PRN; ASPIRIN 325 MG TAB PO ONE; ASPIRIN 81 MG PO SCH; ATORVASTATIN 80 MG TAB PO SCH; BENZOCAINE SPRAY 1 CAN MUCOUS MEM ONE; GLIMEPIRIDE 2 MG TAB PO SCH; HEPARIN SODIUM 1,000 UN/ML (10ML VL) IV ONE; HEPARIN SODIUM 1,000 UN/ML (10ML VL) ONE; HEPARIN SODIUM,PORCINE 10,000 UNIT in SODIUM CHLORIDE 0.9% 1,000 ML IRRIGATION PRN; HEPARIN SODIUM,PORCINE 2,500 UNIT in SODIUM CHLORIDE 0.9% 250 ML IRRIGATION PRN; IOPAMIDOL-370 125ML BTL INJ ONE; IV FLUID CONTINUATION 1,000 ML IV ONE; LEVOTHYROXINE 100 MCG TAB PO SCH; LIDOCAINE 1% INJ 10MG/ML (20 ML MDV) ONE; LIDOCAINE 1% INJ 10MG/ML (20 ML MDV) SQ ONE; LINAGLIPTIN 5 MG TABLET PO SCH; MAGNESIUM OXIDE 400 MG TAB PO SCH; METOPROLOL TARTRATE 25 MG TAB PO ONE; METOPROLOL TARTRATE 25 MG TAB PO SCH; MIDAZOLAM 2 MG/2 ML VIAL IV ONE; NITROGLYCERIN SL TABS 0.4 MG TAB SUBLINGUAL PRN; POTASSIUM CHLORIDE ER 20 MEQ TAB.ER PO SCH; RX INFO: IV CONTRAST WAS GIVEN 1 EACH MISC MISCELLANE PRN; SODIUM CHLORIDE 0.9% 1,000 ML IV SCH; SODIUM CHLORIDE 0.9% 1,000 ML in EMPTY BAG 1 BAG IV ONE; SPIRONOLACTONE 25 MG TAB PO SCH; VENLAFAXINE HCL ER 75 MG CAP PO SCH; VERAPAMIL 2.5 MG/ML 2 ML AMP ONE; amLODIPine 5 MG TAB PO ONE; amLODIPine 5 MG TAB PO STA; fentaNYL (PF) 50 MCG/ML 2 ML AMP IV ONE; fentaNYL (PF) 50 MCG/ML 2 ML AMP ONE
[2021-03-13 06:34] VITALS: TEMP 96.9
[2021-03-13 06:38] LABS: Glucose,Whole Blood 85 mg/dL (75-99)
[2021-03-13] MEDS: BENZOCAINE SPRAY 1 CAN MUCOUS MEM ONE ×2 (07:12→07:14)
[2021-03-13 08:22] LABS: O2 Sat Blood Gas 90.8 %
[2021-03-13 08:25] LABS: O2 Sat Blood Gas 57.8 %
[2021-03-13 08:27] LABS: O2 Sat Blood Gas 57.4 %
--- NOTE | 2021-03-13 09:49 | ECHOT ---
TRANSESOPHAGEAL ECHOCARDIOGRAM INDICATION: Evaluation of aortic valve. PROCEDURE: After explaining the procedure to the patient, its risks and complications, her blood pressure, heart rate and oxygen saturation were monitored. The throat was sprayed with Cetacaine. She received 2 mg intravenous Versed, 50 mcg intravenous fentanyl. The probe was introduced into the esophagus without difficulty. Images were obtained. Following that, the probe was removed. There was no immediate complication. FINDINGS: Left atrial size is dilated. Left atrial appendage is normal. Left ventricular size and systolic function normal. Concentric left ventricular hypertrophy was noted. The aortic valve is a tricuspid valve with severe fibrocalcific changes and aortic valve area by planimetry is 0.6 cm2. Severe mitral anulus calcification was noted. The tricuspid valve is normal. Descending thoracic aorta showed mild atherosclerotic changes. No pericardial effusion was noted. Contrast bubble study revealed no shunting across the interatrial septum. Doppler pulse wave and color Doppler were obtained and revealed severe aortic regurgitation with moderate mitral regurgitation and mild tricuspid regurgitation. The peak gradient across the aortic valve was 48 minute mmHg with a mean of 29 mmHg. No shunting was noted by color Doppler study. CONCLUSION: 1. Dilated left atrium with normal appearance of left atrial appendage. 2. Normal left ventricular size and systolic function. 3. Severe aortic regurgitation with moderate to severe aortic stenosis. 4. Moderate mitral regurgitation. 5. Mild tricuspid regurgitation. 6. No shunting across the interatrial septum. MMODL / IJN: [id number] / MTDD
--- NOTE | 2021-03-13 10:20 | CC ---
CARDIAC CATHETERIZATION REPORT Mrs. Smalls is a 76-year-old female with known history of hypertension, hyperlipidemia and diabetes mellitus who presented with progressive symptoms of dyspnea. 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 In view of that, recommendation was made regarding cardiac catheterization. The procedure as well as its risks and complications were discussed with the patient, who was in full understanding and agreement. PROCEDURE: The patient was brought to lab tech in a fasting, semi-sedated state after receiving fentanyl and Benadryl and achieving a moderate conscious sedated state. Using Xylocaine anesthesia and Seldinger technique, a 6-Irish sheath was introduced in the right radial artery. Subsequently the intravenous catheter in the right basilic vein was exchanged for a 6-Irish sheath. Right heart catheterization was performed using a Brooks-Juan catheter. Multiple pressure and samples were obtained. Cardiac output by thermodilution was calculated. Following that, selective right and left coronary angiography was performed using 5-Irish, 3-1/2 bend, right and left Elyse catheters. Multiple views were taken of the arteries, including hemiaxial views. Following that, the 5-Irish right Leyse was used to cross the aortic valve. The left ventricular end-diastolic pressure was calculated. Following that, a 5-Irish tight pigtail catheter was introduced into the ascending aorta and an ascending aortogram was performed in the NESTOR view. Following that, catheter and sheath were removed. Hemostasis was obtained with deployment of a TR band. There was no immediate complication. Patient was returned to her room in stable condition. Of note, the patient received 3000 units of intravenous heparin as well as intra-arterial verapamil. FINDINGS: HEMODYNAMICS: Right atrial saturation 58%. Pulmonary artery saturation 57%. Arterial saturation 91%. Cardiac output by thermodilution 3.1 L/minute and by Dionte 3.8 L/minute. Aortic valve area calculated at between 0.58 and 0.77 cm2 and index between 0.35 and 0.43 cm2. Pulmonary artery systolic pressure of 32 with a diastolic of 10 and a mean of 18 mmHg. Pulmonary capillary wedge pressure: A-wave of 7, V-wave of 6 with a mean of 4 mmHg. Right ventricular systolic pressure of 34 with an end-diastolic of 2 mmHg. Right atrial A-wave of 2, V-wave of 2 with a mean of 2 mmHg. There was a peak gradient across the aortic valve. [id number] gradient is 31 mmHg. FLUOROSCOPY: There was severe calcification involving the mitral anulus, the aortic valve and the ascending aorta as well as the ostium of the right coronary artery. LEFT MAIN: This is a short-sized vessel, bifurcating into left circumflex, left anterior descending artery. Left main coronary artery has no evidence of high-grade stenosis. LEFT ANTERIOR DESCENDING ARTERY: This is a large-sized vessel reaching to the apex with a wrap around apex segment giving rise to two diagonal branches. The second one is moderate to large in caliber. The left anterior descending artery as well as its branches have no evidence of high-grade stenosis. LEFT CIRCUMFLEX: This is a large nondominant vessel giving rise to two obtuse marginal branches. The left circumflex as well as its branches have no evidence of obstructive coronary artery disease. RIGHT CORONARY ARTERY: There is a large-sized vessel, dominant, tortuous in the mid segment, calcified. The mid right coronary artery has 20% to 30% plaque. The rest of the vessel has no high-grade stenosis. AORTOGRAM: Aortogram was performed in the NESTOR view and revealed a tricuspid aortic valve, calcified, with 4+ aortic regurgitation. CONCLUSION: 1. Heavily calcified mitral anulus and aortic valve as well as ascending aorta. 2. 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 3. Severe aortic regurgitation. 4. Severe aortic stenosis. RECOMMENDATIONS: In view of findings and anatomy, I have recommended proceeding with aortic valve intervention with possible transaortic valve replacement. Those findings and recommendations were discussed with the patient and her family, who are in full understanding and agreement. Duration of the procedure was 40 minutes. MMODL / IJN: [id number] /
[2021-03-13 10:44] VITALS: RESP 16
[2021-03-13 11:21] VITALS: PULSE 55
[2021-03-13 11:59] VITALS: BP 155/67
== END | disposition home or self-care (01) ==
LOC: CATHCVL 05:57
PROVIDERS: ATTEND Internal Medicine Interventional Cardiology
DX: I08.3 Combined rheumatic disorders of mitral, aortic and tricuspid valves (principal); E11.9 Type 2 diabetes mellitus without complications; I10 Essential (primary) hypertension; E78.2 Mixed hyperlipidemia; F17.210 Nicotine dependence, cigarettes, uncomplicated; Z79.899 Other long term (current) drug therapy; Z79.82 Long term (current) use of aspirin
CPT/HCPCS: 93312; 93320; 93325; 93460; 93567; 85018; 82810; C1769 ×2; C1894; J2250; J2001; J3010; J1644; Q9967

== ENCOUNTER → 2021-04-04 | Outpatient (CLI) | payer MEDICARE ==
[2021-04-04 10:05] LABS: Partial Thromboplastin Time 25.8 sec (22.0-30.0); Prothrombin Time 10.3 sec (9.0-12.0)
[2021-04-04 10:14] LABS: ALT 27 U/L (4-34); AST 38 U/L (14-36); African American GFR (CKD) 87 (>60 ml/min/1.73 sqM); Albumin 4.2 g/dL (3.5-5.0); Albumin/Globulin Ratio 1.3; Alkaline Phosphatase 70 U/L (38-126); Anion Gap 8 mmol/L; Blood Urea Nitrogen 13 mg/dL (7-17); Calcium 9.9 mg/dL (8.4-10.2); Carbon Dioxide 27 mmol/L (22-30); Chloride 103 mmol/L (98-107); Globulin 3.3 g/dL; Glucose 110 mg/dL (74-99); Non-African American GFR(CKD) 75 (>60 ml/min/1.73 sqM); Potassium 5.2 mmol/L (3.5-5.1); Sodium 138 mmol/L (137-145); Total Bilirubin 0.5 mg/dL (0.2-1.3); Total Protein 7.5 g/dL (6.3-8.2)
[2021-04-04 14:16] LABS: Basophils # (A) 0.09 X 10*3/uL (0.00-0.10); Basophils % (A) 0.7 %; Eosinophils # (A) 0.22 X 10*3/uL (0.04-0.35); Eosinophils % (A) 1.7 %; HCT 42.2 % (37.2-46.3); HGB 13.5 g/dL (12.0-15.0); Lymphocytes # (A) 2.81 X 10*3/uL (0.90-5.00); Lymphocytes % (A) 22.2 %; MCH 30.3 pg (27.0-32.0); MCV 94.8 fL (80.0-97.0); Mean Platelet Volume 10.7 fL (9.5-12.2); Monocytes # (A) 1.23 X 10*3/uL (0.20-1.00); Monocytes % (A) 9.7 %; Neutrophils % (A) 65.1 %; Platelet Count 193 X 10*3/uL (140-440); RBC 4.45 X 10*6/uL (4.10-5.20); RDW 15.2 % (11.5-14.5); WBC 12.63 X 10*3/uL (4.50-10.00)
--- NOTE | 2021-04-04 14:44 | CT ---
EXAMINATION TYPE: CT TAVR Planning DATE OF EXAM: 04/04/2021 HISTORY: Nonrheumatic aortic (valve) insufficiency CT DLP: 1562.90 mGycm Automated Exposure Control for Dose Reduction was Utilized. CONTRAST: CT scan of the chest, abdomen and pelvis is performed with IV Contrast, patient injected with 100 ML mL of Isovue 370. Three-dimensional reconstructions performed on an alternate workstation and reviewe d. COMPARISON: CT chest on 2018 TECHNIQUE: Helical imaging obtained through the chest, abdomen and pelvis during arterial phase fransisco juancarlos administration of radiographic contrast intravenously. FINDINGS: See report from [facility] regarding preprocedural planning CHEST: Extensive atheromatous changes are present along the aorta, there are coronary artery calcific ations present Lower Neck and Thyroid: No significant findings Lungs: There are extensive emphysematous changes. Subpleural nodule may be postinflammatory in the le ft upper lobe, axial image 117 measuring 9 mm, stable. There are some associated interstitial changes within the lungs. Interlobular septal pleural thickening is present especially at the lung bases. Le ft-sided rib fracture noted at the third through fifth rib shows some deformity associated sclerosis consistent with probable healing Central Airway: No significant findings Pleura: No significant findings Pulmonary Arteries: No significant findings Heart and Pericardium: There is calcification present at the root of the aorta. Metallic densities pr esent at the level of the mitral valve. Lymph Nodes: No significant findings Mediastinum & Esophagus: There is some mild hilar adenopathy present ABDOMEN/PELVIS: Please note arterial phase of the imaging limits detailed evaluation of the solid abdominal organs. Liver: Patient is post cholecystectomy. Mildly nodular contour of the liver could possibly be indicat lizzy of underlying cirrhosis. Prominence of biliary system likely due to postcholecystectomy change. Spleen: No significant findings Kidneys: No significant findings Adrenal Glands: No significant findings Pancreas: No significant findings Gallbladder: No significant findings Bowel and Mesentery: No significant findings Lymph Nodes: No significant findings Urinary Bladder: No significant findings Pelvic Organs: No significant findings Other: Aorta and iliac vasculature shows atheromatous change. Other Lines/Tubes/Devices/Hardware: None IMPRESSION: Emphysema, interstitial lung disease, correlate for possible cirrhosis. Additional findin gs above.
[2021-04-04 19:02] LABS: Hemoglobin A1C 6.3 % (4.0-6.0)
[2021-04-05 08:33] LABS: ALT 27 U/L (8-44); AST 36 U/L (13-35); Albumin/Globulin Ratio 1.46 (1.60-3.17); Alkaline Phosphatase 70 U/L (41-126); Bilirubin, Conjugated <0.20 mg/dL (0.20-0.40); Chol/HDL Ratio 2.68; Cholesterol 153 mg/dL (0-200); Globulin 2.8 g/dL (1.6-3.3); LDL Cholesterol,Calculated 69.8 mg/dL (0.0-131.0); Magnesium 1.8 mg/dL (1.5-2.4); Total Bilirubin 0.4 mg/dL (0.2-1.2); Total Protein 6.9 g/dL (6.2-8.2)
== END | disposition home or self-care (01) ==
LOC: LABWHC1 08:34
PROVIDERS: ATTEND Thoracic Surgery (Cardiothoracic Vascular Surgery)
DX: Z01.818 Encounter for other preprocedural examination (principal); I35.0 Nonrheumatic aortic (valve) stenosis; E87.8 Other disorders of electrolyte and fluid balance, not elsewhere classified; E07.9 Disorder of thyroid, unspecified; E78.5 Hyperlipidemia, unspecified; E11.9 Type 2 diabetes mellitus without complications; N28.9 Disorder of kidney and ureter, unspecified; J43.9 Emphysema, unspecified; J84.9 Interstitial pulmonary disease, unspecified; R58 Hemorrhage, not elsewhere classified; R35.0 Frequency of micturition; Z79.899 Other long term (current) drug therapy
CPT/HCPCS: 94150; 83880; 80061; 80053; 84443; 82248; 83735; 85025; 85610; 85730; 83036; 71275; 36415 ×2; 74174; Q9967; 84439

== ENCOUNTER → 2021-04-14 | Outpatient (CLI) | payer MEDICARE ==
--- NOTE | 2021-04-14 18:45 | ECHOF ---
Referral Reason: MEASUREMENTS -------- HEIGHT: 165.1 cm WEIGHT: 62.1 kg BP: IVSd: 1.5 cm (0.6 - 1.1) LVIDd: 2.8 cm (3.9 - 5.3) LVPWd: 1.8 cm (0.6 - 1.1) IVSs: 2.0 cm LVIDs: 2.0 cm LVPWs: 2.0 cm LAESV Index (A-L): 45.61 ml/m Ao Diam: 3.2 cm (2.0 - 3.7) AV Cusp: 0.8 cm (1.5 - 2.6) LA Diam: 3.4 cm (2.7 - 3.8) MV EXCURSION: 9.371 mm (> 18.000) MV EF SLOPE: 23 mm/s (70 - 150) EPSS: 0.8 cm MV E Lon: 1.09 m/s MV DecT: 577 ms MV A Lon: 1.37 m/s MV E/A Ratio: 0.80 AV maxP.32 mmHg AV meanP.95 mmHg AR PHT: 698 ms RAP: 5.00 mmHg RVSP: 18.76 mmHg FINDINGS -------- Sinus rhythm. This was a technically adequate study. The left ventricular size is normal. There is severe concentric left ventricular hypertrophy. Ove rall left ventricular systolic function is normal with, an EF between 55 - 60 %. Increased LAP Grad e 2 Diastolic Dysfunction. The right ventricle is normal in size. LA is severely dilated >40 ml/m2 The right atrial size is normal. Aortic valve is trileaflet and is severely thickened. There is moderate aortic regurgitation. The re is severe aortic stenosis present. Peak/mean gradient across the Aortic Valve is 53.32mmHg / 35. 95mmHg. Severe mitral annular calcification present. Mild mitral regurgitation is present. The peak and mean MV gradients are 11.93mmHg 2.95mmHg as measured by doppler. The tricuspid valve appears structurally normal. Mild tricuspid regurgitation present. Right vent ricular systolic pressure is normal at < 35 mmHg. There is no pulmonic regurgitation present. The aortic root size is normal. Normal inferior vena cava with normal inspiratory collapse consistent with estimated right atrial pre ssure of 5 mmHg. There is a trivial pericardial effusion present. CONCLUSIONS -------- 1. There is severe concentric left ventricular hypertrophy. 2. Overall left ventricular systolic function is normal with, an EF between 55 - 60 %. 3. Increased LAP Grade 2 Diastolic Dysfunction. 4. LA is severely dilated >40 ml/m2 5. Aortic valve is trileaflet and is severely thickened. 6. There is moderate aortic regurgitation. 7. There is severe aortic stenosis present. 8. Peak/mean gradient across the Aortic Valve is 53.32mmHg / 35.95mmHg. 9. Severe mitral annular calcification present. 10. Mild mitral regurgitation is present. 11. The peak and mean MV gradients are 11.93mmHg 2.95mmHg as measured by doppler. 12. Mild tricuspid regurgitation present. 13. There is a trivial pericardial effusion present. REPAIRER VENEER SHEET: Imelda Aparicio RDCS
== END | disposition home or self-care (01) ==
LOC: RADECHMAIN 15:15
PROVIDERS: ATTEND Surgery
DX: I08.3 Combined rheumatic disorders of mitral, aortic and tricuspid valves (principal)
CPT/HCPCS: 93306

== ENCOUNTER 2021-08-24 16:34 | Inpatient (IN) | payer MEDICARE ==
--- NOTE | 2021-08-24 17:01 | ED ---
General Adult HPI - General Chief complaint: Extremity Injury, Lower Stated complaint: Hip pain Source: patient, EMS Mode of arrival: EMS Limitations: altered mental status, physical limitation - History of Present Illness Initial comments: Dictation was produced using [employer] dictation software. please excuse any grammatical, word or spelling errors. Chief Complaint: Patient is a 76-year-old presents to the emergency department with left hip injury History of Present Illness: 76-year-old female she is a limited historian. She is here in emergency department after called. She allegedly fell yesterday. She has dementia and unable to provide detailed history. She knows that she is here because she fell. Denies any complaints. EMS reports that patient had complained of left hip pain and that she has a gross deformity to her left hip. The ROS documented in this emergency department record has been reviewed and confirmed by me. Those systems with pertinent positive or negative responses have been documented in the HPI. All other systems are other negative and/or noncontributory. PHYSICAL EXAM: General Impression: Alert and oriented x2/4, not in acute distress HEENT: Normocephalic atraumatic, extra-ocular movements intact, pupils equal and reactive to light bilaterally, mucous membranes moist. Cardiovascular: Heart regular rate and rhythm Chest: Able to complete full sentences, no retractions, no tachypnea Abdomen: abdomen soft, non-tender, non-distended, no organomegaly Musculoskeletal: Pulses present and equal in all extremities, no peripheral edema, shortened left lower extremity, pain with manipulation at the left hip joint Motor: no focal deficits noted Neurological: CN II-XII grossly intact, no focal motor or sensory deficits noted Skin: Intact with no visualized rashes Psych: Normal affect and mood ED course: 76-year-old female with unwitnessed fall allegedly yesterday. Vital signs upon arrival are within acceptable limits. EKG interpretation: Ventricular rate 86, A. fib, per 178, QRS 102, QTc 402. no QTC prolongation, no ST or T-wave changes noted. EKG compared to 06/09/2019 showing no changes. Overall, this EKG is unremarkable Laboratory evaluation obtained. CBC, coag panel metabolic panel is unremarkable. Coag tests negative. Computed tomography scan head and C-spine shows no acute process. Chest x-rays negative. Pelvis x-ray shows acute left femoral neck/intertrochanteric fracture. Case discussed with orthopedic surgery who is one set patient's care. Medicine on consult for medical clearance for operative intervention. - Related Data Home Medications Medication Instructions Recorded Confirmed Venlafaxine HCl [Effexor XR] 75 mg PO DAILY 02/05/19 08/24/21 metFORMIN HCL [Glucophage] 1,000 mg PO BID 02/05/19 08/24/21 sitaGLIPtin [Januvia] 100 mg PO DAILY 02/05/19 08/24/21 Empagliflozin [Jardiance] 25 mg PO DAILY 06/09/19 08/24/21 Albuterol Sulfate [Ventolin HFA] 1 - 2 puff INHALATION RT-Q4H PRN 06/10/19 08/24/21 Spironolactone [Aldactone] 25 mg PO DAILY 06/10/19 08/24/21 Cholecalciferol (Vitamin D3) 125 mcg PO DAILY 03/10/21 08/24/21 [Vitamin D3 (125 MCG = 5,000 IU)] Fish Oil/Dha/Epa [Fish Oil 1,200 1 cap PO DAILY 03/10/21 08/24/21 mg Fish Oil] Glimepiride [Amaryl] 2 mg PO BID 03/13/21 08/24/21 Clopidogrel [Plavix] 75 mg PO DAILY 08/24/21 08/24/21 Levothyroxine Sodium [Synthroid] 125 mcg PO DAILY 08/24/21 08/24/21 Selenium 100 mcg PO DAILY 08/24/21 08/24/21 Zinc 50 mg PO DAILY 08/24/21 08/24/21 Previous Rx's Medication Instructions Recorded Atorvastatin [Lipitor] 80 mg PO DAILY 30 Days #30 tab 06/12/19 Metoprolol Tartrate [Lopressor] 25 mg PO BID 30 Days #60 tab 06/12/19 Magnesium 200 mg PO DAILY #15 tablet 06/20/19 Allergies Allergy/AdvReac Type Severity Reaction Status Date / Time No Known Allergies Allergy Verified 08/24/21 17:44 Review of Systems ROS Statement: Those systems with pertinent positive or pertinent negative responses have been documented in the HPI. ROS Other: All systems not noted in ROS Statement are negative. Past Medical History Past Medical History: COPD, Dementia, Diabetes Mellitus, Hyperlipidemia, Hypertension, Memory Impairment, Thyroid Disorder Additional Past Medical History / Comment(s): NIDDM type II, bronchitis, hypothyroid, anemia with . History of Any Multi-Drug Resistant Organisms: None Reported Past Surgical History: Cholecystectomy, Tonsillectomy, Tubal Ligation Past Anesthesia/Blood Transfusion Reactions: No Reported Reaction, Motion Sickness Past Psychological History: Depression Smoking Status: Current every day smoker Past Alcohol Use History: None Reported Past Drug Use History: None Reported - Past Family History Father Family Medical History: No Reported History Additional Family Medical History / Comment(s): Father lived into his 80s Mother Family Medical History: Myocardial Infarction ([place]) Additional Family Medical History / Comment(s): Mother at the age of 56yrs pt believes was from a [place] General Exam Limitations: altered mental status, physical limitation Course Vital Signs 08/24/21 08/24/21 08/24/21 16:42 16:59 19:00 Temperature 97.7 F Pulse Rate 85 76 78 Respiratory 16 16 18 Rate Blood Pressure 190/70 166/73 165/81 O2 Sat by Pulse 94 L 93 L 96 Oximetry Medical Decision Making - Lab Data Result diagrams: 08/24/21 16:59 08/24/21 16:59 Lab Results 08/24/21 08/24/21 08/24/21 Range/Units 16:59 16:59 16:59 WBC 8.3 (3.8-10.6) k/uL RBC 3.37 L (3.80-5.40) m/uL Hgb 11.5 (11.4-16.0) gm/dL Hct 35.2 (34.0-46.0) % MCV 104.5 H (80.0-100.0) fL MCH 34.2 (25.0-35.0) pg MCHC 32.7 (31.0-37.0) g/dL RDW 14.6 (11.5-15.5) % Plt Count 124 L (150-450) k/uL MPV 8.0 Neutrophils % 78 % Lymphocytes % 14 % Monocytes % 7 % Eosinophils % 0 % Basophils % 0 % Neutrophils # 6.5 (1.3-7.7) k/uL Lymphocytes # 1.1 (1.0-4.8) k/uL Monocytes # 0.5 (0-1.0) k/uL Eosinophils # 0.0 (0-0.7) k/uL Basophils # 0.0 (0-0.2) k/uL Macrocytosis Moderate PT 11.0 (9.0-12.0) sec INR 1.0 (<1.2) APTT 24.1 (22.0-30.0) sec Sodium 140 (137-145) mmol/L Potassium 3.8 (3.5-5.1) mmol/L Chloride 110 H (98-107) mmol/L Carbon Dioxide 21 L (22-30) mmol/L Anion Gap 9 mmol/L BUN 18 H (7-17) mg/dL Creatinine 0.81 (0.52-1.04) mg/dL Est GFR (CKD-EPI)AfAm 82 (>60 ml/min/1.73 sqM) Est GFR (CKD-EPI)NonAf 71 (>60 ml/min/1.73 sqM) Glucose 128 H (74-99) mg/dL Calcium 8.6 (8.4-10.2) mg/dL Magnesium 1.8 (1.6-2.3) mg/dL Total Bilirubin 0.9 (0.2-1.3) mg/dL AST 29 (14-36) U/L ALT 20 (4-34) U/L Alkaline Phosphatase 62 (38-126) U/L Troponin I (0.000-0.034) ng/mL Total Protein 6.9 (6.3-8.2) g/dL Albumin 3.9 (3.5-5.0) g/dL 08/24/21 Range/Units 16:59 WBC (3.8-10.6) k/uL RBC (3.80-5.40) m/uL Hgb (11.4-16.0) gm/dL Hct (34.0-46.0) % MCV (80.0-100.0) fL MCH (25.0-35.0) pg MCHC (31.0-37.0) g/dL RDW (11.5-15.5) % Plt Count (150-450) k/uL MPV Neutrophils % % Lymphocytes % % Monocytes % % Eosinophils % % Basophils % % Neutrophils # (1.3-7.7) k/uL Lymphocytes # (1.0-4.8) k/uL Monocytes # (0-1.0) k/uL Eosinophils # (0-0.7) k/uL Basophils # (0-0.2) k/uL Macrocytosis PT (9.0-12.0) sec INR (<1.2) APTT (22.0-30.0) sec Sodium (137-145) mmol/L Potassium (3.5-5.1) mmol/L Chloride (98-107) mmol/L Carbon Dioxide (22-30) mmol/L Anion Gap mmol/L BUN (7-17) mg/dL Creatinine (0.52-1.04) mg/dL Est GFR (CKD-EPI)AfAm (>60 ml/min/1.73 sqM) Est GFR (CKD-EPI)NonAf (>60 ml/min/1.73 sqM) Glucose (74-99) mg/dL Calcium (8.4-10.2) mg/dL Magnesium (1.6-2.3) mg/dL Total Bilirubin (0.2-1.3) mg/dL AST (14-36) U/L ALT (4-34) U/L Alkaline Phosphatase (38-126) U/L Troponin I <0.012 (0.000-0.034) ng/mL Total Protein (6.3-8.2) g/dL Albumin (3.5-5.0) g/dL Disposition Clinical Impression: Hip fracture Disposition: ADMITTED IP TO THIS [facility] Condition: Fair
[2021-08-24 17:12] LABS: Basophils % (A) 0 %; Eosinophils % (A) 0 %; HCT 35.2 % (34.0-46.0); HGB 11.5 gm/dL (11.4-16.0); Lymphocytes # (A) 1.1 k/uL (1.0-4.8); Lymphocytes % (A) 14 %; MCH 34.2 pg (25.0-35.0); MCHC 32.7 g/dL (31.0-37.0); MCV 104.5 fL (80.0-100.0); Macrocytosis Moderate; Monocytes # (A) 0.5 k/uL (0-1.0); Monocytes % (A) 7 %; Neutrophils # (A) 6.5 k/uL (1.3-7.7); Neutrophils % (A) 78 %; Platelet Count 124 k/uL (150-450); RBC 3.37 m/uL (3.80-5.40); RDW 14.6 % (11.5-15.5); WBC 8.3 k/uL (3.8-10.6)
[2021-08-24 17:19] LABS: Albumin 3.9 g/dL (3.5-5.0); Calcium 8.6 mg/dL (8.4-10.2); Magnesium 1.8 mg/dL (1.6-2.3); Potassium 3.8 mmol/L (3.5-5.1); Total Bilirubin 0.9 mg/dL (0.2-1.3); Total Protein 6.9 g/dL (6.3-8.2)
[2021-08-24 17:23] LABS: Partial Thromboplastin Time 24.1 sec (22.0-30.0)
--- NOTE | 2021-08-24 17:54 | XR ---
EXAMINATION TYPE: XR Hip LT and AP Pelvis DATE OF EXAM: 08/24/2021 5:20 PM INDICATION: Patient age:Female; 76 years old; Reason for study: fall; COMPARISON: None. TECHNIQUE: The left hip was examined in the frontal and lateral projections. FINDINGS: Acute fracture through the base of the left femoral neck/intertrochanteric region. Multilev el degenerative disc disease changes through the spine. Calcified arterial vasculature. IMPRESSION: Acute left femoral neck/intertrochanteric fracture.
--- NOTE | 2021-08-24 18:06 | XR ---
EXAMINATION TYPE: XR chest 1V portable DATE OF EXAM: 08/24/2021 5:20 PM COMPARISON:Multiple radiographs, with the most recent on 06/09/2019 TECHNIQUE: Frontal view of the chest. CLINICAL INDICATION:Female, 76 years old with history of fall; FINDINGS: Lungs/Pleura: There is flattening of the diaphragm with increased lucency of the lungs. No evidence o f pneumothorax, pleural effusion. Superimposed consolidation changes felt to be present. Pulmonary vascularity: Pulmonary vascular congestion. Heart/mediastinum: Cardiomediastinal silhouette is enlarged and stable. Musculoskeletal: There are new rib deformities seen on the left. IMPRESSION: 1. Multiple new left sided rib fractures. 2. Pulmonary vascular congestion superimposed on COPD changes. Consider correlation with serum BNP fo r congestive heart failure.
[2021-08-24] MEDS ORDERED: ACETAMINOPHEN TAB 325 MG TAB PO PRN (18:59)
[2021-08-24] MEDS ORDERED: NALOXONE 0.4 MG/ML 1 ML VIAL IV PRN (18:59)
[2021-08-24] MEDS: MORPHINE SULFATE 4 MG/ML SYRINGE IV PRN (19:24)
[2021-08-24] MEDS: SODIUM CHLORIDE 0.9% 1,000 ML IV SCH (19:24)
--- NOTE | 2021-08-24 19:52 | CT ---
EXAMINATION TYPE: CT brain cspine wo con CT DLP: 1428.1 mGycm, Automated exposure control for dose reduction was used. DATE OF EXAM: 08/24/2021 7:27 PM COMPARISON: None. CLINICAL INDICATION:Female, 76 years old with history of fall; TECHNIQUE: Brain: Multiple axial CT images of the brain were obtained without IV contrast. Cspine: Axial CT images from the skull base to the inferior aspect of T2 we obtained without intraven ous contrast. Coronal and sagittal reformatted images were also reviewed. FINDINGS: Brain: Extra-axial spaces: No abnormal extra-axial fluid collections. Ventricular system: Dilatation in proportion to cerebral atrophy. Cerebral parenchyma: Cerebral atrophy. No acute intraparenchymal hemorrhage or mass effect. The estrada -white junction is well differentiated. Scattered hypoattenuating areas are seen within the white mat ter. Cerebellum: Unremarkable. Mass effect: No evidence of midline shift. Intracranial vasculature: Atherosclerotic calcifications of the intracranial vessels. Soft tissues: Normal. Calvarium/osseous structures: No depressed skull fracture. Paranasal sinuses and mastoid air cells: Bilateral mastoid effusions are present. Visualized orbits: Bilateral aphakia Cervical spine: Fracture: None. Osseous structures: Multilevel degenerative disc disease changes with endplate spurring and disc oste ophyte complex's. Vertebral alignment: Within normal limits. Spinal canal/Neural Foramina: No evidence of significant spinal canal narrowing. No evidence of signi ficant neural foramina narrowing. Neck soft tissues: Prevertebral soft tissues are within normal limits. Other: The airway is patent. The lung apices are clear. IMPRESSION: 1. No acute intracranial process. 2. Nonspecific white matter changes, likely secondary to chronic small vessel ischemic disease. 3. No evidence of cervical spine fracture. 4. Mild multilevel degenerative disc disease. 5. Mastoid effusions.
[2021-08-24 21:26] LABS: Bacteria,Urine Many /hpf; Mucus,Urine Moderate /hpf; RBC,Urine 60 /hpf (0-5); Squamous Epithelial Cell,Urine 120 /hpf (0-4); WBC,Urine >182 /hpf (0-5)
[2021-08-24 21:42] LABS: Appearance,Urine Turbid (Clear); Bilirubin,Urine Negative (Negative); Blood,Urine Trace (Negative); Color,Urine Light Yellow; Glucose,Urine (UA) 3+ (Negative); Ketones,Urine Negative (Negative); Leukocyte Esterase,Urine Large (Negative); Nitrite,Urine Negative (Negative); Protein,Urine Trace (Negative); Specific Gravity,Urine 1.011 (1.001-1.035); Urobilinogen,Urine <2.0 mg/dL (<2.0)
[2021-08-24 22:44] LABS: Glucose,Whole Blood 119 mg/dL (75-99)
[2021-08-25] MEDS: MORPHINE SULFATE 4 MG/ML SYRINGE IV PRN (02:57)
[2021-08-25] MEDS: SODIUM CHLORIDE 0.9% 1,000 ML IV SCH (05:26)
[2021-08-25 10:18] LABS: Glucose,Whole Blood 126 mg/dL (75-99)
--- NOTE | 2021-08-25 10:30 | P.HPOR ---
History of Present Illness H&P Date: 08/25/21 This patient is a 76-year-old female with a past medical history of dementia, COPD, hypertension, hyperlipidemia, diabetes, CVA that presented to [facility] emergency department on 08/24/21 with complaints of left hip pain following a fall at home. The patient is confused at baseline and all history is obtained from nursing and the chart. Per the chart, the patient fell yesterday at home. Her called EMS and the patient was transported to [facility] emergency department. X-rays of the left hip and pelvis in the emergency department revealed a left hip fracture. The patient was admitted under the care Dr. Reese with a consult placed to internal medicine for preoperative medical clearance. Patient is seen and examined bedside this morning. She has no complaints of pa in. She is confused and is unable to provide history on her fall. Per nursing, patient has not taken a dose of Plavix since 08/22/21. Vital signs stable. Past Medical History Past Medical History: COPD, Dementia, Diabetes Mellitus, Hyperlipidemia, Hypertension, Memory Impairment, Thyroid Disorder Additional Past Medical History / Comment(s): NIDDM type II, bronchitis, hypothyroid, anemia with . History of Any Multi-Drug Resistant Organisms: None Reported Past Surgical History: Cholecystectomy, Tonsillectomy, Tubal Ligation Past Anesthesia/Blood Transfusion Reactions: No Reported Reaction, Motion Sickness Past Psychological History: Depression Additional Psychological History / Comment(s): Pt resides with her spouse. She uses no assistive device. She drives. She has a glucometer and a nebulizer. Smoking Status: Current every day smoker Past Alcohol Use History: None Reported Additional Past Alcohol Use History / Comment(s): Pt started smoking in 1964 and is a 2 ppd smoker. Past Drug Use History: None Reported - Past Family History Father Family Medical History: No Reported History Additional Family Medical History / Comment(s): Father lived into his 80s Mother Family Medical History: Myocardial Infarction ([place]) Additional Family Medical History / Comment(s): Mother at the age of 56yrs pt believes was from a [place] Medications and Allergies Home Medications Medication Instructions Recorded Confirmed Type Venlafaxine HCl [Effexor XR] 75 mg PO DAILY 02/05/19 08/24/21 History metFORMIN HCL [Glucophage] 1,000 mg PO BID 02/05/19 08/24/21 History sitaGLIPtin [Januvia] 100 mg PO DAILY 02/05/19 08/24/21 History Empagliflozin [Jardiance] 25 mg PO DAILY 06/09/19 08/24/21 History Albuterol Sulfate [Ventolin HFA] 1 - 2 puff INHALATION RT-Q4H PRN 06/10/19 08/24/21 History Spironolactone [Aldactone] 25 mg PO DAILY 06/10/19 08/24/21 History Atorvastatin [Lipitor] 80 mg PO DAILY 30 Days #30 tab 06/12/19 08/24/21 Rx Metoprolol Tartrate [Lopressor] 25 mg PO BID 30 Days #60 tab 06/12/19 08/24/21 Rx Magnesium 200 mg PO DAILY #15 tablet 06/20/19 08/24/21 Rx Cholecalciferol (Vitamin D3) 125 mcg PO DAILY 03/10/21 08/24/21 History [Vitamin D3 (125 MCG = 5,000 IU)] Fish Oil/Dha/Epa [Fish Oil 1,200 1 cap PO DAILY 03/10/21 08/24/21 History mg Fish Oil] Glimepiride [Amaryl] 2 mg PO BID 03/13/21 08/24/21 History Clopidogrel [Plavix] 75 mg PO DAILY 08/24/21 08/24/21 History Levothyroxine Sodium [Synthroid] 125 mcg PO DAILY 08/24/21 08/24/21 History Selenium 100 mcg PO DAILY 08/24/21 08/24/21 History Zinc 50 mg PO DAILY 08/24/21 08/24/21 History Allergies Allergy/AdvReac Type Severity Reaction Status Date / Time No Known Allergies Allergy Verified 08/24/21 17:44 Physical Examination On examination, the patient is sitting up in bed in no apparent distress. She is alert and oriented 2. She answers questions appropriately. Her head appears normocephalic and atraumatic. Her breathing appears unlabored. On inspection of the bilateral upper extremities, there are no obvious deformities or signs of trauma. On inspection of the right lower extremity, there were no obvious deformities or signs of trauma. No pain with passive [id number] of the right hip. On inspection of the left hip, there are no abrasions or lacerations. No open wounds. No pain with palpation of the left knee, lower leg, ankle, foot. There is moderate pain with any attempt at passive [id number] of the left hip. Motor and sensory function is intact of the left lower extremity. The left lower extremity is warm and well perfused with brisk capillary refill distally. Calves are soft and non-tender to palpation bilaterally. Results Left hip and pelvis x-ray 08/24/21: Left basicervical hip fracture. CT head and cervical spine 08/24/21: No acute intracranial process. No acute fracture of C-spine. - Labs Labs: Abnormal Lab Results - Last 24 Hours (Table) 08/24/21 08/24/21 08/24/21 Range/Units 16:59 16:59 20:55 RBC 3.37 L (3.80-5.40) m/uL MCV 104.5 H (80.0-100.0) fL Plt Count 124 L (150-450) k/uL Chloride 110 H (98-107) mmol/L Carbon Dioxide 21 L (22-30) mmol/L BUN 18 H (7-17) mg/dL Glucose 128 H (74-99) mg/dL POC Glucose (mg/dL) (75-99) mg/dL Urine Appearance Turbid H (Clear) Urine Protein Trace H (Negative) Urine Glucose (UA) 3+ H (Negative) Urine Blood Trace H (Negative) Ur Leukocyte Esterase Large H (Negative) Urine RBC 60 H (0-5) /hpf Urine WBC >182 H (0-5) /hpf Urine WBC Clumps Many H (None) /hpf Ur Squamous Epith Cells 120 H (0-4) /hpf Urine Bacteria Many H (None) /hpf Urine Mucus Moderate H (None) /hpf 08/24/21 08/25/21 Range/Units 22:42 10:17 RBC (3.80-5.40) m/uL MCV (80.0-100.0) fL Plt Count (150-450) k/uL Chloride (98-107) mmol/L Carbon Dioxide (22-30) mmol/L BUN (7-17) mg/dL Glucose (74-99) mg/dL POC Glucose (mg/dL) 119 H 126 H (75-99) mg/dL Urine Appearance (Clear) Urine Protein (Negative) Urine Glucose (UA) (Negative) Urine Blood (Negative) Ur Leukocyte Esterase (Negative) Urine RBC (0-5) /hpf Urine WBC (0-5) /hpf Urine WBC Clumps (None) /hpf Ur Squamous Epith Cells (0-4) /hpf Urine Bacteria (None) /hpf Urine Mucus (None) /hpf H & H 08/24/21 Range/Units 16:59 Hgb 11.5 (11.4-16.0) gm/dL Hct 35.2 (34.0-46.0) % Coagulation 08/24/21 Range/Units 16:59 INR 1.0 (<1.2) Result Diagrams: 08/24/21 16:59 08/24/21 16:59 Assessment and Plan Assessment: Left basicervical femoral neck fracture Plan: - The clinical and imaging findings were discussed with the patient and the patient's nurse. The patient was discussed in detail with Dr. Franklin. Recommend operative fixation of the patient's left hip fracture with insertion of a short intramedullary hip screw this afternoon, pending medical clearance and consent. - Bedrest. Strict nonweightbearing left lower extremity. - Pain management as needed. - Internal medicine has been consulted for pre-operative medical clearance. - NPO diet.
[2021-08-25 11:13] LABS: Glucose,Whole Blood 125 mg/dL (75-99)
--- NOTE | 2021-08-25 12:40 | P.CRDCN ---
History of Present Illness History of present illness: HISTORY OF PRESENTING ILLNESS This is a pleasant 76-year-old female past medical history significant for dementia, severe aortic regurgitation, severe aortic stenosis, nonobstructive coronary artery disease, dyslipidemia, type 2 diabetes, hypertension. She follows in the office with Dr. Shah. We have been asked to see in consultation for cardiac clearance. Patient presents emergency department after a fall at home. X-ray revealed acute left femoral neck/intertrochanteric fracture, m ultiple new left sided rib fractures. Orthopedic surgery has evaluated the patient and recommended operative fixation of the patient's left hip fracture with insertion of a short intramedullary hip screw today. Patient seen and examined at bedside, no acute distress. She is alert, not oriented. She is unable to voice how the fall happened. Of note, patient has been evaluated by Dr. Dumont/Dr. Tong and cardiothoracic surgery DrAlex wellington and Dr. Bowden. Patient is not a candidate for TAVR or open heart surgery. DIAGNOSTICS EKG reveals sinus rhythm, PVC, heart rate 83, non specific ST-T wave abnormalities 03/2021 Echocardiogram revealed an EF of 5560 percent, increased grade 2 diastolic dysfunction, LA severely dilated, severe aortic stenosis with peak/mean gradient of 53 mmHg/36 mmHg, mitral regurgitation, mild tricuspid regurgitation 02/2021 JOYCELYN revealed normal left ventricular size and function, severe aortic regurgitation with moderate to severe aortic stenosis, no shunting, dilated left atrium normal appearance of the left atrial appendage, mild tricuspid regurgitation 02/2021 cardiac catheterization revealed heavily calcified mitral annulus and aortic valve as well as ascending aorta, mild obstructive disease in RCA, severe aortic regurgitation, severe aortic stenosis, peak to peak gradient is 31 mmHg Laboratory reviewed, WBC 8.3, hemoglobin 11.5, platelets 124, sodium 140, potassium 3.8, BUN 18, serum creatinine 0.8, troponin negative Current home cardiac medications include Lopressor 25 mg twice a day, atorvastatin 80 mg daily, spironolactone 25 mg daily, Januvia, Plavix 75mg daily, Jardiance REVIEW OF SYSTEMS At the time of my exam: Unable to get accurate review of systems due to mental status PHYSICAL EXAMINATION Blood pressure 134/73, heart rate 94, afebrile, oxygen saturations 94% on 2 L nasal cannula CONSTITUTIONAL: No apparent distress. HEENT: Head is normocephalic. Pupils are equal, round. Sclerae anicteric. Mucous membranes of the mouth are dry. No JVD. CHEST EXAMINATION: Lungs are clear to auscultation. No chest wall tenderness is noted on palpation or with deep breathing. HEART EXAMINATION: Regular rate and rhythm. S1, S2 heard. Systolic ejection murmur and diastolic ejection murmur noted ABDOMEN: Soft, nontender. Positive bowel sounds. EXTREMITIES: 2+ peripheral pulses, no lower extremity edema and no calf tenderness. NEUROLOGIC EXAMINATION: Patient is awake, alert, not oriented ASSESSMENT Acute left femoral neck/intertrochanteric fracture Severe aortic stenosis Severe aortic regurgitation Nonobstructive coronary artery disease Dyslipidemia Type 2 diabetes Hypertension PLAN From a cardiology perspective, patient is at very high risk of surgery. Spoke with patient's daughter Yaneth about the patient's high risk for surgery. Risk and benefits of surgery was discussed. Patient's daughter spoke with her father and they would like to proceed with surgery at this time. Nurse practitioner note has been reviewed by physician. Signing provider agrees with the documented findings, assessment, and plan of care. Past Medical History Past Medical History: COPD, Dementia, Diabetes Mellitus, Hyperlipidemia, Hypertension, Memory Impairment, Thyroid Disorder Additional Past Medical History / Comment(s): NIDDM type II, bronchitis, hypothyroid, anemia with . History of Any Multi-Drug Resistant Organisms: None Reported Past Surgical History: Cholecystectomy, Tonsillectomy, Tubal Ligation Past Anesthesia/Blood Transfusion Reactions: No Reported Reaction, Motion Sickness Past Psychological History: Depression Additional Psychological History / Comment(s): Pt resides with her spouse. She uses no assistive device. She drives. She has a glucometer and a nebulizer. Smoking Status: Current every day smoker Past Alcohol Use History: None Reported Additional Past Alcohol Use History / Comment(s): Pt started smoking in 1964 and is a 2 ppd smoker. Past Drug Use History: None Reported - Past Family History Father Family Medical History: No Reported History Additional Family Medical History / Comment(s): Father lived into his 80s Mother Family Medical History: Myocardial Infarction ([place]) Additional Family Medical History / Comment(s): Mother at the age of 56yrs pt believes was from a [place] Medications and Allergies Home Medications Medication Instructions Recorded Confirmed Type Venlafaxine HCl [Effexor XR] 75 mg PO DAILY 02/05/19 08/24/21 History metFORMIN HCL [Glucophage] 1,000 mg PO BID 02/05/19 08/24/21 History sitaGLIPtin [Januvia] 100 mg PO DAILY 02/05/19 08/24/21 History Empagliflozin [Jardiance] 25 mg PO DAILY 06/09/19 08/24/21 History Albuterol Sulfate [Ventolin HFA] 1 - 2 puff INHALATION RT-Q4H PRN 06/10/19 08/24/21 History Spironolactone [Aldactone] 25 mg PO DAILY 06/10/19 08/24/21 History Atorvastatin [Lipitor] 80 mg PO DAILY 30 Days #30 tab 06/12/19 08/24/21 Rx Metoprolol Tartrate [Lopressor] 25 mg PO BID 30 Days #60 tab 06/12/19 08/24/21 Rx Magnesium 200 mg PO DAILY #15 tablet 06/20/19 08/24/21 Rx Cholecalciferol (Vitamin D3) 125 mcg PO DAILY 03/10/21 08/24/21 History [Vitamin D3 (125 MCG = 5,000 IU)] Fish Oil/Dha/Epa [Fish Oil 1,200 1 cap PO DAILY 03/10/21 08/24/21 History mg Fish Oil] Glimepiride [Amaryl] 2 mg PO BID 03/13/21 08/24/21 History Clopidogrel [Plavix] 75 mg PO DAILY 08/24/21 08/24/21 History Levothyroxine Sodium [Synthroid] 125 mcg PO DAILY 08/24/21 08/24/21 History Selenium 100 mcg PO DAILY 08/24/21 08/24/21 History Zinc 50 mg PO DAILY 08/24/21 08/24/21 History Allergies Allergy/AdvReac Type Severity Reaction Status Date / Time No Known Allergies Allergy Verified 08/24/21 17:44 Physical Exam Vitals: Vital Signs Temp Pulse Pulse Resp BP BP Pulse Ox 08/25/21 03:39 94 134/73 08/25/21 02:59 94 L 08/25/21 02:50 97.7 F 91 20 170/73 87 L 08/25/21 00:07 88 152/72 08/24/21 22:15 98.0 F 88 17 219/80 95 08/24/21 19:00 78 18 165/81 96 08/24/21 16:59 76 16 166/73 93 L 08/24/21 16:42 97.7 F 85 16 190/70 94 L Intake and Output 08/24/21 08/25/21 08/25/21 22:59 06:59 14:59 Intake Total 600 Output Total 200 Balance 400 Intake: Intake, IV Titration 600 Amount Sodium Chloride 0.9% 1, 600 000 ml @ 75 mls/hr IV . [id number] ON LICENSE OF [facility] Rx#:[id number] Output: Urine 200 Uretheral (Barrett) 200 Other: Voiding Method Indwelling Catheter Weight 60.5 kg Results 08/24/21 16:59 08/24/21 16:59 Cardiac Enzymes 08/24/21 08/24/21 Range/Units 16:59 16:59 AST 29 (14-36) U/L Troponin I <0.012 (0.000-0.034) ng/mL Coagulation 08/24/21 Range/Units 16:59 PT 11.0 (9.0-12.0) sec APTT 24.1 (22.0-30.0) sec CBC 08/24/21 Range/Units 16:59 WBC 8.3 (3.8-10.6) k/uL RBC 3.37 L (3.80-5.40) m/uL Hgb 11.5 (11.4-16.0) gm/dL Hct 35.2 (34.0-46.0) % Plt Count 124 L (150-450) k/uL Comprehensive Metabolic Panel 08/24/21 Range/Units 16:59 Sodium 140 (137-145) mmol/L Potassium 3.8 (3.5-5.1) mmol/L Chloride 110 H (98-107) mmol/L Carbon Dioxide 21 L (22-30) mmol/L BUN 18 H (7-17) mg/dL Creatinine 0.81 (0.52-1.04) mg/dL Glucose 128 H (74-99) mg/dL Calcium 8.6 (8.4-10.2) mg/dL AST 29 (14-36) U/L ALT 20 (4-34) U/L Alkaline Phosphatase 62 (38-126) U/L Total Protein 6.9 (6.3-8.2) g/dL Albumin 3.9 (3.5-5.0) g/dL Current Medications Generic Name Dose Route Start Last Admin Trade Name Freq PRN Reason Stop Dose Admin Acetaminophen 650 mg 08/24/21 18:59 Acetaminophen Tab 325 Mg Tab PO Q6HR PRN Mild Pain or Fever > 100.5 Albuterol Sulfate 2.5 mg 08/25/21 10:31 Albuterol Nebulized 2.5 Mg/3 Ml INHALATION RT-Q4H PRN Shortness Of Breath Atorvastatin Calcium 80 mg 08/26/21 09:00 Atorvastatin 80 Mg Tab PO DAILY GEORGE Cholecalciferol 125 mcg 08/26/21 09:00 Cholecalciferol 125 Mcg (5000 Iu) Tablet PO DAILY GEORGE Sodium Chloride 1,000 mls @ 75 mls/hr 08/24/21 19:00 08/25/21 05:26 Saline 0.9% IV 75 mls/hr .[id number] GEORGE Administration Cefazolin Sodium 2 gm/ Sodium 50 mls @ 100 mls/hr 08/25/21 10:18 Chloride IVPB 08/26/21 04:18 ONCE PRN Pre-Op Levothyroxine Sodium 125 mcg 08/26/21 06:30 Levothyroxine 125 Mcg Tab PO DAILY@0630 ON LICENSE OF [facility] Metoprolol Tartrate 25 mg 08/25/21 21:00 Metoprolol Tartrate 25 Mg Tab PO BID ON LICENSE OF [facility] Morphine Sulfate 4 mg 08/24/21 18:59 08/25/21 02:57 Morphine Sulfate 4 Mg/Ml Syringe IV 4 mg Q4HR PRN Administration Severe Pain Naloxone HCl 0.2 mg 08/24/21 18:59 Naloxone 0.4 Mg/Ml 1 Ml Vial IV Q2M PRN Opioid Reversal Zinc Sulfate 220 mg 08/26/21 09:00 Zinc Sulfate 220 Mg Cap PO DAILY ON LICENSE OF [facility] Intake and Output 08/24/21 08/25/21 08/25/21 22:59 06:59 14:59 Intake Total 600 Output Total 200 Balance 400 Intake: Intake, IV Titration 600 Amount Sodium Chloride 0.9% 1, 600 000 ml @ 75 mls/hr IV . [id number] ON LICENSE OF [facility] Rx#:[id number] Output: Urine 200 Uretheral (Barrett) 200 Other: Voiding Method Indwelling Catheter Weight 60.5 kg 08/24/21 16:59 08/24/21 16:59
--- NOTE | 2021-08-25 13:23 | P.HPIM ---
History of Present Illness 76-year-old female was admitted after a hip fracture patient cannot provide any history from unable to reach any of the family members. Patient had a fall and if left femoral neck fracture intertrochanteric fracture. Patient appears to have history of dementia patient is unable to provide any history to me patient appears to be alert oriented times probably 1. Hyperfunctional it is not clear appears to be less than 4 mets, lives with her who takes care of her. EKG did not show any acute ST-T wave changes. Echocardiogram in month of March 2021 revealed ejection fraction of 55-60% grade 2 diastolic dysfunction with a severely dilated LA and severe aortic stenosis with gradient of 53 and close the ear aortic valve. Patient does have history of her diabetes with us. Patient was evaluated by cardiac thoracic surgery recently and it was decided patient is not a candidate for TAVR or open heart surgery for severity of stenosis. Because of the severity of stenosis her prognosis is extremely poor. I consulted cardiology for cardiac clearance. REVIEW OF SYSTEMS: Unable to obtain due to her clinical condition PHYSICAL EXAMINATION: GENERAL: The patient is alert and oriented x1, drowsy sleepy, not in any acute distress. Well developed, well nourished. HEENT: Pupils are round and equally reacting to light. EOMI. No scleral icterus. No conjunctival pallor. Normocephalic, atraumatic. No pharyngeal erythema. No thyromegaly. CARDIOVASCULAR: S1 and S2 present. No rubs, or gallops. Patient has aortic ejection systolic murmur and maybe an Primo Dola murmur PULMONARY: Chest is clear to auscultation, no wheezing or crackles. ABDOMEN: Soft, nontender, nondistended, normoactive bowel sounds. No palpable organomegaly. MUSCULOSKELETAL: Deferred to orthopedic surgery EXTREMITIES: No cyanosis, clubbing, or pedal edema. NEUROLOGICAL: Unable to assess drowsy SKIN: No rashes. Assessment and plan -Preoperative clearance for orthopedic surgery for left femoral neck/intertrochanteric fracture: Patient is definitely high risk for surgery although this is not an elective surgery and an urgent needed surgery as his surgery improves her functionality. Patient overall prognosis although is ex tremely poor and probably less than 1 year considering her severe aortic stenosis. Patient should be able to go for surgery because of her above- mentioned reasons air. Patient should be able to go for surgery as long as Family understands that she is high risk for surgery and if they are agreeable. Patient will benefit from surgery as this improves her functionality as long she lives. Avoid benzodiazepines, barbiturates, anticholinergic medications. 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 Without any acute exacerbation -Chronic diastolic heart failure patient is presently not in acute exacerbation patient was receiving IV fluids since last night these will be discontinued. DVT prophylaxis: As per primary service Past Medical History Past Medical History: COPD, Dementia, Diabetes Mellitus, Hyperlipidemia, Hypertension, Memory Impairment, Thyroid Disorder Additional Past Medical History / Comment(s): NIDDM type II, bronchitis, hypothyroid, anemia with . History of Any Multi-Drug Resistant Organisms: None Reported Past Surgical History: Cholecystectomy, Tonsillectomy, Tubal Ligation Past Anesthesia/Blood Transfusion Reactions: No Reported Reaction, Motion Sickness Past Psychological History: Depression Additional Psychological History / Comment(s): Pt resides with her spouse. She uses no assistive device. She drives. She has a glucometer and a nebulizer. Smoking Status: Current every day smoker Past Alcohol Use History: None Reported Additional Past Alcohol Use History / Comment(s): Pt started smoking in 1964 and is a 2 ppd smoker. Past Drug Use History: None Reported - Past Family History Father Family Medical History: No Reported History Additional Family Medical History / Comment(s): Father lived into his 80s Mother Family Medical History: Myocardial Infarction ([place]) Additional Family Medical History / Comment(s): Mother at the age of 56yrs pt believes was from a [place] Medications and Allergies Home Medications Medication Instructions Recorded Confirmed Type Venlafaxine HCl [Effexor XR] 75 mg PO DAILY 02/05/19 08/24/21 History metFORMIN HCL [Glucophage] 1,000 mg PO BID 02/05/19 08/24/21 History sitaGLIPtin [Januvia] 100 mg PO DAILY 02/05/19 08/24/21 History Empagliflozin [Jardiance] 25 mg PO DAILY 06/09/19 08/24/21 History Albuterol Sulfate [Ventolin HFA] 1 - 2 puff INHALATION RT-Q4H PRN 06/10/19 08/24/21 History Spironolactone [Aldactone] 25 mg PO DAILY 06/10/19 08/24/21 History Atorvastatin [Lipitor] 80 mg PO DAILY 30 Days #30 tab 06/12/19 08/24/21 Rx Metoprolol Tartrate [Lopressor] 25 mg PO BID 30 Days #60 tab 06/12/19 08/24/21 Rx Magnesium 200 mg PO DAILY #15 tablet 06/20/19 08/24/21 Rx Cholecalciferol (Vitamin D3) 125 mcg PO DAILY 03/10/21 08/24/21 History [Vitamin D3 (125 MCG = 5,000 IU)] Fish Oil/Dha/Epa [Fish Oil 1,200 1 cap PO DAILY 03/10/21 08/24/21 History mg Fish Oil] Glimepiride [Amaryl] 2 mg PO BID 03/13/21 08/24/21 History Clopidogrel [Plavix] 75 mg PO DAILY 08/24/21 08/24/21 History Levothyroxine Sodium [Synthroid] 125 mcg PO DAILY 08/24/21 08/24/21 History Selenium 100 mcg PO DAILY 08/24/21 08/24/21 History Zinc 50 mg PO DAILY 08/24/21 08/24/21 History Allergies Allergy/AdvReac Type Severity Reaction Status Date / Time No Known Allergies Allergy Verified 08/24/21 17:44 Physical Exam Vitals: Vital Signs Temp Pulse Pulse Resp BP BP Pulse Ox 08/25/21 03:39 94 134/73 08/25/21 02:59 94 L 08/25/21 02:50 97.7 F 91 20 170/73 87 L 08/25/21 00:07 88 152/72 08/24/21 22:15 98.0 F 88 17 219/80 95 08/24/21 19:00 78 18 165/81 96 08/24/21 16:59 76 16 166/73 93 L 08/24/21 16:42 97.7 F 85 16 190/70 94 L Intake and Output 08/24/21 08/25/21 08/25/21 22:59 06:59 14:59 Intake Total 600 Output Total 200 Balance 400 Intake: Intake, IV Titration 600 Amount Sodium Chloride 0.9% 1, 600 000 ml @ 75 mls/hr IV . [id number] [facility] Rx#:[id number] Output: Urine 200 Uretheral (Barrett) 200 Other: Voiding Method Indwelling Catheter Weight 60.5 kg Results CBC & Chem 7: 08/24/21 16:59 08/24/21 16:59 Labs: Abnormal Lab Results - Last 24 Hours (Table) 08/24/21 08/24/21 08/24/21 Range/Units 16:59 16:59 20:55 RBC 3.37 L (3.80-5.40) m/uL MCV 104.5 H (80.0-100.0) fL Plt Count 124 L (150-450) k/uL Chloride 110 H (98-107) mmol/L Carbon Dioxide 21 L (22-30) mmol/L BUN 18 H (7-17) mg/dL Glucose 128 H (74-99) mg/dL POC Glucose (mg/dL) (75-99) mg/dL Urine Appearance Turbid H (Clear) Urine Protein Trace H (Negative) Urine Glucose (UA) 3+ H (Negative) Urine Blood Trace H (Negative) Ur Leukocyte Esterase Large H (Negative) Urine RBC 60 H (0-5) /hpf Urine WBC >182 H (0-5) /hpf Urine WBC Clumps Many H (None) /hpf Ur Squamous Epith Cells 120 H (0-4) /hpf Urine Bacteria Many H (None) /hpf Urine Mucus Moderate H (None) /hpf 08/24/21 08/25/21 08/25/21 Range/Units 22:42 10:17 11:11 RBC (3.80-5.40) m/uL MCV (80.0-100.0) fL Plt Count (150-450) k/uL Chloride (98-107) mmol/L Carbon Dioxide (22-30) mmol/L BUN (7-17) mg/dL Glucose (74-99) mg/dL POC Glucose (mg/dL) 119 H 126 H 125 H (75-99) mg/dL Urine Appearance (Clear) Urine Protein (Negative) Urine Glucose (UA) (Negative) Urine Blood (Negative) Ur Leukocyte Esterase (Negative) Urine RBC (0-5) /hpf Urine WBC (0-5) /hpf Urine WBC Clumps (None) /hpf Ur Squamous Epith Cells (0-4) /hpf Urine Bacteria (None) /hpf Urine Mucus (None) /hpf Thrombosis Risk Factor Assmnt - Choose All That Apply Any of the Below Risk Factors Present?: Yes Each Risk Factor Represents 3 Points: Age 75 years or older Each Risk Factor Represents 5 Points: Hip, pelvis, or leg fracture (< 1 month) Thrombosis Risk Factor Assessment Total Risk Factor Score: 8 Thrombosis Risk Factor Assessment Level: High Risk
[2021-08-25] MEDS ORDERED: LACTATED RINGERS 1,000 ML IV ONE (13:49)
[2021-08-25] MEDS ORDERED: SUCCINYLCHOLINE CHLORIDE 100 MG/5 ML SYR IV ONE (14:28)
[2021-08-25] MEDS ORDERED: LIDOCAINE 1% INJ 10MG/ML (20 ML MDV) ONE (14:28)
[2021-08-25] MEDS ORDERED: fentaNYL (PF) 50 MCG/ML 2 ML AMP ONE (14:28)
[2021-08-25] MEDS ORDERED: PHENYLEPHRINE-0.9% NACL SYG 1,000 MCG/10 ML SYRINGE ONE (14:28)
[2021-08-25] MEDS ORDERED: ROCURONIUM 10 MG/ML (5 ML VIAL) IV ONE (14:28)
[2021-08-25] MEDS ORDERED: PROPOFOL 10 MG/ML 20 ML VIAL IV ONE (14:28)
[2021-08-25] MEDS ORDERED: MIDAZOLAM 2 MG/2 ML VIAL ONE (14:28)
--- NOTE | 2021-08-25 16:15 | P.OP ---
Date of Procedure: 08/25/21 Preoperative Diagnosis: 1. Left intertrochanteric hip fracture 2. Dementia 3. Coronary artery disease 4. Aortic stenosis 5. Stroke 6. COPD 7. Type 2 diabetes Postoperative Diagnosis: Same Procedure(s) Performed: Operative fixation of left intertrochanteric hip fracture short intramedullary hip screw Implants: Short Irving Gamma nail 10mm, 95 mm lag screw, 35mm distal interlocking screw Anesthesia: GETA Surgeon: Santy Franklin Specialty Trimmer #1: Indira Watson Estimated Blood Loss (ml): 200 IV fluids (ml): 600 Urine output (ml): 200 Pathology: none sent Condition: stable Disposition: PACU Indications for Procedure: I met with the patient and their family preoperatively to discuss their injury and treatment options. They have an extra-capsular, intertrochanteric hip fracture and my recommendation was to stabilize the fracture with an intramedullary hip screw to facilitate early mobilization. We discussed the potential risks and complications of this surgical procedure including but certainly not limited to risks from anesthesia, superficial infection, deep infection, fracture nonunion, fracture malunion, hardware failure including broken hardware, varus collapse with lag screw cut out of the femoral head, progression of hip arthritis, limb length discrepancy, symptomatic hardware, need for further surgery including hardware removal and conversion to arthroplasty, DVT, PE, acute coronary event, pressure ulcers, urinary tract infection, failure to thrive, an inability to regain preinjury level of function, and possibly . The patient and their family understand these potential complications and also awknowledge that other less common complications are possible. They provided both their verbal and written consent to go forward with operative fixation of their hip fracture with an intramedullary hip screw. Description of Procedure: The patient was identified in preoperative holding and the correct operative extremity was marked with my initials. I reviewed the consent form with the patient and their family and all of their questions were answered. The patient was then brought back to the operating room by anesthesia. Anesthesia, preoperative antibiotics, and tranexamic acid were given by the anesthesia team while on the rkenduskeag. Both ankles were padded with webril and boots for the [place] table were applied. The patient was then carefully transferred onto the [place] table. A perineal post was immediately placed. The contralateral arm was secured on a well-padded arm navarro. The ipsilateral arm was draped across the chest and secured with a pillow, foam, and paper tape to allow access to the proximal femur. Nonsterile drapes were applied to the operative extremity. The height of the table was elevated and the contralateral extremity was dropped towards the floor to facilitate imaging. A timeout was performed identifying the correct patient, operative extremity, and procedure. Fluoroscopy was brought in to assess the fracture. A provisional reduction was performed using longitudinal traction, adduction, and internal rotation. An AP and lateral view were obtained to assess the reduction. The operative extremity was then prepped and draped in the standard sterile fashion. A straight incision was made at the tip of the greater trochanter and extended proximally for 3 cm. Skin and subcutaneous tissues were incised sharply. The underlying fascia was incised in line with the skin incision. An awl was placed just medial to the tip of the greater trochanter on the AP view and colinear with the canal on the lateral view. A 3.2 mm guide pin was then advanced into the proximal femur. The position of the guidepin was verified with fluoroscopy. An opening reamer and soft tissue cannula were placed over the guidepin and used to open the proximal femur to the level of the lesser trochanter. The 3.2 mm guide pin and opening reamer were removed. A short gamma nail was dispensed, hooked up to the targeting arm and I verified that the trochar through the targeting arm lined up with the slots on the nail. The nail was then impacted into the proximal femur until the appropriate depth had been reached. A small stab incision was made over the lateral aspect of the femur using the targeting arm as a reference for the lag screw. Incision was carried down to the skin and fascia down to the lateral cortex of the femur. The trocar was then placed up to the lateral cortex of the femur and a guidepin was placed in the low center position on the AP view and centered in the femoral head on the lateral view. Once the position of the guidewire was verified, we reamed to appropriate depth and placed a lag screw over the guidewire and into the femoral head. The position of the lag screw was assessed with fluoroscopy. The guidewire was then removed from the femoral head. The set screw was placed proximally, brought fully down and then released a quarter turn to allow compression. A final stab incision was made over the lateral femur at the site of the distal interlocking screw, again using the targeting arm as a reference. The trocar and sleeve were placed to the lateral cortex of the femur. We then drilled and placed a distal interlocking screw. Final fluoroscopic images were taken showing excellent reduction of the fracture and appropriate position of the implants. All wounds were thoroughly irrigated and closed in layers. Sterile dressings were applied. The drapes were taken down, the patient was transferred off the [place] table, and was brought to recovery having tolerated the procedure well. Indira Watson PA-C was required as a skilled automotive parts counter assistant for patient positioning, retraction, placement of implants, closure of wounds, and application of dressings. PLAN: The patient can weight-bear as tolerated on her operative extremity. 2 doses of postoperative antibiotics. DVT prophylaxis with aspirin 81 mg twice a day starting the day of surgery. Dressing change on postoperative day #2. Appreciate [facility] assistance with perioperative medical management. Discharge planning and process.
[2021-08-25] MEDS ORDERED: ONDANSETRON 4 MG/2 ML VIAL IVP PRN (16:27)
[2021-08-25] MEDS ORDERED: HYDROmorphone 0.2 MG/1 ML SYRINGE IVP PRN ×2 (16:27)
[2021-08-25] MEDS ORDERED: HYDROmorphone 1 MG/ML 1 ML SYRINGE IVP PRN (16:27)
[2021-08-25] MEDS ORDERED: HYDROcodone/APAP 5-325MG 1 EACH TAB PO PRN (16:27)
--- NOTE | 2021-08-25 16:34 | XR ---
Fluoroscopy HISTORY: Fracture 58 seconds fluoroscopy time supplied to the referring clinician. 3 intraoperative C-arm images docum ent the procedure. See dictated report from orthopedic surgery.
[2021-08-25] MEDS: INSULIN ASPART (NovoLOG) 100 UNIT/ML VIAL SQ SCH ×2 (16:56→19:54)
[2021-08-25 17:39] LABS: ABG Base Excess -5.2 mmol/L; ABG HCO3 20 mmol/L (21-25); ABG Oxygen Saturation 93.5 % (94-97); ABG PCO2 34 mmHg (35-45); ABG PH 7.38 (7.35-7.45); ABG PO2 70 mmHg (83-108); ABG TCO2 21 mmol/L (19-24); Allen Test Performed? Yes
[2021-08-25 17:40] LABS: Glucose,Whole Blood 163 mg/dL (75-99)
[2021-08-25 18:20] LABS: Basophils % (A) 0 %; Eosinophils % (A) 0 %; HCT 34.4 % (34.0-46.0); HGB 11.2 gm/dL (11.4-16.0); Lymphocytes # (A) 1.6 k/uL (1.0-4.8); Lymphocytes % (A) 14 %; MCH 34.8 pg (25.0-35.0); MCHC 32.7 g/dL (31.0-37.0); MCV 106.4 fL (80.0-100.0); Macrocytosis Moderate; Mean Platelet Volume 8.2; Monocytes # (A) 0.5 k/uL (0-1.0); Monocytes % (A) 5 %; Neutrophils # (A) 8.4 k/uL (1.3-7.7); Neutrophils % (A) 79 %; Platelet Count 153 k/uL (150-450); RBC 3.23 m/uL (3.80-5.40); RDW 14.5 % (11.5-15.5); WBC 10.7 k/uL (3.8-10.6)
[2021-08-25] MEDS ORDERED: HYDROmorphone 0.2 MG/1 ML SYRINGE IVP ONE (18:27)
[2021-08-25] MEDS ORDERED: HYDROmorphone 0.5 MG/0.5 ML SYRINGE IVP ONE (19:01)
[2021-08-25] MEDS: ASPIRIN 81 MG PO SCH (19:53)
[2021-08-25] MEDS: METOPROLOL TARTRATE 25 MG TAB PO SCH (19:53)
[2021-08-25] MEDS: SENNOSIDES-DOCUSATE SODIUM 1 EACH TAB PO SCH (19:53)
[2021-08-25 20:48] LABS: Glucose,Whole Blood 118 mg/dL (75-99)
[2021-08-26 06:30] LABS: Glucose,Whole Blood 118 mg/dL (75-99)
[2021-08-26] MEDS: INSULIN ASPART (NovoLOG) 100 UNIT/ML VIAL SQ SCH ×4 (06:45→20:21)
[2021-08-26] MEDS: LEVOTHYROXINE 125 MCG TAB PO SCH (06:47)
[2021-08-26] MEDS: ALBUTEROL NEBULIZED 2.5 MG/3 ML INHALATION PRN ×2 (07:50→12:55)
--- NOTE | 2021-08-26 10:14 | P.PN ---
Subjective Progress Note Date: 08/26/21 This is a 76-year-old female who is status post operative fixation of left intertrochanteric hip fracture short intramedullary hip screw by Dr. Franklin. This is postoperative day #1 and patient is seen and evaluated at bedside. Patient is a poor historian due to dementia. There is no family present at bedside today. Objective - Vital Signs Vital signs: Vital Signs Temp 98.8 F 08/26/21 08:26 Pulse 78 08/26/21 08:26 Resp 18 08/26/21 08:26 BP 126/66 08/26/21 08:26 Pulse Ox 96 08/26/21 08:26 Intake & Output 08/25/21 08/26/21 08/26/21 18:59 06:59 18:59 Intake Total 1350 200 Output Total 400 400 Balance 950 -200 Intake: IV 1350 200 Output: Urine 200 400 Estimated Blood Loss 200 Other: Voiding Method Indwelling Catheter Indwelling Catheter - Exam Vital signs are stable. Patient is in no acute distress and is confused at baseline. Calf is soft and nontender to palpation. Dressings are clean, dry, and intact. Sensation intact. Neurovascular status and circulatory status are intact. - Labs CBC & Chem 7: 08/25/21 18:10 08/24/21 16:59 Labs: Abnormal Lab Results - Last 24 Hours (Table) 08/25/21 08/25/21 08/25/21 Range/Units 10:17 11:11 17:33 WBC (3.8-10.6) k/uL RBC (3.80-5.40) m/uL Hgb (11.4-16.0) gm/dL MCV (80.0-100.0) fL Neutrophils # (1.3-7.7) k/uL ABG pCO2 34 L (35-45) mmHg ABG pO2 70 L (83-108) mmHg ABG HCO3 20 L (21-25) mmol/L ABG O2 Saturation 93.5 L (94-97) % POC Glucose (mg/dL) 126 H 125 H (75-99) mg/dL 08/25/21 08/25/21 08/25/21 Range/Units 17:39 18:10 19:52 WBC 10.7 H (3.8-10.6) k/uL RBC 3.23 L (3.80-5.40) m/uL Hgb 11.2 L (11.4-16.0) gm/dL MCV 106.4 H (80.0-100.0) fL Neutrophils # 8.4 H (1.3-7.7) k/uL ABG pCO2 (35-45) mmHg ABG pO2 (83-108) mmHg ABG HCO3 (21-25) mmol/L ABG O2 Saturation (94-97) % POC Glucose (mg/dL) 163 H 118 H (75-99) mg/dL 08/26/21 Range/Units 06:15 WBC (3.8-10.6) k/uL RBC (3.80-5.40) m/uL Hgb (11.4-16.0) gm/dL MCV (80.0-100.0) fL Neutrophils # (1.3-7.7) k/uL ABG pCO2 (35-45) mmHg ABG pO2 (83-108) mmHg ABG HCO3 (21-25) mmol/L ABG O2 Saturation (94-97) % POC Glucose (mg/dL) 118 H (75-99) mg/dL Assessment and Plan Assessment: Status post operative fixation of left intertrochanteric hip fracture short intramedullary hip screw. (1) Hip fracture Current Visit: Yes Status: Acute Code(s): S72.009A - FRACTURE OF UNSP PART OF NECK OF UNSP FEMUR, INIT SNOMED Code(s): 640962862 Plan: Continue routine postop care and pain control. Continue anticoagulation with aspirin. Weightbearing as tolerated with a walker. Appreciate input from medicine. Anticipate discharge to rehab in the next 24-48 hours.
[2021-08-26] MEDS: ASPIRIN 81 MG PO SCH ×2 (11:02→20:21)
[2021-08-26] MEDS: ZINC SULFATE 220 MG CAP PO SCH (11:02)
[2021-08-26] MEDS: CHOLECALCIFEROL 125 MCG (5000 IU) TABLET PO SCH (11:02)
[2021-08-26] MEDS: ATORVASTATIN 80 MG TAB PO SCH (11:02)
[2021-08-26] MEDS: METOPROLOL TARTRATE 25 MG TAB PO SCH ×2 (11:02→20:21)
[2021-08-26 11:43] LABS: Glucose,Whole Blood 134 mg/dL (75-99)
--- NOTE | 2021-08-26 12:24 | XR ---
"EXAMINATION TYPE: XR chest 1V DATE OF EXAM: 08/26/2021 CLINICAL HISTORY: Difficulty breathing progress study. TECHNIQUE: Single AP portable upright view of the chest is obtained. COMPARISON: Chest x-ray from 2 days earlier and older studies. FINDINGS: Osseous structures are demineralized. Age-indeterminate suspected old lateral left rib frac tures again seen. Paranasal silhouette size remains within normal limits without a cirrhotic thoracic aorta. Reticular increased opacities bilaterally remain present. Suspect new small right pleural eff usion including fluid along the right lung fissure mimicking pneumoperitoneum. IMPRESSION: Bilateral chronic parenchymal changes are thought present. New small right pleural effusi on suspected. Cannot entirely exclude pneumoperitoneum but favor pleural fluid. Consider further inve stigation with multiview abdominal x-rays to exclude. A Yellow level critical message alert has been initiated for Joe Barcenas via the [employer] 36 0 | Critical Results System on 08/26/2021 12:21 PM. This message alert has been sent to Joe mak via the preferences provided by the clinician for the receipt of Radiology Critical Findings. [facility] ID [id number]."
--- NOTE | 2021-08-26 13:03 | P.PN ---
Subjective 76-year-old female was admitted after a hip fracture patient cannot provide any history from unable to reach any of the family members. Patient had a fall and if left femoral neck fracture intertrochanteric fracture. Patient appears to have history of dementia patient is unable to provide any history to me patient appears to be alert oriented times probably 1. Hyperfunctional it is not clear appears to be less than 4 mets, lives with her who takes care of her. EKG did not show any acute ST-T wave changes. Echocardiogram in month of March 2021 revealed ejection fraction of 55-60% grade 2 diastolic dysfunction with a severely dilated LA and severe aortic stenosis with gradient of 53 and close the ear aortic valve. Patient does have history of her diabetes with us. Patient was evaluated by cardiac thoracic surgery recently and it was decided patient is not a candidate for TAVR or open heart surgery for severity of stenosis. Because of the severity of stenosis her prognosis is extremely poor. I consulted cardiology for cardiac clearance. 08/26/2021 Patient was transferred to stepdown unit as patient was hypoxic and was on BiPAP postoperatively patient was on BiPAP overnight. The chest x-ray because of her shortness of breath presently patient the is doing well is on 2 L of oxygen saturating well even that oxygen can be removed. Chest x-ray showed some pleural effusion there was suspicion of pneumoperitoneum although patient's abdomen is soft my suspicion for bowel rupture is low but will obtain abdominal x-ray. Patient is quite weak and does appear to have emphysema looking at the chest x-ray. There is no CHF on the chest x-ray. Review of systems: Unable to obtain as patient is alert oriented 1 which appears to be baseline All inpatient medications were reviewed and appropriate changes in these medications as dictated in the interval history and assessment and plan. PHYSICAL EXAMINATION: GENERAL: The patient is alert and oriented x1, awake and alert and looks much better compared to yesterday, not in any acute distress. Well developed, well nourished. HEENT: Pupils are round and equally reacting to light. EOMI. No scleral icterus. No conjunctival pallor. Normocephalic, atraumatic. No pharyngeal erythema. No thyromegaly. CARDIOVASCULAR: S1 and S2 present. No rubs, or gallops. Patient has aortic ejection systolic murmur and maybe an [place] murmur PULMONARY: Chest is clear to auscultation, no wheezing or crackles. ABDOMEN: Soft, nontender, nondistended, normoactive bowel sounds. No palpable organomegaly. MUSCULOSKELETAL: Deferred to orthopedic surgery EXTREMITIES: No cyanosis, clubbing, or pedal edema. NEUROLOGICAL: Unable to assess drowsy SKIN: No rashes. Assessment and plan -Intertrochanteric fracture: Patient underwent open reduction and internal fixa tion with the shot intramedullary hip screw. -Postoperative acute hypoxic respiratory failure which is not unexpected, secondary to her baseline emphysema, significant generalized weakness contribut ing to poor inspiratory effort. Chest x-ray findings as mentioned above and will obtain abdominal x-ray to rule out any pneumoperitoneum as there was a concern as per the radiologist reading. -COPD without any significant exacerbation -Hyperlipidemia -Type 2 diabetes mellitus: Hold off on oral hypoglycemic agents, patient was started on sliding scale insulin -Hypertension -Possible moderate to severe vascular dementia next and hypertensive. Without any acute exacerbation -Chronic diastolic heart failure patient is presently not in acute exacerbation . -Chronic deconditioning generalized weakness: Secondary to her dementia age- related muscle atrophy. DVT prophylaxis: As per primary service Objective - Vital Signs Vital signs: Vital Signs Temp 98.8 F 08/26/21 08:26 Pulse 78 08/26/21 08:26 Resp 18 08/26/21 08:26 BP 126/66 08/26/21 08:26 Pulse Ox 96 08/26/21 08:26 Intake & Output 08/25/21 08/26/21 08/26/21 18:59 06:59 18:59 Intake Total 1350 200 Output Total 400 400 Balance 950 -200 Intake: IV 1350 200 Output: Urine 200 400 Estimated Blood Loss 200 Other: Voiding Method Indwelling Catheter Indwelling Catheter Indwelling Catheter - Labs CBC & Chem 7: 08/25/21 18:10 08/24/21 16:59 Labs: Abnormal Lab Results - Last 24 Hours (Table) 08/25/21 08/25/21 08/25/21 Range/Units 17:33 17:39 18:10 WBC 10.7 H (3.8-10.6) k/uL RBC 3.23 L (3.80-5.40) m/uL Hgb 11.2 L (11.4-16.0) gm/dL MCV 106.4 H (80.0-100.0) fL Neutrophils # 8.4 H (1.3-7.7) k/uL ABG pCO2 34 L (35-45) mmHg ABG pO2 70 L (83-108) mmHg ABG HCO3 20 L (21-25) mmol/L ABG O2 Saturation 93.5 L (94-97) % POC Glucose (mg/dL) 163 H (75-99) mg/dL 08/25/21 08/26/21 08/26/21 Range/Units 19:52 06:15 11:42 WBC (3.8-10.6) k/uL RBC (3.80-5.40) m/uL Hgb (11.4-16.0) gm/dL MCV (80.0-100.0) fL Neutrophils # (1.3-7.7) k/uL ABG pCO2 (35-45) mmHg ABG pO2 (83-108) mmHg ABG HCO3 (21-25) mmol/L ABG O2 Saturation (94-97) % POC Glucose (mg/dL) 118 H 118 H 134 H (75-99) mg/dL
--- NOTE | 2021-08-26 14:04 | XR ---
EXAMINATION TYPE: XR abdomen complete w decub DATE OF EXAM: 08/26/2021 CLINICAL HISTORY: Abnormal x-ray, possible pneumoperitoneum. TECHNIQUE: Supine, upright, and left side down lateral decubitus views of the abdomen are obtained. COMPARISON: Chest x-ray earlier today. FINDINGS: No pneumoperitoneum on decubitus view. Gas prominent small and large bowel loops throughout the abdomen and pelvis. Prominent right-sided colonic fecal material. Gas prominent bowel loop right upper quadrant mimics free air. Cholecystectomy clips are seen. Surgical changes left femur is parti ally imaged. Moderate sigmoid rectal fecal prominence noted. IMPRESSION: No free air is seen.
--- NOTE | 2021-08-26 14:20 | P.PN ---
Subjective Progress Note Date: 08/26/21 This a pleasant 76-year-old female patient with past medical history of dementia, severe AI, severe , nonobstructive CAD, dyslipidemia, DM type 2, and hypertension. Follows in the office with Dr. Shah. Has been evaluated in the past in regards to her aortic valve disease and felt not to be a candidate for TAVR or open heart surgery. She presented to the emergency department after a fall at home. X-ray revealed acute left femoral neck/intertrochanteric fracture and multiple new left-sided rib fractures. We saw the patient preoperatively yesterday. She underwent operative fixation of left intertrochanteric hip fracture short intramedullary hip screw. She is doing well postoperatively. She is hemodynamically stable. She denies any complaints of chest pain, shortness of breath, orthopnea or PND. Objective - Vital Signs Vital signs: Vital Signs Temp 98.8 F 08/26/21 08:26 Pulse 78 08/26/21 08:26 Resp 18 08/26/21 08:26 BP 126/66 08/26/21 08:26 Pulse Ox 96 08/26/21 08:26 Intake & Output 08/25/21 08/26/21 08/26/21 18:59 06:59 18:59 Intake Total 1350 200 Output Total 400 400 Balance 950 -200 Intake: IV 1350 200 Output: Urine 200 400 Estimated Blood Loss 200 Other: Voiding Method Indwelling Catheter Indwelling Catheter - Exam PHYSICAL EXAMINATION: HEENT: Head is atraumatic, normocephalic. Pupils equal, round. Neck is supple. There is no elevated jugular venous pressure. HEART EXAMINATION: Heart sounds regular, S1 and S2 normal. Systolic ejection murmur and diastolic ejection murmur noted. CHEST EXAMINATION: Lungs are clear to auscultation and precussion. No chest wall tenderness is noted on palpation or with deep breathing. ABDOMEN: Soft, nontender. Bowel sounds are heard. No organomegaly noted. EXTREMITIES: 2+ peripheral pulses with no evidence of peripheral edema and no calf tenderness noted. NEUROLOGIC patient is awake, alert and oriented x2. . - Labs CBC & Chem 7: 08/25/21 18:10 08/24/21 16:59 Labs: Abnormal Lab Results - Last 24 Hours (Table) 08/25/21 08/25/21 08/25/21 Range/Units 17:33 17:39 18:10 WBC 10.7 H (3.8-10.6) k/uL RBC 3.23 L (3.80-5.40) m/uL Hgb 11.2 L (11.4-16.0) gm/dL MCV 106.4 H (80.0-100.0) fL Neutrophils # 8.4 H (1.3-7.7) k/uL ABG pCO2 34 L (35-45) mmHg ABG pO2 70 L (83-108) mmHg ABG HCO3 20 L (21-25) mmol/L ABG O2 Saturation 93.5 L (94-97) % POC Glucose (mg/dL) 163 H (75-99) mg/dL 08/25/21 08/26/21 08/26/21 Range/Units 19:52 06:15 11:42 WBC (3.8-10.6) k/uL RBC (3.80-5.40) m/uL Hgb (11.4-16.0) gm/dL MCV (80.0-100.0) fL Neutrophils # (1.3-7.7) k/uL ABG pCO2 (35-45) mmHg ABG pO2 (83-108) mmHg ABG HCO3 (21-25) mmol/L ABG O2 Saturation (94-97) % POC Glucose (mg/dL) 118 H 118 H 134 H (75-99) mg/dL Assessment and Plan Assessment: #1 Acute left femoral neck/intertrochanteric fracture #2 Severe aortic stenosis #3 Severe aortic regurgitation #4 Nonobstructive coronary artery disease #5 Dyslipidemia #6 Type 2 diabetes #7 Hypertension Plan: From construction trench digger perspective medications are reviewed and will continue the same. We will continue to follow the patient rosa-operatively and provide further recommendations accordingly. HUMAN RESOURCES SUPERVISOR note has been reviewed, I agree with a documented findings and plan of care. Patient was seen and examined.
[2021-08-26 16:44] LABS: Glucose,Whole Blood 102 mg/dL (75-99)
[2021-08-26] MEDS: SENNOSIDES-DOCUSATE SODIUM 1 EACH TAB PO SCH (20:21)
[2021-08-26 20:42] LABS: Glucose,Whole Blood 104 mg/dL (75-99)
[2021-08-27 05:55] LABS: Glucose,Whole Blood 105 mg/dL (75-99)
[2021-08-27] MEDS: INSULIN ASPART (NovoLOG) 100 UNIT/ML VIAL SQ SCH ×4 (05:58→20:24)
[2021-08-27] MEDS: LEVOTHYROXINE 125 MCG TAB PO SCH (06:21)
[2021-08-27 08:32] LABS: Calcium 8.5 mg/dL (8.4-10.2); Potassium 3.5 mmol/L (3.5-5.1)
[2021-08-27 08:35] LABS: Basophils % (A) 0 %; Eosinophils # (A) 0.1 k/uL (0-0.7); Eosinophils % (A) 1 %; HCT 26.4 % (34.0-46.0); Lymphocytes # (A) 1.7 k/uL (1.0-4.8); Lymphocytes % (A) 20 %; MCH 35.1 pg (25.0-35.0); MCHC 33.9 g/dL (31.0-37.0); MCV 103.7 fL (80.0-100.0); Macrocytosis Slight; Mean Platelet Volume 8.4; Monocytes # (A) 0.5 k/uL (0-1.0); Monocytes % (A) 6 %; Neutrophils % (A) 71 %; Platelet Count 146 k/uL (150-450); RBC 2.55 m/uL (3.80-5.40); RDW 13.9 % (11.5-15.5); WBC 8.5 k/uL (3.8-10.6)
[2021-08-27] MEDS: ATORVASTATIN 80 MG TAB PO SCH (09:05)
[2021-08-27] MEDS: ASPIRIN 81 MG PO SCH ×2 (09:05→20:24)
[2021-08-27] MEDS: METOPROLOL TARTRATE 25 MG TAB PO SCH ×2 (09:05→20:24)
[2021-08-27] MEDS: CHOLECALCIFEROL 125 MCG (5000 IU) TABLET PO SCH (09:05)
[2021-08-27] MEDS: ZINC SULFATE 220 MG CAP PO SCH (09:05)
--- NOTE | 2021-08-27 09:22 | P.PN ---
Subjective Progress Note Date: 08/27/21 This is a 76-year-old female who is status post operative fixation of left intertrochanteric hip fracture short intramedullary hip screw by Dr. Franklin. This is postoperative day #2 and patient is seen and evaluated at bedside. Patient is a poor historian due to dementia. There is no family present at bedside today. Objective - Vital Signs Vital signs: Vital Signs Temp 98.2 F 08/26/21 20:20 Pulse 55 L 08/27/21 04:10 Resp 18 08/27/21 04:10 BP 151/67 08/27/21 04:10 Pulse Ox 92 L 08/27/21 04:10 Intake & Output 08/26/21 08/27/21 08/27/21 18:59 06:59 18:59 Output Total 175 400 Balance -175 -400 Output: Urine 175 400 Other: Voiding Method Indwelling Catheter Indwelling Catheter - Exam Vital signs are stable. Patient is in no acute distress and is confused at baseline. Calf is soft and nontender to palpation. Dressings are clean, dry, and intact. Patient has full active range of motion of the left foot and ankle. Sensation intact. Neurovascular status and circulatory status are intact. - Labs CBC & Chem 7: 08/27/21 07:38 08/27/21 07:38 Labs: Abnormal Lab Results - Last 24 Hours (Table) 08/26/21 08/26/21 08/26/21 Range/Units 11:42 16:43 19:58 RBC (3.80-5.40) m/uL Hgb (11.4-16.0) gm/dL Hct (34.0-46.0) % MCV (80.0-100.0) fL MCH (25.0-35.0) pg Plt Count (150-450) k/uL Chloride (98-107) mmol/L BUN (7-17) mg/dL Glucose (74-99) mg/dL POC Glucose (mg/dL) 134 H 102 H 104 H (75-99) mg/dL 08/27/21 08/27/21 08/27/21 Range/Units 05:43 07:38 07:38 RBC 2.55 L (3.80-5.40) m/uL Hgb 9.0 L D (11.4-16.0) gm/dL Hct 26.4 L (34.0-46.0) % MCV 103.7 H (80.0-100.0) fL MCH 35.1 H (25.0-35.0) pg Plt Count 146 L (150-450) k/uL Chloride 108 H (98-107) mmol/L BUN 19 H (7-17) mg/dL Glucose 121 H (74-99) mg/dL POC Glucose (mg/dL) 105 H (75-99) mg/dL Assessment and Plan Assessment: Status post operative fixation of left intertrochanteric hip fracture short intramedullary hip screw. (1) Hip fracture Current Visit: Yes Status: Acute Code(s): S72.009A - FRACTURE OF UNSP PART OF NECK OF UNSP FEMUR, INIT SNOMED Code(s): 608393054 Plan: Continue routine postop care and pain control. Continue anticoagulation with aspirin. Weightbearing as tolerated with a walker. Appreciate input from medicine. Anticipate discharge to rehab in the next 24-48 hours.
[2021-08-27] MEDS ORDERED: POTASSIUM CHLORIDE ER 20 MEQ TAB.ER PO STA (09:34)
--- NOTE | 2021-08-27 09:36 | P.PN ---
Subjective 76-year-old female was admitted after a hip fracture patient cannot provide any history from unable to reach any of the family members. Patient had a fall and if left femoral neck fracture intertrochanteric fracture. Patient appears to have history of dementia patient is unable to provide any history to me patient appears to be alert oriented times probably 1. Hyperfunctional it is not clear appears to be less than 4 mets, lives with her who takes care of her. EKG did not show any acute ST-T wave changes. Echocardiogram in month of March 2021 revealed ejection fraction of 55-60% grade 2 diastolic dysfunction with a severely dilated LA and severe aortic stenosis with gradient of 53 and close the ear aortic valve. Patient does have history of her diabetes with us. Patient was evaluated by cardiac thoracic surgery recently and it was decided patient is not a candidate for TAVR or open heart surgery for severity of stenosis. Because of the severity of stenosis her prognosis is extremely poor. I consulted cardiology for cardiac clearance. 08/26/2021 Patient was transferred to stepdown unit as patient was hypoxic and was on BiPAP postoperatively patient was on BiPAP overnight. The chest x-ray because of her shortness of breath presently patient the is doing well is on 2 L of oxygen saturating well even that oxygen can be removed. Chest x-ray showed some pleural effusion there was suspicion of pneumoperitoneum although patient's abdomen is soft my suspicion for bowel rupture is low but will obtain abdominal x-ray. Patient is quite weak and does appear to have emphysema looking at the chest x-ray. There is no CHF on the chest x-ray. 08/27/2021 Abdominal x-ray did not show any free 8. Patient remains intubated is of oxygen although her mental status is bit better patient is alert oriented 2 are this can you all the narcotics patient is not requiring much of pain medications will patient will just stay with Tylenol she is not complaining of pain patient thinks it's 1974 otherwise she knows it's hospital and her name. Patient is quite weak will need placement in subacute rehabilitation. Her overall prognosis although is extremely poor. Review of systems: Unable to obtain as patient is alert oriented 1 which appears to be baseline All inpatient medications were reviewed and appropriate changes in these medications as dictated in the interval history and assessment and plan. PHYSICAL EXAMINATION: GENERAL: The patient is alert and oriented x1, awake and alert and looks much b yan compared to yesterday, not in any acute distress. Well developed, well nourished. HEENT: Pupils are round and equally reacting to light. EOMI. No scleral icterus. No conjunctival pallor. Normocephalic, atraumatic. No pharyngeal erythema. No thyromegaly. CARDIOVASCULAR: S1 and S2 present. No rubs, or gallops. Patient has aortic ejection systolic murmur and maybe an Prim[place] murmur PULMONARY: Chest is clear to auscultation, no wheezing or crackles. ABDOMEN: Soft, nontender, nondistended, normoactive bowel sounds. No palpable organomegaly. MUSCULOSKELETAL: Deferred to orthopedic surgery EXTREMITIES: No cyanosis, clubbing, or pedal edema. NEUROLOGICAL: Unable to assess drowsy SKIN: No rashes. Assessment and plan -Intertrochanteric fracture: Patient underwent open reduction and internal fixation with the shot intramedullary hip screw. -Postoperative acute hypoxic respiratory failure which is not unexpected, secondary to her baseline emphysema, significant generalized weakness contributing to poor inspiratory effort. -COPD without any significant exacerbation -Hyperlipidemia -Type 2 diabetes mellitus: Hold off on oral hypoglycemic agents, patient was started on sliding scale insulin -Hypertension -Possible moderate to severe vascular dementia next and hypertensive. Without any acute exacerbation -Chronic diastolic heart failure patient is presently not in acute exacerbation . -Chronic deconditioning generalized weakness: Secondary to her dementia age-related muscle atrophy. DVT prophylaxis: As per primary service Objective - Vital Signs Vital signs: Vital Signs Temp 98.2 F 08/26/21 20:20 Pulse 55 L 08/27/21 04:10 Resp 18 08/27/21 04:10 BP 151/67 08/27/21 04:10 Pulse Ox 92 L 08/27/21 04:10 Intake & Output 08/26/21 08/27/21 08/27/21 18:59 06:59 18:59 Output Total 175 400 Balance -175 -400 Output: Urine 175 400 Other: Voiding Method Indwelling Catheter Indwelling Catheter - Labs CBC & Chem 7: 08/27/21 07:38 08/27/21 07:38 Labs: Abnormal Lab Results - Last 24 Hours (Table) 08/26/21 08/26/21 08/26/21 Range/Units 11:42 16:43 19:58 RBC (3.80-5.40) m/uL Hgb (11.4-16.0) gm/dL Hct (34.0-46.0) % MCV (80.0-100.0) fL MCH (25.0-35.0) pg Plt Count (150-450) k/uL Chloride (98-107) mmol/L BUN (7-17) mg/dL Glucose (74-99) mg/dL POC Glucose (mg/dL) 134 H 102 H 104 H (75-99) mg/dL 08/27/21 08/27/21 08/27/21 Range/Units 05:43 07:38 07:38 RBC 2.55 L (3.80-5.40) m/uL Hgb 9.0 L D (11.4-16.0) gm/dL Hct 26.4 L (34.0-46.0) % MCV 103.7 H (80.0-100.0) fL MCH 35.1 H (25.0-35.0) pg Plt Count 146 L (150-450) k/uL Chloride 108 H (98-107) mmol/L BUN 19 H (7-17) mg/dL Glucose 121 H (74-99) mg/dL POC Glucose (mg/dL) 105 H (75-99) mg/dL
--- NOTE | 2021-08-27 11:00 | P.PN ---
Subjective Progress Note Date: 08/27/21 PROGRESS NOTE The patient is status post hip surgery, she has a known history of severe aortic disease, diabetes, hypertension and hyperlipidemia. She is feeling well today, she denies any chest discomfort, dizziness or palpitations. Her leg discomfort is better. She denies any nausea. PHYSICAL EXAMINATION: Blood pressure 129/74 heart rate 90 LUNGS: [Clear to auscultation] HEART: [Regular rate and rhythm, S1, S2. No S3. Systolic ejection murmur, 3/6 with early diastolic murmur] ABDOMEN: [Soft, nontender, no organomegaly] EXTREMETIES: [No edema, ecchymosis on the left side] LAB: BUN 19, creatinine 0.9, hemoglobin of 9 IMPRESSION: 1. Status post hip fracture and surgery 2. Severe aortic valve disease 3. History of hypertension 4. History of hyperlipidemia PLAN: Continue present therapy and increase activity gradually. Depending on her progress further recommendations will be made. Objective - Vital Signs Vital signs: Vital Signs Temp 97.9 F 08/27/21 08:00 Pulse 90 08/27/21 08:00 Resp 16 08/27/21 08:00 BP 129/74 08/27/21 08:00 Pulse Ox 91 L 08/27/21 08:00 Intake & Output 08/26/21 08/27/21 08/27/21 18:59 06:59 18:59 Output Total 175 400 Balance -175 -400 Output: Urine 175 400 Other: Voiding Method Indwelling Catheter Indwelling Catheter Indwelling Catheter - Labs CBC & Chem 7: 08/27/21 07:38 08/27/21 07:38 Labs: Abnormal Lab Results - Last 24 Hours (Table) 08/26/21 08/26/21 08/26/21 Range/Units 11:42 16:43 19:58 RBC (3.80-5.40) m/uL Hgb (11.4-16.0) gm/dL Hct (34.0-46.0) % MCV (80.0-100.0) fL MCH (25.0-35.0) pg Plt Count (150-450) k/uL Chloride (98-107) mmol/L BUN (7-17) mg/dL Glucose (74-99) mg/dL POC Glucose (mg/dL) 134 H 102 H 104 H (75-99) mg/dL 08/27/21 08/27/21 08/27/21 Range/Units 05:43 07:38 07:38 RBC 2.55 L (3.80-5.40) m/uL Hgb 9.0 L D (11.4-16.0) gm/dL Hct 26.4 L (34.0-46.0) % MCV 103.7 H (80.0-100.0) fL MCH 35.1 H (25.0-35.0) pg Plt Count 146 L (150-450) k/uL Chloride 108 H (98-107) mmol/L BUN 19 H (7-17) mg/dL Glucose 121 H (74-99) mg/dL POC Glucose (mg/dL) 105 H (75-99) mg/dL
[2021-08-27 11:44] LABS: Glucose,Whole Blood 157 mg/dL (75-99)
[2021-08-27 16:45] LABS: Glucose,Whole Blood 134 mg/dL (75-99)
[2021-08-27] MEDS: SENNOSIDES-DOCUSATE SODIUM 1 EACH TAB PO SCH (20:24)
[2021-08-27 20:39] LABS: Glucose,Whole Blood 150 mg/dL (75-99)
[2021-08-28 07:39] LABS: Glucose,Whole Blood 100 mg/dL (75-99)
[2021-08-28] MEDS: ASPIRIN 81 MG PO SCH ×2 (09:17→20:16)
[2021-08-28] MEDS: ATORVASTATIN 80 MG TAB PO SCH (09:17)
[2021-08-28] MEDS: ZINC SULFATE 220 MG CAP PO SCH (09:17)
[2021-08-28] MEDS: CHOLECALCIFEROL 125 MCG (5000 IU) TABLET PO SCH (09:17)
[2021-08-28] MEDS: METOPROLOL TARTRATE 25 MG TAB PO SCH ×2 (09:17→20:17)
[2021-08-28] MEDS: INSULIN ASPART (NovoLOG) 100 UNIT/ML VIAL SQ SCH ×4 (09:18→20:19)
[2021-08-28] MEDS: LEVOTHYROXINE 125 MCG TAB PO SCH (09:18)
--- NOTE | 2021-08-28 10:17 | P.PN ---
Subjective Progress Note Date: 08/28/21 HISTORY OF PRESENT ILLNESS: Patient examined this morning at the bedside. She is status post surgery with orthopedics secondary to a hip fracture. Patient denies chest pain or pressure. She denies shortness of breath. Patient states her pain is tolerable. Patient's vital signs are stable. PHYSICAL EXAM: VITAL SIGNS: Reviewed. GENERAL: Well-developed in no acute distress. NECK: Supple. No JVD or thyromegaly LUNGS: Respirations even and unlabored. Lungs essentially clear to auscultation bilaterally. HEART: Regular rate and rhythm. S1 and S2 heard. Systolic murmur noted. EXTREMITIES: No clubbing or cyanosis. Peripheral pulses intact. No lower e xtremity edema ASSESSMENT: Acute left femoral neck/intertrochanteric fracture Severe aortic stenosis Severe aortic regurgitation Nonobstructive coronary artery disease Dyslipidemia Type 2 diabetes Hypertension PLAN: Patient is currently stable from a cardiac standpoint Continue current cardiac medications No further inpatient recommendations from a cardiac standpoint We will sign off. Please reconsult if needed. Nurse practitioner note has been reviewed by physician. Signing provider agrees with the documented findings, assessment, and plan of care. Objective - Vital Signs Vital signs: Vital Signs Temp 97.1 F L 08/28/21 05:58 Pulse 58 L 08/28/21 08:00 Resp 19 08/28/21 08:00 BP 143/47 08/28/21 05:58 Pulse Ox 92 L 08/28/21 05:58 Intake & Output 08/27/21 08/28/21 08/28/21 18:59 06:59 18:59 Output Total 450 Balance -450 Output: Urine 450 Other: Voiding Method Indwelling Catheter Indwelling Catheter Indwelling Catheter - Labs CBC & Chem 7: 08/27/21 07:38 08/27/21 07:38 Labs: Abnormal Lab Results - Last 24 Hours (Table) 08/27/21 08/27/21 08/27/21 Range/Units 11:42 16:44 20:11 POC Glucose (mg/dL) 157 H 134 H 150 H (75-99) mg/dL 08/28/21 Range/Units 07:38 POC Glucose (mg/dL) 100 H (75-99) mg/dL
[2021-08-28 11:09] LABS: Glucose,Whole Blood 116 mg/dL (75-99)
--- NOTE | 2021-08-28 14:28 | P.DS ---
Providers Date of admission: 08/24/21 19:01 Expected date of discharge: 08/28/21 Attending physician: Santy Franklin Consults: 08/24/21 19:01 Consult Physician Routine Consulting Provider: Chivo Hameed Consult Reason/Comments: medical clearance Do you want consulting provider notified?: Yes Primary care physician: Odin Boswell [facility] Course: This is a 76-year-old female who is admitted to [facility] on 08/24/21 after a ground-level fall and sustaining injury to the left hip. X-rays in the emergency department revealed an intertrochanteric fracture of the left hip. She is admitted to our service for surgical intervention and care. Patient was taken to surgery for operative fixation of her left hip fracture with a short intramedullary hip screw on 08/25/[address] Franklin. The procedure was performed without complication or sequelae. The patient is doing fairly well postoperatively. Vital signs and labs are stable on post- operative day #3. On examination, the patient is sitting up in bed in no apparent distress. She is alert and oriented 1. She answers questions appropriately. On inspection of the left hip, there are clean, dry, intact surgical dressings in place with no bleeding or drainage through the dressings. There is mild swelling of the thigh, the thigh is soft and compressible. Motor and sensory function is intact of the left lower extremity. Left lower extremity is warm and well perfused. Calf is soft and nontender to palpation. Patient is discharged to rehab today, pending medical clearance. Patient will follow-up with Dr. Franklin in the office in 2 weeks. Please see med rec for accurate list of discharge medication. Patient Condition at Discharge: Fair Plan - Discharge Summary Discharge Rx Participant: No New Discharge Prescriptions: New Aspirin [Adult Low Dose Aspirin EC] 81 mg PO BID 30 Days #60 tab HYDROcodone/APAP 5-325MG [[place]mer 5-325] 1 - 2 tab PO Q6HR PRN #32 tab PRN Reason: Pain Sennosides [Senokot] 2 tab PO DAILY PRN #60 tablet PRN Reason: Constipation No Action Venlafaxine HCl [Effexor XR] 75 mg PO DAILY sitaGLIPtin [Januvia] 100 mg PO DAILY metFORMIN HCL [Glucophage] 1,000 mg PO BID Empagliflozin [Jardiance] 25 mg PO DAILY Spironolactone [Aldactone] 25 mg PO DAILY Albuterol Sulfate [Ventolin HFA] 1 - 2 puff INHALATION RT-Q4H PRN PRN Reason: Shortness Of Breath Atorvastatin [Lipitor] 80 mg PO DAILY 30 Days #30 tab Metoprolol Tartrate [Lopressor] 25 mg PO BID 30 Days #60 tab Magnesium 200 mg PO DAILY #15 tablet Cholecalciferol (Vitamin D3) [Vitamin D3 (125 MCG = 5,000 IU)] 125 mcg PO DA RADHA Glimepiride [Amaryl] 2 mg PO BID Fish Oil/Dha/Epa [Fish Oil 1,200 mg Fish Oil] 1 cap PO DAILY Zinc 50 mg PO DAILY Levothyroxine Sodium [Synthroid] 125 mcg PO DAILY Clopidogrel [Plavix] 75 mg PO DAILY Selenium 100 mcg PO DAILY Discharge Medication List Venlafaxine HCl [Effexor XR] 75 mg PO DAILY 02/05/19 [History] metFORMIN HCL [Glucophage] 1,000 mg PO BID 02/05/19 [History] sitaGLIPtin [Januvia] 100 mg PO DAILY 02/05/19 [History] Empagliflozin [Jardiance] 25 mg PO DAILY 06/09/19 [History] Albuterol Sulfate [Ventolin HFA] 1 - 2 puff INHALATION RT-Q4H PRN 06/10/19 [History] Spironolactone [Aldactone] 25 mg PO DAILY 06/10/19 [History] Atorvastatin [Lipitor] 80 mg PO DAILY 30 Days #30 tab 06/12/19 [Rx] Metoprolol Tartrate [Lopressor] 25 mg PO BID 30 Days #60 tab 06/12/19 [Rx] Magnesium 200 mg PO DAILY #15 tablet 06/20/19 [Rx] Cholecalciferol (Vitamin D3) [Vitamin D3 (125 MCG = 5,000 IU)] 125 mcg PO DAILY 03/10/21 [History] Fish Oil/Dha/Epa [Fish Oil 1,200 mg Fish Oil] 1 cap PO DAILY 03/10/21 [History] Glimepiride [Amaryl] 2 mg PO BID 03/13/21 [History] Clopidogrel [Plavix] 75 mg PO DAILY 08/24/21 [History] Levothyroxine Sodium [Synthroid] 125 mcg PO DAILY 08/24/21 [History] Selenium 100 mcg PO DAILY 08/24/21 [History] Zinc 50 mg PO DAILY 08/24/21 [History] Aspirin [Adult Low Dose Aspirin EC] 81 mg PO BID 30 Days #60 tab 08/26/21 [Rx] HYDROcodone/APAP 5-325MG [[place] 5-325] 1 - 2 tab PO Q6HR PRN #32 tab 08/26/21 [Rx] Sennosides [Senokot] 2 tab PO DAILY PRN #60 tablet 08/26/21 [Rx] Follow up Appointment(s)/Referral(s): Odin Boswell MD [Primary Care Provider] - 1-2 days Komal Shah MD [STAFF PHYSICIAN] - 2 Weeks Santy Franklin MD [Medical Doctor] - 2 Weeks Activity/Diet/Wound Care/Special Instructions: Weight bear as tolerated on operative extremity with a walker. Daily dressing changes to the left hip. Physical therapy for gait and balance training. Follow-up in the office in two weeks
--- NOTE | 2021-08-28 15:30 | P.PN ---
Subjective Progress Note Date: 08/28/21 76-year-old female was admitted after a hip fracture patient cannot provide any history from unable to reach any of the family members. Patient had a fall and if left femoral neck fracture intertrochanteric fracture. Patient appears to have history of dementia patient is unable to provide any history to me patient appears to be alert oriented times probably 1. Hyperfunctional it is not clear appears to be less than 4 mets, lives with her who takes care of her. EKG did not show any acute ST-T wave changes. Echocardiogram in month of March 2021 revealed ejection fraction of 55-60% grade 2 diastolic dysfunction with a severely dilated LA and severe aortic stenosis with gradient of 53 and close the ear aortic valve. Patient does have history of her diabetes with us. Patient was evaluated by cardiac thoracic surgery recently and it was decided patient is not a candidate for TAVR or open heart surgery for severity of stenosis. Because of the severity of stenosis her prognosis is extremely poor. I consulted cardiology for cardiac clearance. 08/26/2021 Patient was transferred to stepdown unit as patient was hypoxic and was on BiPAP postoperatively patient was on BiPAP overnight. The chest x-ray because of her shortness of breath presently patient the is doing well is on 2 L of oxygen saturating well even that oxygen can be removed. Chest x-ray showed some pleural effusion there was suspicion of pneumoperitoneum although patient's abdomen is soft my suspicion for bowel rupture is low but will obtain abdominal x-ray. Patient is quite weak and does appear to have emphysema looking at the chest x-ray. There is no CHF on the chest x-ray. 08/27/2021 Abdominal x-ray did not show any free air. Patient remains intubated is of oxygen although her mental status is bit better patient is alert oriented 2 are this can you all the narcotics patient is not requiring much of pain medications will patient will just stay with Tylenol she is not complaining of pain patient thinks it's 1974 otherwise she knows it's hospital and her name. Patient is quite weak will need placement in subacute rehabilitation. Her overall prognosis although is extremely poor. 08/28/2021 Patient is seen and evaluated currently sitting up in the chair with no acute overnight issues noted. Patient is scheduled to be discharged to [facility] today for continued therapy status post left femoral neck fracture. Patient will continue on aspirin twice daily per orthopedic recommendations and was evaluated by cardiology recommending outpatient follow-up. Patient was on Plavix prior to a dmission which is currently on hold and will need to be discussed with cardiology about resuming. Blood sugars improved and will continue with current medication regimen and recommend monitoring blood sugars before meals at bedtime. Review of systems: Unable to obtain as patient is alert oriented 1 which appears to be baseline All inpatient medications were reviewed and appropriate changes in these medications as dictated in the interval history and assessment and plan. Active Medications Acetaminophen (Acetaminophen Tab 325 Mg Tab) 650 mg PO Q6HR PRN PRN Reason: Mild Pain or Fever > 100.5 Albuterol Sulfate (Albuterol Nebulized 2.5 Mg/3 Ml) 2.5 mg INHALATION RT-Q4H PRN PRN Reason: Shortness Of Breath Last Admin: 08/26/21 12:55 Dose: 2.5 mg Documented by: Aspirin (Aspirin 81 Mg) 81 mg PO BID [facility] Last Admin: 08/28/21 09:17 Dose: 81 mg Documented by: Atorvastatin Calcium (Atorvastatin 80 Mg Tab) 80 mg PO DAILY [facility] Last Admin: 08/28/21 09:17 Dose: 80 mg Documented by: Cholecalciferol (Cholecalciferol 125 Mcg (5000 Iu) Tablet) 125 mcg PO DAILY [facility] Last Admin: 08/28/21 09:17 Dose: 125 mcg Documented by: Hydromorphone HCl (Hydromorphone 1 Mg/Ml 1 Ml Syringe) 0.5 mg IVP Q3HR PRN PRN Reason: Pain Scale 7 to 10 Insulin Aspart (Insulin Aspart (Novolog) 100 Unit/Ml Vial) 0 unit SQ [facility]; Protocol Last Admin: 08/28/21 11:14 Dose: Not Given Documented by: Levothyroxine Sodium (Levothyroxine 125 Mcg Tab) 125 mcg PO DAILY@0630 [facility] Last Admin: 08/28/21 09:18 Dose: 125 mcg Documented by: Metoprolol Tartrate (Metoprolol Tartrate 25 Mg Tab) 25 mg PO BID [facility] Last Admin: 08/28/21 09:17 Dose: 25 mg Documented by: Naloxone HCl (Naloxone 0.4 Mg/Ml 1 Ml Vial) 0.2 mg IV Q2M PRN PRN Reason: Opioid Reversal Ondansetron HCl (Ondansetron 4 Mg/2 Ml Vial) 4 mg IVP Q24HR PRN PRN Reason: Nausea And Vomiting Senna/Docusate Sodium (Sennosides-Docusate Sodium 1 Each Tab) 2 each PO HS [facility] Last Admin: 08/27/21 20:24 Dose: 2 each Documented by: Zinc Sulfate (Zinc Sulfate 220 Mg Cap) 220 mg PO DAILY [facility] Last Admin: 08/28/21 09:17 Dose: 220 mg Documented by: PHYSICAL EXAMINATION: GENERAL: The patient is alert and oriented x1, awake and alert, sitting up in the chair, not in any acute distress. Well developed, well nourished. HEENT: Pupils are round and equally reacting to light. EOMI. No scleral icterus. No conjunctival pallor. Normocephalic, atraumatic. No pharyngeal erythema. No thyromegaly. CARDIOVASCULAR: S1 and S2 present. No rubs, or gallops. Patient has aortic ejection systolic murmur and maybe an [place] murmur PULMONARY: Chest is clear to auscultation, no wheezing or crackles. ABDOMEN: Soft, nontender, nondistended, normoactive bowel sounds. No palpable organomegaly. MUSCULOSKELETAL: Deferred to orthopedic surgery EXTREMITIES: No cyanosis, clubbing, or pedal edema. NEUROLOGICAL: Cooperative, diffusely weak SKIN: No rashes. Assessment and plan: -Intertrochanteric fracture: Patient underwent open reduction and internal fixation with intramedullary hip screw. -Postoperative acute hypoxic respiratory failure which is not unexpected, secondary to her baseline emphysema, significant generalized weakness contributing to poor inspiratory effort. 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 -Chronic deconditioning generalized weakness: Secondary to her dementia age-re lated muscle atrophy. -DVT prophylaxis: As per primary service Objective - Vital Signs Vital signs: Vital Signs Temp 97.1 F L 08/28/21 05:58 Pulse 58 L 08/28/21 05:58 Resp 19 08/28/21 05:58 BP 143/47 08/28/21 05:58 Pulse Ox 92 L 08/28/21 05:58 Intake & Output 08/27/21 08/28/21 08/28/21 18:59 06:59 18:59 Output Total 450 Balance -450 Output: Urine 450 Other: Voiding Method Indwelling Catheter Indwelling Catheter - Labs CBC & Chem 7: 08/27/21 07:38 08/27/21 07:38 Labs: Abnormal Lab Results - Last 24 Hours (Table) 08/27/21 08/27/21 08/27/21 Range/Units 11:42 16:44 20:11 POC Glucose (mg/dL) 157 H 134 H 150 H (75-99) mg/dL 08/28/21 Range/Units 07:38 POC Glucose (mg/dL) 100 H (75-99) mg/dL
[2021-08-28 16:55] LABS: Glucose,Whole Blood 139 mg/dL (75-99)
[2021-08-28] MEDS: SENNOSIDES-DOCUSATE SODIUM 1 EACH TAB PO SCH (20:17)
[2021-08-28 20:20] LABS: Glucose,Whole Blood 191 mg/dL (75-99)
[2021-08-29] MEDS: LEVOTHYROXINE 125 MCG TAB PO SCH (05:12)
[2021-08-29 07:03] LABS: Glucose,Whole Blood 139 mg/dL (75-99)
[2021-08-29 08:13] VITALS: BP 134/66; PULSE 83; RESP 16; TEMP 97.9
[2021-08-29] MEDS: ATORVASTATIN 80 MG TAB PO SCH (08:34)
[2021-08-29] MEDS: ASPIRIN 81 MG PO SCH (08:34)
[2021-08-29] MEDS: INSULIN ASPART (NovoLOG) 100 UNIT/ML VIAL SQ SCH ×2 (08:34→11:41)
[2021-08-29] MEDS: CHOLECALCIFEROL 125 MCG (5000 IU) TABLET PO SCH (08:34)
[2021-08-29] MEDS: ZINC SULFATE 220 MG CAP PO SCH (08:34)
[2021-08-29] MEDS: METOPROLOL TARTRATE 25 MG TAB PO SCH (08:34)
[2021-08-29 11:36] LABS: Glucose,Whole Blood 123 mg/dL (75-99)
--- NOTE | 2021-08-29 15:02 | FL ---
EXAMINATION TYPE: FL barium swallow w video DATE OF EXAM: 08/29/2021 COMPARISON: NONE HISTORY: Aspiration. FINDINGS: Patient was evaluated in real-time fluoroscopy in the lateral projection while ingesting barium mixe d with liquids and solids. On thin liquids ingestion, laryngeal penetration and minimal aspiration was detected. [place] thick li quids also showed some minimal aspiration, patient coughed with these episodes. See dictated report from speech pathology. No images obtained. Three minutes 35 seconds arthroscopy time supplied.
--- NOTE | 2021-08-29 17:38 | P.PN ---
Subjective Progress Note Date: 08/29/21 Principal diagnosis: Left femoral neck fracture secondary to fall Patient presented to the emergency room with complaint of a fall and left hip pain. She has a medical history of dementia, COPD, hypertension, hypothyroidism, type 2 diabetes, hyperlipidemia and anemia. Patient is a poor historian. Orthopedic surgeon was consulted. On August 25, patient underwent an open re duction and internal fixation with intramedullary hip screw with Dr. Franklin. She was transferred to stepdown unit with hypoxia and was on a BiPAP postop. Patient required BiPAP overnight and was weaned down to 2 L, and then room air the following day. Currently on room air. Plan for discharge is to subacute rehab. Patient was followed by hospitalists 08/24/21-08/28/21. 08/29/21 Patient was seen and evaluated at bedside. Patient is resting comfortably in bed, pleasantly confused. Oriented to self. Denies pain, shortness of breath, or abdominal discomfort. Was supposed to be discharged to [facility] yesterday. Anticipate discharge today. Continue current treatment regimen. Continue monitoring vital signs and pain levels. Medically cleared for discharge Objective - Vital Signs Vital signs: Vital Signs Temp 97.9 F 08/29/21 08:00 Pulse 83 08/29/21 08:00 Resp 16 08/29/21 08:00 BP 134/66 08/29/21 08:00 Pulse Ox 95 08/29/21 08:00 Intake & Output 08/28/21 08/29/21 08/29/21 18:59 06:59 18:59 Intake Total 350 Output Total 1000 Balance 350 -1000 Intake: Oral 350 Output: Urine 1000 Other: Voiding Method Indwelling Catheter Indwelling Catheter Indwelling Catheter # Bowel Movements 1 - Constitutional General appearance: Present: average body habitus, no acute distress - EENT Eyes: Present: EOMI, PERRLA ENT: Present: normal oropharynx Ears: bilateral: normal - Neck Neck: Present: normal ROM Carotids: bilateral: upstroke normal Thyroid: bilateral: normal size - Respiratory Respiratory: bilateral: CTA - Cardiovascular Heart rate: 80 Rhythm: regular Heart sounds: normal: S1, S2 - Peripheral pulses dorsalis pedis Peripheral Pulses: bilateral: Normal - Gastrointestinal General gastrointestinal: Present: normal bowel sounds, soft - Integumentary Integumentary Comment(s): Left hip surgical incision well approximated, no redness or draining Integumentary: Present: normal, normal turgor - Neurologic Neurologic: Present: CNII-XII intact - Musculoskeletal Musculoskeletal: Present: generalized weakness - Psychiatric Psychiatric Comment(s): Patient is confused at this time, oriented to person - Allied health notes Allied health notes reviewed: nursing - Labs CBC & Chem 7: 08/27/21 07:38 08/27/21 07:38 Labs: Abnormal Lab Results - Last 24 Hours (Table) 08/28/21 08/28/21 08/29/21 Range/Units 16:54 20:19 07:02 POC Glucose (mg/dL) 139 H 191 H 139 H (75-99) mg/dL 08/29/21 Range/Units 11:35 POC Glucose (mg/dL) 123 H (75-99) mg/dL - Imaging and Cardiology Chest x-ray: image reviewed Abdominal x-ray: image reviewed Assessment and Plan Assessment: Left femoral head fracture, status post open reduction and internal fixation with intramedullary hip screw Postoperative acute hypoxic respiratory failure, resolving currently on room air COPD without exacerbation type 2 diabetes Hyperlipidemia Hypertension Chronic deconditioning generalized weakness Plan: Patient was supposed to be discharged to sub acute rehab yesterday. Plan for discharge today. continue current medications and treatment plan. Continue to monitor vital signs and orientation Time with Patient: Greater than 30
== END 2021-08-29 15:10 | DRG 480 ==
LOC: EC 16:34 → 4SSUR 19:01 → 3SCARD 08-25 18:51 → 4SSUR 08-28 05:28
PROVIDERS: ADMIT Orthopaedic Surgery; ATTEND Orthopaedic Surgery
PROC: 5A09357 Assistance with Respiratory Ventilation, Less than 24 Consecutive Hours, Continuous Positive Airway Pressure (ICD-10-PCS; 2021-08-25)
PROC: 0QS736Z Reposition Left Upper Femur with Intramedullary Internal Fixation Device, Percutaneous Approach (ICD-10-PCS; principal; 2021-08-25 09:50)
DX: S72.142A Displaced intertrochanteric fracture of left femur, initial encounter for closed fracture (principal); J96.01 Acute respiratory failure with hypoxia; I50.32 Chronic diastolic (congestive) heart failure; S22.42XA Multiple fractures of ribs, left side, initial encounter for closed fracture; I11.0 Hypertensive heart disease with heart failure; F01.50 Vascular dementia, unspecified severity, without behavioral disturbance, psychotic disturbance, mood disturbance, and anxiety; E11.9 Type 2 diabetes mellitus without complications; E03.9 Hypothyroidism, unspecified; J43.9 Emphysema, unspecified; S72.052A Unspecified fracture of head of left femur, initial encounter for closed fracture; Z20.822 Contact with and (suspected) exposure to COVID-19; I25.10 Atherosclerotic heart disease of native coronary artery without angina pectoris; E78.5 Hyperlipidemia, unspecified; I08.3 Combined rheumatic disorders of mitral, aortic and tricuspid valves; F32.A Depression, unspecified; M62.50 Muscle wasting and atrophy, not elsewhere classified, unspecified site; I49.3 Ventricular premature depolarization; R82.71 Bacteriuria; F17.210 Nicotine dependence, cigarettes, uncomplicated; Z71.6 Tobacco abuse counseling; Z79.02 Long term (current) use of antithrombotics/antiplatelets; Z79.84 Long term (current) use of oral hypoglycemic drugs; Z79.890 Hormone replacement therapy; Z79.899 Other long term (current) drug therapy; Z90.49 Acquired absence of other specified parts of digestive tract; Z87.19 Personal history of other diseases of the digestive system; Z98.51 Tubal ligation status; Z90.89 Acquired absence of other organs; Z86.73 Personal history of transient ischemic attack (TIA), and cerebral infarction without residual deficits; Z86.2 Personal history of diseases of the blood and blood-forming organs and certain disorders involving the immune mechanism; Z98.890 Other specified postprocedural states; W18.30XA Fall on same level, unspecified, initial encounter; Y92.009 Unspecified place in unspecified non-institutional (private) residence as the place of occurrence of the external cause; Z82.49 Family history of ischemic heart disease and other diseases of the circulatory system
CPT/HCPCS: 36415; 70450; 71045; 72125; 73502; 74021; 74230; 80048; 80053; 81001; 82805; 83735; 84484; 85025; 85610; 85730; 87635; 93005; 94640; 94660; 94760; 99285